=== PATIENT | male | born 1955 | race Caucasian/White ===

== ENCOUNTER 2018-06-23 05:03 | Inpatient (IN) ==
[2018-06-23 05:42] LABS: Basophils # 0.1 K/mm3 (0-0.2); Basophils % 0.3 % (0.1-2.0); Eosinophils # 0.1 K/mm3 (0.0-0.4); Eosinophils % 0.7 % (0.1-12.0); Hematocrit 49.9 % (42.0-52.0); Hemoglobin 16.2 g/dL (14.1-18.0); Lymphocytes # 2.7 K/mm3 (0.7-4.5); Lymphocytes % 17.2 K/mm3 (10-50); Mean Corpuscular HGB Conc 32.5 g/dL (31.8-35.4); Mean Corpuscular Hemoglobin 31.8 pg (27.0-31.2); Mean Corpuscular Volume 97.6 fl (80-94); Mean Platelet Volume 7.8 fl (7.4-10.4); Monocytes # 0.5 K/mm3 (0.1-1.0); Monocytes % 2.9 % (1.7-9.3); Neutrophils # 12.3 K/mm3 (1.8-7.8); Neutrophils % 78.8 % (37.0-80.0); Platelet Count 251 K/mm3 (142-424); Red Blood Count 5.11 M/mm3 (4.60-6.20); Red Cell Distribution Width 13.7 % (11.5-17.5); White Blood Count 15.6 K/mm3 (4.8-10.8)
[2018-06-23 05:53] LABS: Albumin Level 3.7 gm/dL (3.4-5.0); Bilirubin,Total 1.4 mg/dL (0.2-1.0); Globulin 3.6 gm/dl (1.3-3.2); Total Protein,Serum 7.3 gm/dL (6.4-8.2)
[2018-06-23 06:19] LABS: Appearance,Urine CLEAR (Clear); Blood, Urine Negative (Negative); Color,Urine YELLOW (Yellow); Glucose,Urine (UA) Negative (Negative); Ketones,Urine Negative (Negative); Leukocyte Esterase,Urine Negative (Negative); Microscopic, Urine URINE MICROSCOPIC (MICROSCOPIC); Protein,Urine 1+ (Negative)
[2018-06-23 06:36] LABS: Bacteria,Urine 3+ /lpf; Bilirubin,Urine Negative (Negative); Mucus,Urine 1+ /lpf; Squamous Epithelial Cell,Urine Occasional #/hpf (0-5)
[2018-06-23 06:39] LABS: Lymphocytes % 12 % (10-50); Monocytes % 1 % (2-9); Neutrophils % 81 % (42-76); RBC Morphology Normal; Total Cells Counted 100
--- NOTE | 2018-06-23 07:14 | Emergency Department Note ---
ED Disposition Clinical Impression: Pancreatitis, acute Qualifiers: Pancreatitis type: other Acute pancreatitis complication: no infection or necrosis Qualified Code(s): K85.80 - Other acute pancreatitis without necrosis or infection Cholelithiasis Qualifiers: Cholelithiasis location: gallbladder Cholecystitis presence: with cholecystitis Cholecystitis acuity: acute Biliary obstruction: without biliary obstruction Qualified Code(s): K80.00 - Calculus of gallbladder with acute cholecystitis without obstruction Disposition: Admitted As Inpatient Condition on Discharge: Good Instructions: DI for Nausea -- Adult, DI for Nausea -- Child, DI for Diarrhea and Traveler's Diarrhea -- Adult, DI for Diarrhea and Traveler's Diarrhea -- Child Referrals: Yessy Burton MD [Primary Care Provider] - - Critical Care Critical Care Time: No Attestation: On 06/23/18, the high probability of a clinically significant, sudden or life threatening deterioration of the following system(s) required my full and direct attention, intervention and personal management. The time I documented below is in addition to time spent performing reported procedures but includes the following listed in this critical care notation. Medical Decision Making - Medical Records Medical records reviewed: Yes: I reviewed the patient's medical records. - Blake Inquiry Pt receiving controlled substance: No Vital Signs: 06/23/18 05:11 06/23/18 06:39 Temperature 97.9 F Temperature Source Oral Pulse Rate [Right Radial] 92 H 92 H Respiratory Rate 16 Blood Pressure [Right Arm] 129/75 127/77 Blood Pressure Mean [Right Arm] 93 93 Blood Pressure Source [Right Arm] Automatic Cuff Manual Cuff/ Doppler Blood Pressure Position [Right Arm] Sitting Sitting 02 Sat by Pulse Oximetry 95 95 Oxygen Delivery Method Room Air - Lab Data Lab results reviewed: Yes: I reviewed the patient's lab results. Lab Results 06/23/18 05:30: WBC 15.6 H, RBC 5.11, Hgb 16.2, Hct 49.9, MCV 97.6 H, MCH 31.8 H , MCHC 32.5, RDW 13.7, Plt Count 251, MPV 7.8, Neut % (Auto) 78.8, Lymph % (Auto) 17.2, [place] % (Auto) 2.9, Eos % (Auto) 0.7, Baso % (Auto) 0.3, Neut # (Auto) 12.3 H, Lymph # (Auto) 2.7, [place] # (Auto) 0.5, Eos # (Auto) 0.1, Baso # (Auto) 0.1, Total Counted 100, Neutrophils % (Manual) 81 H, Lymphocytes % (Manual) 12, Atypical Lymphs % 6.0, Monocytes % (Manual) 1 L, Platelet Estimate Normal, RBC Morphology Normal 06/23/18 05:30: Sodium 145, Potassium 4.0, Chloride 107, Carbon Dioxide 27, Anion Gap 15.0, BUN 19 H, Creatinine 1.74 H, Estimated Creat Clear 46, Estimated GFR 40 L, Est GFR ( Amer) 49 L, Glucose 197 H, Calcium 9.0, Total Bilirubin 1.4 H, AST 235 H, ALT 139 H, Alkaline Phosphatase 129 H, Total Protein 7.3, Albumin 3.7, Globulin 3.6 H, Albumin/Globulin Ratio 1.0 L, Amylase 2360 H*, Lipase 16546 H 06/23/18 05:30: C-Reactive Protein 0.4 06/23/18 06:10: Urine Color Yellow, Urine Appearance Clear, Urine pH 6.0, Ur Specific [place] 1.020, Urine Protein 1+, Urine Glucose (UA) Negative, Urine Ketones Negative, Urine Blood Negative, Urine Nitrate Negative, Urine Bilirubin Negative, Urine Urobilinogen 4.0, Ur Leukocyte Esterase Negative, Urine WBC 3-5, Ur Squamous Epith Cells Occasional, Urine Bacteria 3+, Urine Mucus 1+ Result diagrams: 06/23/18 05:30 06/23/18 05:30 Orders (Tests/Meds): ED MEDICATIONS Discontinued Medications Generic Name Dose Route Start Last Admin Trade Name Darion PRN Reason Stop Dose Admin Famotidine 20 mg 06/23/18 05:21 06/23/18 05:41 Pepcid 20mg/2ml Vial IV 06/23/18 05:22 20 mg ONCE ONE Administration Sodium Chloride 1,000 mls @ 999 mls/hr 06/23/18 05:30 06/23/18 05:41 Sod Chlor 0.9% 1000ml Bag IV 06/23/18 06:30 999 mls/hr .Q1H1M TIFFANY Administration Ketorolac Tromethamine 30 mg 06/23/18 06:02 06/23/18 06:15 Toradol 30mg/Ml Vial IV 06/23/18 06:03 Not Given ONCE ONE Metoclopramide HCl 10 mg 06/23/18 05:21 06/23/18 05:41 Reglan 10mg/2ml Vial IVP 06/23/18 05:22 10 mg ONCE ONE Administration Morphine Sulfate 4 mg 06/23/18 06:04 06/23/18 06:14 Morphine 4mg/Ml Syringe IV 06/23/18 06:05 4 mg ONCE ONE Administration Ondansetron HCl 4 mg 06/23/18 06:03 06/23/18 06:14 Zofran 4mg/2ml Vial IV 06/23/18 06:04 4 mg ONCE ONE Administration ORDERS Category Date Time Status CT abdomen pelvis wo con Stat Cat Scan 06/23/18 05:21 Taken Erythrocyte Sedimentation Rate Stat Lab 06/23/18 05:30 Received Lactic Acid Stat Lab 06/23/18 06:45 Received UA [Urinalysis and Microscopic] Stat Lab 06/23/18 06:10 Ordered Blood Culture Stat Micro 06/23/18 06:53 Ordered Blood Culture Stat Micro 06/23/18 06:53 Ordered Blood Culture Stat Micro 06/23/18 06:53 Ordered Urine Culture Stat Micro 06/23/18 06:10 Received - CT Data CT Scan: Abdomen, Pelvis Time Received: 07:[address] Reviewed: Yes: I have viewed the radiologist's interpretation Preliminary Findings: Abnormal (gallstones -pancreatitis ) - Physician Consults Physician Consulted: jaye Reason -: Admission Nausea/Vomiting/Diarrhea HPI - General Chief complaint: Nausea/Vomiting/Diarrhea Stated complaint: Vomiting Blood,stomach pain Time Seen by Provider: 06/23/18 06:00 Mode of Arrival: Wheelchair Source of Information: Patient, Spouse, Medical Record Limitations: No Limitations Description of Symptoms (Recalled from ER Triage Doc. by RN): Pt reports vomiting since 0230 with abdominal pain radiating into the epigastric area. Pt reports he has been vomiting bright red blood blood. - History of Present Illness HPI Narrative: pt with hx of known gallstones and has upper abd pain this am assoc with nausea - also some blood with vomitus but reports has sl nosebleed- no fever or melena complaint: nausea, vomiting, abdominal pain Onset (ago): hour(s) Associated Abdominal Pain: Yes Location of pain: epigastric Severity: moderate Associated symptoms: nausea/vomiting - Related Data Home Medications Medication Instructions Recorded Confirmed aspirin 81 mg tablet,delayed 81 mg PO DAILY tab 03/27/18 06/23/18 release bisoprolol fumarate 5 mg tablet 5 mg PO DAILY tab 03/27/18 06/23/18 celecoxib 200 mg capsule 200 mg PO DAILY cap 03/27/18 06/23/18 furosemide 20 mg tablet 20 mg PO DAILY tab 03/27/18 06/23/18 gabapentin 100 mg capsule 100 mg PO QHS 03/27/18 06/23/18 omeprazole 40 mg capsule,delayed 40 mg PO DAILY PRN cap 03/27/18 06/23/18 release Allergies Allergy/AdvReac Type Severity Reaction Status Date / Time No Known Allergies Allergy Verified 06/23/18 05:18 [facility] History I have reviewed the patient's past medical history: Yes Medical History: Reports:: Hypertension Other Surgeries: Yes: Appendectomy, Cardiac Catheterization, Colonoscopy Comment: L knee meniscus rx x2, Vasectomy - Social History Smoking Status: Never smoker Alcohol Intake: never - Psychiatric History Expresses thoughts of harming self/others: None Suicide Plan Description: No Plan Family Hx:: Cancer, Heart Attack ROS Obtained: Yes All systems reviewed & no additional complaints - Constitutional Constitutional: Denies fever(s) - Eyes Eyes: Denies change in vision - ENT Ears, Nose, Mouth, and Throat: Denies sore throat - Cardiovascular Cardiovascular: Denies chest pain - Respiratory Respiratory: No cough - Gastrointestinal Gastrointestingal: Reports: as per HPI, abdominal pain, nausea, vomiting - Genitourinary Male Genitourinary: Denies hematuria - Musculoskeletal Musculoskeletal: Denies joint pain - Integumentary/Breasts Skin/Breast: Denies rash - Neurologic Neurologic: Denies seizure-like activity Physical Exam - General General appearance: in no apparent distress - Head Head exam: normocephalic - Eye Eye exam: Present: PERRL, EOMI. Absent: scleral icterus - ENT ENT exam: Present: mucous membranes dry - Neck Neck exam: Present: trachea midline - Respiratory Respiratory exam: Present: normal lung sounds bilaterally. Absent: respiratory distress - Cardiovascular Cardiovascular exam: Present: regular rate, systolic murmur - Abdominal Exam Abdominal exam: Present: soft, tenderness Abdominal tenderness: Present: epigastrium, moderate - Extremities Exam Extremities exam: Present: full ROM - Neurological Exam Neurological exam: Present: alert, oriented X3, CN II-XII intact - Psychiatric Psychiatric exam: Present: normal affect - Skin Skin exam: Absent: rash
--- NOTE | 2018-06-23 08:49 | Consult Report ---
*Admission Date: 06/23/18 *Chief complaint: Abdominal pain *History of present illness: Patient is a 63-year-old white male. In September 2016 he had undergone screening colonoscopy with Dr. Spaulding. He had presented to the emergency department the following day with complaints of left-sided abdominal pain. His workup at that time included a CT scan which revealed gallstones. Patient had seen Dr. Spaulding as a follow-up and it was felt felt that the gallstones were an incidental finding and appropriately cholecystectomy was not pursued. Patient was in his usual state of health until approximately 2 AM this morning at which time he developed acute sudden onset of upper abdominal pain. He describes pain from the lower chest area to the umbilicus. He has associated nausea and vomiting. He presented to the emergency department where he was seen and evaluated. He was found to have some mild elevation of liver function tests with profound elevation of pancreatic enzymes. CT scan without any contrast whatsoever revealed findings of gallstones and inflammatory changes of the pancreas consistent with acute pancreatitis. He was admitted for inpatient management. Surgical consultation was obtained. Review of Systems - Review of Systems Review of systems:: pertinent systems reviewed and negative unless documented below - Constitutional Reports anorexia - Eyes Denies change in vision - ENT Denies abnormal hearing - *Cardiovascular Reports chest pain - *Respiratory Denies shortness of breath - *Gastrointestinal Reports abdominal pain, Reports nausea, Reports vomiting - *Genitourinary Denies difficulty urinating - *Musculoskeletal Denies joint pain - *Neurologic Denies seizure-like activity [facility] History Medical History: Reports:: Hypertension Other Surgeries: Yes: Appendectomy, Cardiac Catheterization, Colonoscopy - *Social History Smoking Status: Never smoker Alcohol Intake: never - Psychiatric History Expresses thoughts of harming self/others: None Suicide Plan Description: No Plan *Family Hx:: Cancer, Heart Attack Meds Home Medications Medication Instructions Recorded Confirmed Type aspirin 81 mg tablet,delayed 81 mg PO DAILY tab 03/27/18 06/23/18 History release bisoprolol fumarate 5 mg tablet 5 mg PO DAILY tab 03/27/18 06/23/18 History celecoxib 200 mg capsule 200 mg PO DAILY cap 03/27/18 06/23/18 History furosemide 20 mg tablet 20 mg PO DAILY tab 03/27/18 06/23/18 History gabapentin 100 mg capsule 100 mg PO QHS 03/27/18 06/23/18 History omeprazole 40 mg capsule,delayed 40 mg PO DAILY PRN cap 03/27/18 06/23/18 History release Allergies Allergy/AdvReac Type Severity Reaction Status Date / Time No Known Allergies Allergy Verified 06/23/18 05:18 Exam Vital signs and Labs for Last 24 Hours: Temp Pulse Resp BP Pulse Ox 97.3 F L 95 H 18 144/81 96 06/23/18 08:37 06/23/18 08:37 06/23/18 08:37 06/23/18 08:37 06/23/18 08:37 Laboratory Results - last 24 hr 06/23/18 05:30: WBC 15.6 H, RBC 5.11, Hgb 16.2, Hct 49.9, MCV 97.6 H, MCH 31.8 H , MCHC 32.5, RDW 13.7, Plt Count 251, MPV 7.8, Neut % (Auto) 78.8, Lymph % (Auto) 17.2, [place] % (Auto) 2.9, Eos % (Auto) 0.7, Baso % (Auto) 0.3, Neut # (Auto) 12.3 H, Lymph # (Auto) 2.7, [place] # (Auto) 0.5, Eos # (Auto) 0.1, Baso # (Auto) 0.1, Total Counted 100, Neutrophils % (Manual) 81 H, Lymphocytes % (Manual) 12, Atypical Lymphs % 6.0, Monocytes % (Manual) 1 L, Platelet Estimate Normal, RBC Morphology Normal 06/23/18 05:30: Sodium 145, Potassium 4.0, Chloride 107, Carbon Dioxide 27, Anion Gap 15.0, BUN 19 H, Creatinine 1.74 H, Estimated Creat Clear 46, Estimated GFR 40 L, Est GFR ( Amer) 49 L, Glucose 197 H, Calcium 9.0, Total Bilirubin 1.4 H, AST 235 H, ALT 139 H, Alkaline Phosphatase 129 H, Total Protein 7.3, Albumin 3.7, Globulin 3.6 H, Albumin/Globulin Ratio 1.0 L, Amylase 2360 H*, Lipase 88058 H 06/23/18 05:30: ESR 8 06/23/18 05:30: C-Reactive Protein 0.4 06/23/18 06:10: Urine Color Yellow, Urine Appearance Clear, Urine pH 6.0, Ur Specific [place] 1.020, Urine Protein 1+, Urine Glucose (UA) Negative, Urine Ketones Negative, Urine Blood Negative, Urine Nitrate Negative, Urine Bilirubin Negative, Urine Urobilinogen 4.0, Ur Leukocyte Esterase Negative, Urine WBC 3-5, Ur Squamous Epith Cells Occasional, Urine Bacteria 3+, Urine Mucus 1+ 06/23/18 06:45: Lactate 2.1 H I & O for Last 24 hours: Intake & Output 06/20/18 06/21/18 06/22/18 06/23/18 11:59 11:59 11:59 11:59 Weight 290 lb - Constitutional mild distress - *Routine HEENT Exam Comments: Sclera nonicteric - *Routine Respiratory Exam Present: CTA bilaterally - *Routine Cardiovascular Exam Present: RRR - *Routine Abdominal Exam Present: tenderness Comments: Patient has significant tenderness mostly in the mid upper abdomen with some voluntary guarding Results - Labs 06/23/18 05:30 06/23/18 05:30 Laboratory Results - last 24 hr 06/23/18 05:30: WBC 15.6 H, RBC 5.11, Hgb 16.2, Hct 49.9, MCV 97.6 H, MCH 31.8 H , MCHC 32.5, RDW 13.7, Plt Count 251, MPV 7.8, Neut % (Auto) 78.8, Lymph % (Auto) 17.2, [place] % (Auto) 2.9, Eos % (Auto) 0.7, Baso % (Auto) 0.3, Neut # (Auto) 12.3 H, Lymph # (Auto) 2.7, [place] # (Auto) 0.5, Eos # (Auto) 0.1, Baso # (Auto) 0.1, Total Counted 100, Neutrophils % (Manual) 81 H, Lymphocytes % (Manual) 12, Atypical Lymphs % 6.0, Monocytes % (Manual) 1 L, Platelet Estimate Normal, RBC Morphology Normal 06/23/18 05:30: Sodium 145, Potassium 4.0, Chloride 107, Carbon Dioxide 27, Anion Gap 15.0, BUN 19 H, Creatinine 1.74 H, Estimated Creat Clear 46, Estimated GFR 40 L, Est GFR ( Amer) 49 L, Glucose 197 H, Calcium 9.0, Total Bilirubin 1.4 H, AST 235 H, ALT 139 H, Alkaline Phosphatase 129 H, Total Protein 7.3, Albumin 3.7, Globulin 3.6 H, Albumin/Globulin Ratio 1.0 L, Amylase 2360 H*, Lipase 11702 H 06/23/18 05:30: ESR 8 06/23/18 05:30: C-Reactive Protein 0.4 06/23/18 06:10: Urine Color Yellow, Urine Appearance Clear, Urine pH 6.0, Ur Specific [place] 1.020, Urine Protein 1+, Urine Glucose (UA) Negative, Urine Ketones Negative, Urine Blood Negative, Urine Nitrate Negative, Urine Bilirubin Negative, Urine Urobilinogen 4.0, Ur Leukocyte Esterase Negative, Urine WBC 3-5, Ur Squamous Epith Cells Occasional, Urine Bacteria 3+, Urine Mucus 1+ 06/23/18 06:45: Lactate 2.1 H Assessment and Plan - Assessment and plan all Dx Assessment and Plan for all problems:: Patient has significant pancreatitis, presumed biliary in origin. Plan for bowel rest and IV fluids at this time with antiemetics as needed. Monitor liver function tests. Obtain gallbladder ultrasound tomorrow morning. If he has progressive elevation of bilirubin/alkaline phosphatase he could require ERCP urgently. Eventual plan will be for cholecystectomy to eliminate the presumed etiology of pancreatitis.
--- NOTE | 2018-06-23 10:35 | Pharmacy Consult Notes ---
[facility] Pharmacy VTE Monitoring - Patient Demographics Admission date: 06/23/18 Report Date: 06/23/18 Time: 10:34 Allergies/Adverse Reactions: Patient Allergies No Known Allergies Allergy (Verified 06/23/18 05:18) Height: 1.78 m Weight: 131.542 kg Patient Problems: Current Active Problems Pancreatitis, acute (Acute) Cholelithiasis (Acute) - VTE Risk Labs: VTE Related Lab Results Hgb 16.2 g/dL (14.1-18.0) 06/23/18 05:30 Hct 49.9 % (42.0-52.0) 06/23/18 05:30 Plt Count 251 K/mm3 (142-424) 06/23/18 05:30 BUN 19 mg/dL (7-18) H 06/23/18 05:30 Creatinine 1.74 mg/dL (0.70-1.30) H 06/23/18 05:30 Estimated Creat Clear 46 mL/min (0-300) 06/23/18 05:30 Was VTE Risk Assessment Performed: Yes VTE Score: 2 VTE Risk Level: Low Risk - Prophylaxis VTE Prophylaxis Ordered?: Yes Types of VTE Prophylaxis: TEDS Knee High Location of Applied Device: Bilateral Lower Extremeties - VTE Diagnosis Confirmed Treatment or plan recommended: Continue Current Treatment
--- NOTE | 2018-06-23 12:23 | Progress Note ---
Internal Medicine - PN: Subj *Date: 06/23/18 *Time: 12:20 Interval history: The patient is seen in the chart is reviewed. He has cholelithiasis which has been known. He now has evolved to cholecystitis with pancreatitis. Dr. Heart has consulted on the patient. Patient is receiving IV antibiotics. He is n.p.o. except for water and ice chips. He is receiving pain medication. He has some degree of heart history. He will be placed on telemetry. EKG is normal. Exam Vital signs and Labs for Last 24 Hours: Temp Pulse Resp BP Pulse Ox 97.3 F L 95 H 18 144/81 96 06/23/18 08:37 06/23/18 10:21 06/23/18 10:21 06/23/18 08:37 06/23/18 10:21 Laboratory Results - last 24 hr 06/23/18 05:30: WBC 15.6 H, RBC 5.11, Hgb 16.2, Hct 49.9, MCV 97.6 H, MCH 31.8 H , MCHC 32.5, RDW 13.7, Plt Count 251, MPV 7.8, Neut % (Auto) 78.8, Lymph % (Auto) 17.2, [place] % (Auto) 2.9, Eos % (Auto) 0.7, Baso % (Auto) 0.3, Neut # (Auto) 12.3 H, Lymph # (Auto) 2.7, [place] # (Auto) 0.5, Eos # (Auto) 0.1, Baso # (Auto) 0.1, Total Counted 100, Neutrophils % (Manual) 81 H, Lymphocytes % (Manual) 12, Atypical Lymphs % 6.0, Monocytes % (Manual) 1 L, Platelet Estimate Normal, RBC Morphology Normal 06/23/18 05:30: Sodium 145, Potassium 4.0, Chloride 107, Carbon Dioxide 27, Anion Gap 15.0, BUN 19 H, Creatinine 1.74 H, Estimated Creat Clear 46, Estimated GFR 40 L, Est GFR ( Amer) 49 L, Glucose 197 H, Calcium 9.0, Total Bilirubin 1.4 H, AST 235 H, ALT 139 H, Alkaline Phosphatase 129 H, Total Protein 7.3, Albumin 3.7, Globulin 3.6 H, Albumin/Globulin Ratio 1.0 L, Amylase 2360 H*, Lipase 41013 H 06/23/18 05:30: ESR 8 06/23/18 05:30: C-Reactive Protein 0.4 06/23/18 05:30: Lactate Dehydrogenase 436 H 06/23/18 06:10: Urine Color Yellow, Urine Appearance Clear, Urine pH 6.0, Ur Specific [place] 1.020, Urine Protein 1+, Urine Glucose (UA) Negative, Urine Ketones Negative, Urine Blood Negative, Urine Nitrate Negative, Urine Bilirubin Negative, Urine Urobilinogen 4.0, Ur Leukocyte Esterase Negative, Urine WBC 3-5, Ur Squamous Epith Cells Occasional, Urine Bacteria 3+, Urine Mucus 1+ 06/23/18 06:45: Lactate 2.1 H 06/23/18 10:45: Lactate 2.6 H I & O for Last 24 hours: Intake & Output 06/21/18 06/22/18 06/23/18 06/24/18 11:59 11:59 11:59 11:59 Weight 290 lb - Constitutional moderate distress - *Routine HEENT Exam Head: Present: normocephalic Eye: Present: PERRL ENT: Present: mucous membranes moist - *Routine Respiratory Exam Present: CTA bilaterally - *Routine Cardiovascular Exam Present: tachycardia (Sinus tachycardia) - *Routine Abdominal Exam Present: soft, tenderness (Epigastric tenderness) - *Routine Extremities Exam Present: edema Comments: Trace to 1+ - *Routine Skin Exam Present: intact, dry - *Routine Neurological Exam Present: alert, oriented X3 Assessment and Plan (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 I increased the Dilaudid dose. EKG is normal. Cardiac telemetry is ordered.
--- NOTE | 2018-06-23 13:56 | History & Physical Report ---
*Admission Date: 06/23/18 *Chief complaint: Abdominal pain nausea and vomiting. *History of present illness: This 63-year-old white male admitted in the emergency room early this morning with abdominal pain nausea and vomiting. He states that his pain started about 2 AM. Prior to that he had felt well through the day. Patient has known cholelithiasis which was documented in 2015. Dr. Spaulding consulted on him at that time. In the emergency room his amylase and lipase were markedly elevated. He was admitted with the impression of cholelithiasis and pancreatitis. This was confirmed on CT scan prior to admission. Significant in the patient's picture is some coronary artery disease. 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 He has been followed for this by Dr. Hernandez. Also significant in the past history is a DVT and pulmonary embolism in 2004. [facility] History Medical History: Reports:: Hypertension Other Surgeries: Yes: Appendectomy, Cardiac Catheterization, Colonoscopy - *Social History Educational Level: Completed High School Smoking Status: Never smoker Alcohol Intake: never Occupational Status: employed - Psychiatric History Expresses thoughts of harming self/others: None Suicide Plan Description: No Plan *Family Hx:: Cancer (Father at age 73 of lung cancer), Heart Attack (Mother at age 50 of a heart attack) Review of Systems - Constitutional Denies chills, Denies fever(s), Denies weight loss - Eyes Denies change in vision - *Cardiovascular Denies chest pain, Denies chest pain with activity, Denies shortness of breath - *Respiratory Denies chest congestion, Denies cough - *Gastrointestinal Reports abdominal pain, Reports bloating, Reports heartburn (He takes omeprazole), Reports vomiting blood, Reports nausea, Denies black, tarry stools - *Genitourinary Denies difficulty urinating - *Musculoskeletal Denies body aches, Denies neck pain - *Neurologic Reports dizziness (Episodic in the past history), Denies abnormal hearing, Denies seizure-like activity - Psychiatric Denies depression Meds Home Medications Medication Instructions Recorded Confirmed Type aspirin 81 mg tablet,delayed 81 mg PO DAILY tab 03/27/18 06/23/18 History release bisoprolol fumarate 5 mg tablet 5 mg PO DAILY tab 03/27/18 06/23/18 History celecoxib 200 mg capsule 200 mg PO DAILY cap 03/27/18 06/23/18 History furosemide 20 mg tablet 20 mg PO DAILY tab 03/27/18 06/23/18 History gabapentin 100 mg capsule 100 mg PO QHS 03/27/18 06/23/18 History omeprazole 40 mg capsule,delayed 40 mg PO DAILY PRN cap 03/27/18 06/23/18 History release Allergies Allergy/AdvReac Type Severity Reaction Status Date / Time No Known Allergies Allergy Verified 06/23/18 05:18 Exam Vital signs and Labs for Last 24 Hours: Temp Pulse Resp BP Pulse Ox 97.3 F L 100 H 18 144/81 96 06/23/18 08:37 06/23/18 12:00 06/23/18 10:21 06/23/18 08:37 06/23/18 10:21 Laboratory Results - last 24 hr 06/23/18 05:30: WBC 15.6 H, RBC 5.11, Hgb 16.2, Hct 49.9, MCV 97.6 H, MCH 31.8 H , MCHC 32.5, RDW 13.7, Plt Count 251, MPV 7.8, Neut % (Auto) 78.8, Lymph % (Auto) 17.2, [place] % (Auto) 2.9, Eos % (Auto) 0.7, Baso % (Auto) 0.3, Neut # (Auto) 12.3 H, Lymph # (Auto) 2.7, [place] # (Auto) 0.5, Eos # (Auto) 0.1, Baso # (Auto) 0.1, Total Counted 100, Neutrophils % (Manual) 81 H, Lymphocytes % (Manual) 12, Atypical Lymphs % 6.0, Monocytes % (Manual) 1 L, Platelet Estimate Normal, RBC Morphology Normal 06/23/18 05:30: Sodium 145, Potassium 4.0, Chloride 107, Carbon Dioxide 27, Anion Gap 15.0, BUN 19 H, Creatinine 1.74 H, Estimated Creat Clear 46, Estimated GFR 40 L, Est GFR ( Amer) 49 L, Glucose 197 H, Calcium 9.0, Total Bilirubin 1.4 H, AST 235 H, ALT 139 H, Alkaline Phosphatase 129 H, Total Protein 7.3, Albumin 3.7, Globulin 3.6 H, Albumin/Globulin Ratio 1.0 L, Amylase 2360 H*, Lipase 56287 H 06/23/18 05:30: ESR 8 09/16/18 05:30: C-Reactive Protein 0.4 06/23/18 05:30: Lactate Dehydrogenase 436 H 06/23/18 06:10: Urine Color Yellow, Urine Appearance Clear, Urine pH 6.0, Ur Specific [place] 1.020, Urine Protein 1+, Urine Glucose (UA) Negative, Urine Ketones Negative, Urine Blood Negative, Urine Nitrate Negative, Urine Bilirubin Negative, Urine Urobilinogen 4.0, Ur Leukocyte Esterase Negative, Urine WBC 3-5, Ur Squamous Epith Cells Occasional, Urine Bacteria 3+, Urine Mucus 1+ 06/23/18 06:45: Lactate 2.1 H 06/23/18 10:45: Lactate 2.6 H 06/23/18 12:50: Lactate 2.6 H I & O for Last 24 hours: Intake & Output 06/21/18 06/22/18 06/23/18 06/24/18 11:59 11:59 11:59 11:59 Intake Total 0 / 0 Balance 0 / 0 Weight 290 lb - Constitutional moderate distress - *Routine HEENT Exam Head: Present: normocephalic Eye: Present: PERRL ENT: Present: mucous membranes dry - *Routine Neck Exam Present: supple. Absent: lymphadenopathy - Routine Chest/Breast/Axilla Exam Chest wall: Absent: tenderness - *Routine Respiratory Exam Present: CTA bilaterally - *Routine Cardiovascular Exam Present: tachycardia Comments: Sinus tachycardia 120 - *Routine Abdominal Exam Comments: Obese. Tenderness in the epigastric region. No masses or organomegaly - *Routine Rectal Exam Comments: Not performed - *Routine Extremities Exam Present: edema Comments: 1+ edema - *Routine Neurological Exam Present: alert, oriented X3 Uncomfortable due to pain. H&P: Result - Imaging and Cardiology CT scan - abdomen Status: final report Assessment and Plan (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 See Dr. Heart's consultation. He is receiving IV antibiotics and pain medication. traffic monitor specialist is placed. EKG is obtained and reviewed.
[2018-06-24 06:49] LABS: Basophils % 0.1 % (0.1-2.0); Eosinophils # 0.1 K/mm3 (0.0-0.4); Eosinophils % 0.4 % (0.1-12.0); Hematocrit 42.6 % (42.0-52.0); Hemoglobin 13.6 g/dL (14.1-18.0); Lymphocytes # 1.7 K/mm3 (0.7-4.5); Lymphocytes % 12.8 K/mm3 (10-50); Mean Corpuscular HGB Conc 31.8 g/dL (31.8-35.4); Mean Corpuscular Hemoglobin 31.5 pg (27.0-31.2); Mean Corpuscular Volume 98.9 fl (80-94); Monocytes # 0.7 K/mm3 (0.1-1.0); Monocytes % 5.3 % (1.7-9.3); Neutrophils # 10.7 K/mm3 (1.8-7.8); Neutrophils % 81.4 % (37.0-80.0); Platelet Count 171 K/mm3 (142-424); Red Cell Distribution Width 13.8 % (11.5-17.5); White Blood Count 13.2 K/mm3 (4.8-10.8)
[2018-06-24 06:59] LABS: Albumin Level 3.1 gm/dL (3.4-5.0); Albumin/Globulin Ratio 0.9 (1.1-1.8); Anion Gap 9.7 mEq/L (5-15); Bilirubin,Total 1.3 mg/dL (0.2-1.0); Calcium 8.3 mg/dL (8.5-10.1); Chol/HDL Ratio 2.1 (1-3.5); Globulin 3.3 gm/dl (1.3-3.2); Potassium 4.7 mmoL/L (3.5-5.1); Total Protein,Serum 6.4 gm/dL (6.4-8.2)
--- NOTE | 2018-06-24 07:55 | Progress Note ---
Subjective Narrative: Patient states that his symptoms had improved somewhat overnight but he does have some increasing pain today. He denies any nausea. Exam Vital signs and Labs for Last 24 Hours: Temp Pulse Resp BP Pulse Ox 98.4 F 85 18 130/80 93 L 06/24/18 04:00 06/24/18 04:00 06/24/18 04:00 06/24/18 04:00 06/24/18 04:00 Laboratory Results - last 24 hr 06/23/18 05:30: Lactate Dehydrogenase 436 H 06/23/18 10:45: Lactate 2.6 H 06/23/18 12:50: Lactate 2.6 H 06/24/18 06:30: WBC 13.2 H, RBC 4.30 L, Hgb 13.6 L, Hct 42.6, MCV 98.9 H, MCH 31.5 H, MCHC 31.8, RDW 13.8, Plt Count 171 D, MPV 8.0, Neut % (Auto) 81.4 H, Lymph % (Auto) 12.8, [place] % (Auto) 5.3, Eos % (Auto) 0.4, Baso % (Auto) 0.1, Neut # (Auto) 10.7 H, Lymph # (Auto) 1.7, [place] # (Auto) 0.7, Eos # (Auto) 0.1, Baso # (Auto) 0.0 06/24/18 06:30: Sodium 143, Potassium 4.7, Chloride 108 H, Carbon Dioxide 30, Anion Gap 9.7, BUN 16, Creatinine 1.25 D, Estimated Creat Clear 64, Estimated GFR 59, Est GFR ( Amer) 71 D, Glucose 112 H, Calcium 8.3 L, Total Bilirubin 1.3 H, AST 86 H D, ALT 181 H D, Alkaline Phosphatase 102, Total Protein 6.4, Albumin 3.1 L D, Globulin 3.3 H, Albumin/Globulin Ratio 0.9 L, Tr iglycerides 49, Cholesterol 93 L, LDL Cholesterol 38, VLDL Cholesterol 10, HDL Cholesterol 45, Cholesterol/HDL Ratio 2.1, Amylase 423 H*, Lipase 3303 H I & O for Last 24 hours: Intake & Output 06/21/18 06/22/18 06/23/18 06/24/18 11:59 11:59 11:59 11:59 Intake Total 340 / 340 Output Total 500 / 500 Balance -160 / -160 Weight 290 lb Microbiology Reports for the Last 24 Hours: Microbiology 06/23/18 06:10 Urine,Clean Catch Urine Culture - Preliminary NO GROWTH AFTER 24 HOURS - *Routine Abdominal Exam Present: soft Comments: He has mild tenderness in the right upper quadrant and epigastrium without guarding or rebound. Progress Note: A&P (1) Myocardial bridge Status: Acute Current Visit: Yes (2) Hypertension Status: Acute Current Visit: Yes Assessment and Plan for All Diagnoses:: Laboratory studies have shown some improvement in pancreatitis. Continue bowel, rest IV fluids and intravenous antibiotics. Gallbladder ultrasound today to assess gallbladder and biliary tree.
--- NOTE | 2018-06-24 09:27 | Progress Note ---
Internal Medicine - PN: Subj *Date: 06/24/18 *Time: 09:24 Interval history: He feels better but still has abdominal discomfort. He had an ultrasound performed this morning. He complains of cough and production of bright red blood. He remains afebrile. His amylase and lipase have declined si gnificantly. His lungs sound clear. His heart is regular. His abdomen is distended but soft. Bowel sounds are decreased. Exam Vital signs and Labs for Last 24 Hours: Temp Pulse Resp BP Pulse Ox 99.1 F 86 18 129/71 96 06/24/18 08:00 06/24/18 08:00 06/24/18 08:00 06/24/18 08:00 06/24/18 08:00 Laboratory Results - last 24 hr 06/23/18 05:30: Lactate Dehydrogenase 436 H 06/23/18 10:45: Lactate 2.6 H 06/23/18 12:50: Lactate 2.6 H 06/24/18 06:30: WBC 13.2 H, RBC 4.30 L, Hgb 13.6 L, Hct 42.6, MCV 98.9 H, MCH 31.5 H, MCHC 31.8, RDW 13.8, Plt Count 171 D, MPV 8.0, Neut % (Auto) 81.4 H, Lymph % (Auto) 12.8, [place] % (Auto) 5.3, Eos % (Auto) 0.4, Baso % (Auto) 0.1, Neut # (Auto) 10.7 H, Lymph # (Auto) 1.7, [place] # (Auto) 0.7, Eos # (Auto) 0.1, Baso # (Auto) 0.0 06/24/18 06:30: Sodium 143, Potassium 4.7, Chloride 108 H, Carbon Dioxide 30, Anion Gap 9.7, BUN 16, Creatinine 1.25 D, Estimated Creat Clear 64, Estimated GFR 59, Est GFR ( Amer) 71 D, Glucose 112 H, Calcium 8.3 L, Total Bilirubin 1.3 H, AST 86 H D, ALT 181 H D, Alkaline Phosphatase 102, Total Protein 6.4, Albumin 3.1 L D, Globulin 3.3 H, Albumin/Globulin Ratio 0.9 L, Triglycerides 49, Cholesterol 93 L, LDL Cholesterol 38, VLDL Cholesterol 10, HDL Cholesterol 45, Cholesterol/HDL Ratio 2.1, Amylase 423 H*, Lipase 3303 H I & O for Last 24 hours: Intake & Output 06/21/18 06/22/18 06/23/18 06/24/18 11:59 11:59 11:59 11:59 Intake Total 340 / 340 Output Total 500 / 500 Balance -160 / -160 Weight 290 lb Microbiology Reports for the Last 24 Hours: Microbiology 06/23/18 06:10 Urine,Clean Catch Urine Culture - Preliminary NO GROWTH AFTER 24 HOURS - Constitutional no acute distress - *Routine HEENT Exam Head: Present: normocephalic Eye: Present: PERRL ENT: Present: mucous membranes moist - *Routine Respiratory Exam Present: CTA bilaterally - *Routine Cardiovascular Exam Present: RRR - *Routine Abdominal Exam Present: soft, distended. Absent: organomegaly - *Routine Extremities Exam Present: edema Comments: 1-2+ - *Routine Neurological Exam Present: alert, oriented X3 Assessment and Plan (1) Myocardial bridge Current visit: Yes Status: Acute Category: Medical Code(s): Q24.5 - Malformation of coronary vessels (2) Hypertension Current visit: Yes Status: Acute Category: Medical Code(s): I10 - Essential (primary) hypertension (3) Cholelithiasis Current visit: Yes Status: Acute Qualifiers: Cholelithiasis location: gallbladder Cholecystitis presence: with cholecystitis Cholecystitis acuity: acute Biliary obstruction: without biliary obstruction Qualified Code(s): K80.00 - Calculus of gallbladder with acute cholecystitis without obstruction Category: Medical Code(s): K80.20 - Calculus of gallbladder without cholecystitis without obstruction (4) Pancreatitis, acute Current visit: Yes Status: Acute Qualifiers: Pancreatitis type: other Acute pancreatitis complication: no infection or necrosis Qualified Code(s): K85.80 - Other acute pancreatitis without necrosis or infection Category: Medical Code(s): K85.90 - Acute pancreatitis without necrosis or infection, unspecified
[2018-06-24 17:14] LABS: Basophils % 0.2 % (0.1-2.0); Eosinophils # 0.1 K/mm3 (0.0-0.4); Eosinophils % 0.6 % (0.1-12.0); Hematocrit 41.9 % (42.0-52.0); Hemoglobin 13.5 g/dL (14.1-18.0); Lymphocytes # 1.4 K/mm3 (0.7-4.5); Lymphocytes % 10.9 K/mm3 (10-50); Mean Corpuscular HGB Conc 32.3 g/dL (31.8-35.4); Mean Corpuscular Hemoglobin 31.9 pg (27.0-31.2); Mean Corpuscular Volume 98.7 fl (80-94); Mean Platelet Volume 7.5 fl (7.4-10.4); Monocytes # 0.5 K/mm3 (0.1-1.0); Monocytes % 4.1 % (1.7-9.3); Neutrophils # 10.8 K/mm3 (1.8-7.8); Neutrophils % 84.2 % (37.0-80.0); Platelet Count 153 K/mm3 (142-424); Red Blood Count 4.24 M/mm3 (4.60-6.20); Red Cell Distribution Width 13.9 % (11.5-17.5); White Blood Count 12.8 K/mm3 (4.8-10.8)
[2018-06-25 06:46] LABS: Basophils % 0.2 % (0.1-2.0); Eosinophils # 0.1 K/mm3 (0.0-0.4); Eosinophils % 0.9 % (0.1-12.0); Hematocrit 43.2 % (42.0-52.0); Hemoglobin 13.9 g/dL (14.1-18.0); Lymphocytes % 14.3 K/mm3 (10-50); Mean Corpuscular HGB Conc 32.1 g/dL (31.8-35.4); Mean Corpuscular Hemoglobin 31.6 pg (27.0-31.2); Mean Corpuscular Volume 98.6 fl (80-94); Mean Platelet Volume 8.1 fl (7.4-10.4); Monocytes # 0.8 K/mm3 (0.1-1.0); Monocytes % 5.5 % (1.7-9.3); Neutrophils # 11.1 K/mm3 (1.8-7.8); Platelet Count 186 K/mm3 (142-424); Red Blood Count 4.38 M/mm3 (4.60-6.20); Red Cell Distribution Width 13.7 % (11.5-17.5); White Blood Count 14.1 K/mm3 (4.8-10.8)
--- NOTE | 2018-06-25 06:53 | Progress Note ---
Subjective Narrative: Patient resting comfortably. Exam Vital signs and Labs for Last 24 Hours: Temp Pulse Resp BP Pulse Ox 98.2 F 88 20 115/72 92 L 06/25/18 04:00 06/25/18 04:00 06/25/18 04:00 06/25/18 04:00 06/25/18 04:00 Laboratory Results - last 24 hr 06/24/18 06:30: Sodium 143, Potassium 4.7, Chloride 108 H, Carbon Dioxide 30, Anion Gap 9.7, BUN 16, Creatinine 1.25 D, Estimated Creat Clear 64, Estimated GFR 59, Est GFR ( Amer) 71 D, Glucose 112 H, Calcium 8.3 L, Total Bilirubin 1.3 H, AST 86 H D, ALT 181 H D, Alkaline Phosphatase 102, Total Protein 6.4, Albumin 3.1 L D, Globulin 3.3 H, Albumin/Globulin Ratio 0.9 L, Triglycerides 49, Cholesterol 93 L, LDL Cholesterol 38, VLDL Cholesterol 10, HDL Cholesterol 45, Cholesterol/HDL Ratio 2.1, Amylase 423 H*, Lipase 3303 H 06/24/18 17:05: WBC 12.8 H, RBC 4.24 L, Hgb 13.5 L, Hct 41.9 L, MCV 98.7 H, MCH 31.9 H, MCHC 32.3, RDW 13.9, Plt Count 153, MPV 7.5, Neut % (Auto) 84.2 H, Lymph % (Auto) 10.9, [place] % (Auto) 4.1, Eos % (Auto) 0.6, Baso % (Auto) 0.2, Neut # (Auto) 10.8 H, Lymph # (Auto) 1.4, [place] # (Auto) 0.5, Eos # (Auto) 0.1, Baso # (Auto) 0.0 I & O for Last 24 hours: Intake & Output 06/22/18 06/23/18 06/24/18 06/25/18 11:59 11:59 11:59 11:59 Intake Total 150 / 150 390 / 390 940 / 940 Output Total 500 / 500 2 / 2 Balance 150 / 150 -110 / -110 938 / 938 Weight 290 lb 290 lb 0.007 oz Microbiology Reports for the Last 24 Hours: Microbiology 06/23/18 06:10 Urine,Clean Catch Urine Culture - Final NO GROWTH AFTER 48 HOURS - Constitutional no acute distress Progress Note: A&P (1) Myocardial bridge Status: Acute Current Visit: Yes (2) Hypertension Status: Acute Current Visit: Yes (3) Cholelithiasis Status: Acute Current Visit: Yes (4) Pancreatitis, acute Status: Acute Current Visit: Yes Assessment and Plan for All Diagnoses:: Started clears yesterday. Check labs again today. Possible cholecystectomy this week.
[2018-06-25 06:59] LABS: Albumin/Globulin Ratio 0.8 (1.1-1.8); Anion Gap 10.3 mEq/L (5-15); Bilirubin,Total 1.3 mg/dL (0.2-1.0); Calcium 8.4 mg/dL (8.5-10.1); Globulin 3.8 gm/dl (1.3-3.2); Potassium 4.3 mmoL/L (3.5-5.1); Total Protein,Serum 6.8 gm/dL (6.4-8.2)
--- NOTE | 2018-06-25 08:56 | Progress Note ---
Internal Medicine - PN: Subj *Date: 06/25/18 *Time: 08:52 Interval history: He still has abdominal discomfort. He is using his incentive spirometer after. His temperature is below 100. His white count is still elevated. He states that he is passing gas. He has had no bowel movement since admission. Exam Vital signs and Labs for Last 24 Hours: Temp Pulse Resp BP Pulse Ox 99.4 F 89 18 136/80 93 L 06/25/18 07:14 06/25/18 07:14 06/25/18 07:14 06/25/18 07:14 06/25/18 07:14 Laboratory Results - last 24 hr 06/24/18 17:05: WBC 12.8 H, RBC 4.24 L, Hgb 13.5 L, Hct 41.9 L, MCV 98.7 H, MCH 31.9 H, MCHC 32.3, RDW 13.9, Plt Count 153, MPV 7.5, Neut % (Auto) 84.2 H, Lymph % (Auto) 10.9, [place] % (Auto) 4.1, Eos % (Auto) 0.6, Baso % (Auto) 0.2, Neut # (Auto) 10.8 H, Lymph # (Auto) 1.4, [place] # (Auto) 0.5, Eos # (Auto) 0.1, Baso # (Auto) 0.0 06/25/18 06:36: WBC 14.1 H, RBC 4.38 L, Hgb 13.9 L, Hct 43.2, MCV 98.6 H, MCH 31.6 H, MCHC 32.1, RDW 13.7, Plt Count 186, MPV 8.1, Neut % (Auto) 79.0, Lymph % (Auto) 14.3, [place] % (Auto) 5.5, Eos % (Auto) 0.9, Baso % (Auto) 0.2, Neut # (Auto) 11.1 H, Lymph # (Auto) 2.0, [place] # (Auto) 0.8, Eos # (Auto) 0.1, Baso # (Auto) 0.0 06/25/18 06:36: Sodium 139, Potassium 4.3, Chloride 105, Carbon Dioxide 28, Anion Gap 10.3, BUN 12, Creatinine 1.17, Estimated Creat Clear 68, Estimated GFR 63, Est GFR ( Amer) 77, Glucose 113 H, Calcium 8.4 L, Total Bilirubin 1.3 H, AST 34 D, ALT 117 H D, Alkaline Phosphatase 107, Total Protein 6.8, Albumin 3.0 L, Globulin 3.8 H, Albumin/Globulin Ratio 0.8 L, Amylase 167 H, Lipase 955 H I & O for Last 24 hours: Intake & Output 06/22/18 06/23/18 06/24/18 06/25/18 11:59 11:59 11:59 11:59 Intake Total 150 / 150 390 / 390 3139 / 3139 Output Total 500 / 500 2 / 2 Balance 150 / 150 -110 / -110 3137 / 3137 Weight 290 lb 290 lb 0.007 oz Microbiology Reports for the Last 24 Hours: Microbiology 06/23/18 06:45 Blood Blood Culture - Preliminary NO GROWTH AFTER 48 HOURS 06/23/18 06:45 Blood Blood Culture - Preliminary NO GROWTH AFTER 48 HOURS 06/23/18 06:10 Urine,Clean Catch Urine Culture - Final NO GROWTH AFTER 48 HOURS - Constitutional no acute distress - *Routine Respiratory Exam Present: CTA bilaterally - *Routine Cardiovascular Exam Present: RRR - *Routine Abdominal Exam Present: soft, tenderness, distended - *Routine Extremities Exam Present: edema (Trace) Assessment and Plan (1) Myocardial bridge Current visit: Yes Status: Acute Category: Medical Code(s): Q24.5 - Malformation of coronary vessels (2) Hypertension Current visit: Yes Status: Acute Category: Medical Code(s): I10 - Essential (primary) hypertension (3) Cholelithiasis Current visit: Yes Status: Acute Qualifiers: Cholelithiasis location: gallbladder Cholecystitis presence: with cholecystitis Cholecystitis acuity: acute Biliary obstruction: without bi liary obstruction Qualified Code(s): K80.00 - Calculus of gallbladder with acute cholecystitis without obstruction Category: Medical Code(s): K80.20 - Calculus of gallbladder without cholecystitis without obstruction (4) Pancreatitis, acute Current visit: Yes Status: Acute Qualifiers: Pancreatitis type: other Acute pancreatitis complication: no infection or necrosis Qualified Code(s): K85.80 - Other acute pancreatitis without necrosis or infection Category: Medical Code(s): K85.90 - Acute pancreatitis without necrosis or infection, unspecified - Assessment and plan all Dx Assessment and Plan for all problems:: Continue present regimen. Encouraged use of incentive spirometry. See note per Dr. Heart. Ordered a gastroenterology consult.
--- NOTE | 2018-06-25 14:03 | Progress Note ---
Subjective Patient reports: feels better Exam Vital signs and Labs for Last 24 Hours: Temp Pulse Resp BP Pulse Ox 98.3 F 97 H 96 H 110/73 96 06/25/18 11:27 06/25/18 11:27 06/25/18 11:27 06/25/18 11:27 06/25/18 11:27 Laboratory Results - last 24 hr 06/24/18 17:05: WBC 12.8 H, RBC 4.24 L, Hgb 13.5 L, Hct 41.9 L, MCV 98.7 H, MCH 31.9 H, MCHC 32.3, RDW 13.9, Plt Count 153, MPV 7.5, Neut % (Auto) 84.2 H, Lymph % (Auto) 10.9, [place] % (Auto) 4.1, Eos % (Auto) 0.6, Baso % (Auto) 0.2, Neut # (Auto) 10.8 H, Lymph # (Auto) 1.4, [place] # (Auto) 0.5, Eos # (Auto) 0.1, Baso # (Auto) 0.0 06/25/18 06:36: WBC 14.1 H, RBC 4.38 L, Hgb 13.9 L, Hct 43.2, MCV 98.6 H, MCH 31.6 H, MCHC 32.1, RDW 13.7, Plt Count 186, MPV 8.1, Neut % (Auto) 79.0, Lymph % (Auto) 14.3, [place] % (Auto) 5.5, Eos % (Auto) 0.9, Baso % (Auto) 0.2, Neut # (Auto) 11.1 H, Lymph # (Auto) 2.0, [place] # (Auto) 0.8, Eos # (Auto) 0.1, Baso # (Auto) 0.0 06/25/18 06:36: Sodium 139, Potassium 4.3, Chloride 105, Carbon Dioxide 28, Anion Gap 10.3, BUN 12, Creatinine 1.17, Estimated Creat Clear 68, Estimated GFR 63, Est GFR ( Amer) 77, Glucose 113 H, Calcium 8.4 L, Total Bilirubin 1.3 H, AST 34 D, ALT 117 H D, Alkaline Phosphatase 107, Total Protein 6.8, Albumin 3.0 L, Globulin 3.8 H, Albumin/Globulin Ratio 0.8 L, Amylase 167 H, Lipase 955 H I & O for Last 24 hours: Intake & Output 06/23/18 06/24/18 06/25/18 06/26/18 11:59 11:59 11:59 11:59 Intake Total 150 / 150 540 / 540 3189 / 3189 Output Total 500 / 500 2 / 2 150 / 150 Balance 150 / 150 40 / 40 3187 / 3187 -150 / -150 Weight 290 lb 290 lb 0.007 oz Microbiology Reports for the Last 24 Hours: Microbiology 06/23/18 06:45 Blood Blood Culture - Preliminary NO GROWTH AFTER 48 HOURS 06/23/18 06:45 Blood Blood Culture - Preliminary NO GROWTH AFTER 48 HOURS 06/23/18 06:10 Urine,Clean Catch Urine Culture - Final NO GROWTH AFTER 48 HOURS - *Routine Abdominal Exam Present: soft, tenderness. Absent: rebound, guarding Progress Note: A&P (1) Myocardial bridge Status: Acute Current Visit: Yes (2) Hypertension Status: Acute Current Visit: Yes (3) Cholelithiasis Status: Acute Current Visit: Yes (4) Pancreatitis, acute Status: Acute Current Visit: Yes Assessment and Plan for All Diagnoses:: Plan to recheck laboratory studies tomorrow. Possible consideration for cholecystectomy with cholangiogram tomorrow if patient continues clinical improvement of his pancreatitis with improvement of enzymes.
[2018-06-26 05:56] LABS: Basophils % 0.2 % (0.1-2.0); Eosinophils # 0.2 K/mm3 (0.0-0.4); Eosinophils % 1.4 % (0.1-12.0); Hematocrit 40.4 % (42.0-52.0); Hemoglobin 13.2 g/dL (14.1-18.0); Lymphocytes # 1.5 K/mm3 (0.7-4.5); Lymphocytes % 12.2 K/mm3 (10-50); Mean Corpuscular HGB Conc 32.7 g/dL (31.8-35.4); Mean Corpuscular Hemoglobin 32.1 pg (27.0-31.2); Mean Corpuscular Volume 98.3 fl (80-94); Monocytes # 0.7 K/mm3 (0.1-1.0); Monocytes % 5.6 % (1.7-9.3); Neutrophils # 9.9 K/mm3 (1.8-7.8); Neutrophils % 80.6 % (37.0-80.0); Platelet Count 183 K/mm3 (142-424); Red Blood Count 4.11 M/mm3 (4.60-6.20); Red Cell Distribution Width 13.6 % (11.5-17.5); White Blood Count 12.3 K/mm3 (4.8-10.8)
[2018-06-26 06:10] LABS: Albumin Level 2.7 gm/dL (3.4-5.0); Albumin/Globulin Ratio 0.7 (1.1-1.8); Anion Gap 8.4 mEq/L (5-15); Bilirubin,Total 1.2 mg/dL (0.2-1.0); Calcium 8.3 mg/dL (8.5-10.1); Globulin 3.7 gm/dl (1.3-3.2); Potassium 4.4 mmoL/L (3.5-5.1); Total Protein,Serum 6.4 gm/dL (6.4-8.2)
--- NOTE | 2018-06-26 07:02 | Progress Note ---
Subjective Patient reports: feels better, pain is less Narrative: Patient has not required pain medication for several hours. Exam Vital signs and Labs for Last 24 Hours: Temp Pulse Resp BP Pulse Ox 98.4 F 90 18 112/67 96 06/26/18 03:46 06/26/18 04:00 06/26/18 03:46 06/26/18 03:46 06/26/18 03:46 Laboratory Results - last 24 hr 06/25/18 06:36: Sodium 139, Potassium 4.3, Chloride 105, Carbon Dioxide 28, Anion Gap 10.3, BUN 12, Creatinine 1.17, Estimated Creat Clear 68, Estimated GFR 63, Est GFR ( Amer) 77, Glucose 113 H, Calcium 8.4 L, Total Bilirubin 1.3 H, AST 34 D, ALT 117 H D, Alkaline Phosphatase 107, Total Protein 6.8, Albumin 3.0 L, Globulin 3.8 H, Albumin/Globulin Ratio 0.8 L, Amylase 167 H, Lipase 955 H 06/26/18 05:48: WBC 12.3 H, RBC 4.11 L, Hgb 13.2 L, Hct 40.4 L, MCV 98.3 H, MCH 32.1 H, MCHC 32.7, RDW 13.6, Plt Count 183, MPV 8.0, Neut % (Auto) 80.6 H, Lymph % (Auto) 12.2, [place] % (Auto) 5.6, Eos % (Auto) 1.4, Baso % (Auto) 0.2, Neut # (Auto) 9.9 H, Lymph # (Auto) 1.5, [place] # (Auto) 0.7, Eos # (Auto) 0.2, Baso # (Auto) 0.0 06/26/18 05:48: Sodium 139, Potassium 4.4, Chloride 106, Carbon Dioxide 29, Anion Gap 8.4, BUN 8 D, Creatinine 1.15, Estimated Creat Clear 70, Estimated GFR 65, Est GFR ( Amer) 78, Glucose 114 H, Calcium 8.3 L, Total Bilirubin 1.2 H, AST 16 D, ALT 74 D, Alkaline Phosphatase 107, Total Protein 6.4, Albumin 2.7 L, Globulin 3.7 H, Albumin/Globulin Ratio 0.7 L, Amylase 58 D, Lipase 356 I & O for Last 24 hours: Intake & Output 06/23/18 06/24/18 06/25/18 06/26/18 11:59 11:59 11:59 11:59 Intake Total 150 / 150 540 / 540 3189 / 3189 1350 / 1350 Output Total 500 / 500 2 / 2 150 / 150 Balance 150 / 150 40 / 40 3187 / 3187 1200 / 1200 Weight 290 lb 290 lb 0.007 oz Microbiology Reports for the Last 24 Hours: Microbiology 06/23/18 06:45 Blood Blood Culture - Preliminary NO GROWTH AFTER 48 HOURS 06/23/18 06:45 Blood Blood Culture - Preliminary NO GROWTH AFTER 48 HOURS 06/23/18 06:10 Urine,Clean Catch Urine Culture - Final NO GROWTH AFTER 48 HOURS - Constitutional no acute distress - *Routine Abdominal Exam Present: distended. Absent: tenderness Progress Note: A&P (1) Myocardial bridge Status: Acute Current Visit: Yes (2) Hypertension Status: Acute Current Visit: Yes (3) Cholelithiasis Status: Acute Current Visit: Yes (4) Pancreatitis, acute Status: Acute Current Visit: Yes Assessment and Plan for All Diagnoses:: Biliary pancreatitis appears to be improving clinically and by laboratory data. May have mild ileus secondary to pancreatitis. Will tentatively plan cholecystectomy with cholangiogram later today to eliminate source of pancreatitis.
--- NOTE | 2018-06-26 08:05 | Progress Note ---
Internal Medicine - PN: Subj *Date: 06/26/18 *Time: 08:04 Interval history: Patient states he is feeling slightly better today. He is still having abdominal pain. He is scheduled for cholecystectomy with cholangiogram today. Exam Vital signs and Labs for Last 24 Hours: Temp Pulse Resp BP Pulse Ox 98.4 F 90 18 112/67 96 06/26/18 03:46 06/26/18 04:00 06/26/18 03:46 06/26/18 03:46 06/26/18 03:46 Laboratory Results - last 24 hr 06/26/18 05:48: WBC 12.3 H, RBC 4.11 L, Hgb 13.2 L, Hct 40.4 L, MCV 98.3 H, MCH 32.1 H, MCHC 32.7, RDW 13.6, Plt Count 183, MPV 8.0, Neut % (Auto) 80.6 H, Lymph % (Auto) 12.2, [place] % (Auto) 5.6, Eos % (Auto) 1.4, Baso % (Auto) 0.2, Neut # (Auto) 9.9 H, Lymph # (Auto) 1.5, [place] # (Auto) 0.7, Eos # (Auto) 0.2, Baso # (Auto) 0.0 06/26/18 05:48: Sodium 139, Potassium 4.4, Chloride 106, Carbon Dioxide 29, Anion Gap 8.4, BUN 8 D, Creatinine 1.15, Estimated Creat Clear 70, Estimated GFR 65, Est GFR ( Amer) 78, Glucose 114 H, Calcium 8.3 L, Total Bilirubin 1.2 H, AST 16 D, ALT 74 D, Alkaline Phosphatase 107, Total Protein 6.4, Albumin 2.7 L, Globulin 3.7 H, Albumin/Globulin Ratio 0.7 L, Amylase 58 D, Lipase 356 I & O for Last 24 hours: Intake & Output 06/23/18 06/24/18 06/25/18 06/26/18 11:59 11:59 11:59 11:59 Intake Total 150 / 150 540 / 540 3189 / 3189 1350 / 1350 Output Total 500 / 500 2 / 2 150 / 150 Balance 150 / 150 40 / 40 3187 / 3187 1200 / 1200 Weight 290 lb 290 lb 0.007 oz Microbiology Reports for the Last 24 Hours: Microbiology 06/23/18 06:45 Blood Blood Culture - Preliminary NO GROWTH AFTER 48 HOURS 06/23/18 06:45 Blood Blood Culture - Preliminary NO GROWTH AFTER 48 HOURS 06/23/18 06:10 Urine,Clean Catch Urine Culture - Final NO GROWTH AFTER 48 HOURS - Constitutional no acute distress - *Routine Respiratory Exam Present: CTA bilaterally - *Routine Cardiovascular Exam Present: RRR - *Routine Abdominal Exam Present: soft, normoactive bowel sounds, tenderness (RUQ and bilateral lower quadrants) - *Routine Extremities Exam Present: edema (trace bilaterally) - *Routine Skin Exam Present: intact Assessment and Plan (1) Pancreatitis, acute Current visit: Yes Status: Acute Qualifiers: Pancreatitis type: other Acute pancreatitis complication: no infection or necrosis Qualified Code(s): K85.80 - Other acute pancreatitis without necrosis or infection Category: Medical Code(s): K85.90 - Acute pancreatitis without necrosis or infection, unspecified (2) Cholelithiasis Current visit: Yes Status: Acute Qualifiers: Cholelithiasis location: gallbladder Cholecystitis presence: with cholecystitis Cholecystitis acuity: acute Biliary obstruction: without biliary obstruction Qualified Code(s): K80.00 - Calculus of gallbladder with acute cholecystitis without obstruction Category: Medical Code(s): K80.20 - Calculus of gallbladder without cholecystitis without obstruction (3) Myocardial bridge Current visit: Yes Status: Acute Category: Medical Code(s): Q24.5 - Malformation of coronary vessels (4) Hypertension Current visit: Yes Status: Acute Category: Medical Code(s): I10 - Essential (primary) hypertension - Assessment and plan all Dx Assessment and Plan for all problems:: Amylase and lipase have normalized. Patient is scheduled for cholecystectomy with cholangiogram today. Further per Dr. Heart.
--- NOTE | 2018-06-26 08:35 | Progress Note ---
Internal Medicine - PN: Subj *Date: 06/26/18 *Time: 08:35 Exam Vital signs and Labs for Last 24 Hours: Temp Pulse Resp BP Pulse Ox 99.6 F 95 H 20 132/76 96 06/26/18 08:00 06/26/18 08:00 06/26/18 08:00 06/26/18 08:00 06/26/18 08:00 Laboratory Results - last 24 hr 06/26/18 05:48: WBC 12.3 H, RBC 4.11 L, Hgb 13.2 L, Hct 40.4 L, MCV 98.3 H, MCH 32.1 H, MCHC 32.7, RDW 13.6, Plt Count 183, MPV 8.0, Neut % (Auto) 80.6 H, Lymph % (Auto) 12.2, [place] % (Auto) 5.6, Eos % (Auto) 1.4, Baso % (Auto) 0.2, Neut # (Auto) 9.9 H, Lymph # (Auto) 1.5, [place] # (Auto) 0.7, Eos # (Auto) 0.2, Baso # (Auto) 0.0 06/26/18 05:48: Sodium 139, Potassium 4.4, Chloride 106, Carbon Dioxide 29, Anion Gap 8.4, BUN 8 D, Creatinine 1.15, Estimated Creat Clear 70, Estimated GFR 65, Est GFR ( Amer) 78, Glucose 114 H, Calcium 8.3 L, Total Bilirubin 1.2 H, AST 16 D, ALT 74 D, Alkaline Phosphatase 107, Total Protein 6.4, Albumin 2.7 L, Globulin 3.7 H, Albumin/Globulin Ratio 0.7 L, Amylase 58 D, Li pase 356 I & O for Last 24 hours: Intake & Output 06/23/18 06/24/18 06/25/18 06/26/18 23:59 23:59 23:59 23:59 Intake Total 250 / 250 900 / 900 4079 / 4079 Output Total 500 / 500 2 / 2 150 / 150 Balance -250 / -250 898 / 898 3929 / 3929 Weight 131.542 kg 131.542 kg Microbiology Reports for the Last 24 Hours: Microbiology 06/23/18 06:45 Blood Blood Culture - Preliminary NO GROWTH AFTER 48 HOURS 06/23/18 06:45 Blood Blood Culture - Preliminary NO GROWTH AFTER 48 HOURS 06/23/18 06:10 Urine,Clean Catch Urine Culture - Final NO GROWTH AFTER 48 HOURS Assessment and Plan (1) Pancreatitis, acute Current visit: Yes Status: Acute Qualifiers: Pancreatitis type: other Acute pancreatitis complication: no infection or necrosis Qualified Code(s): K85.80 - Other acute pancreatitis without necrosis or infection Category: Medical Code(s): K85.90 - Acute pancreatitis without necrosis or infection, unspecified (2) Cholelithiasis Current visit: Yes Status: Acute Qualifiers: Cholelithiasis location: gallbladder Cholecystitis presence: with cholecystitis Cholecystitis acuity: acute Biliary obstruction: without biliary obstruction Qualified Code(s): K80.00 - Calculus of gallbladder with acute cholecystitis without obstruction Category: Medical Code(s): K80.20 - Calculus of gallbladder without cholecystitis without obstruction (3) Myocardial bridge Current visit: Yes Status: Acute Category: Medical Code(s): Q24.5 - Malformation of coronary vessels (4) Hypertension Current visit: Yes Status: Acute Category: Medical Code(s): I10 - Essential (primary) hypertension The patient's infection will respond to the chosen ABx?: Yes Is the patient receiving the right drug, dose, and route?: Yes Could a more targeted ABx be ordered?: No
--- NOTE | 2018-06-26 11:24 | Progress Note ---
[facility] Anesthesia Checklist - Patient Identification Patient Identification: Arm Band, Verbal (Name & ) - Structural Data Admitted From: Home Planned Operative Procedure/s: lap choly Consent for Planned Operative Procedure(s) Verified: Yes Verified Documents: Surgical Consent, History and Physical - NPO Status Verified Time NPO: 00:00 - Additional verifications Patient : No Anesthesia Reactions: No Hx Blood Transfusions: No Blood Transfusion Reaction: No Cephalosporin Allergy: No Previous Colonoscopy: Yes - Cardiovascular Assessment Heart Sounds: S1 & S2 Pulse Strength: Baseline Pulse Rhythm: Regular Peripheral Edema: No - Airway Assessment C-Spine Mobility Assessed: Yes TMJ Mobility Assessed: Yes Dentition: Good Dentition - Neurological Assessment Level of Consciousness: Awake, Alert, Appropriate Hx Seizures: No Numbness or tingling in extremities: No - Anesthesia Plan Anesthesia Risk discussed: Yes Anesthesia Plan: Verified ASA Class: II Anesthesia Type: General [facility] History I have reviewed the patient's past medical history: Yes Medical History: Reports:: Hypertension Other Surgeries: Yes: Appendectomy, Cardiac Catheterization, Colonoscopy Amputation: No Fractures: No - *Social History Educational Level: Completed High School Smoking Status: Never smoker Alcohol Intake: never Occupational Status: employed - Psychiatric History Expresses thoughts of harming self/others: None Suicide Plan Description: No Plan *Family Hx:: Cancer (Father at age 73 of lung cancer), Heart Attack (Mother at age 50 of a heart attack)
--- NOTE | 2018-06-26 14:20 | Operative Note ---
Date of procedure: 06/26/18 Pre-op Diagnosis:: Biliary pancreatitis Post-op Diagnosis:: Same Procedure performed:: Laparoscopic cholecystectomy with intraoperative cholangiogram Surgeon:: Maximino Heart MD Anesthesia: KAYLA Estimated blood loss (mL): 40 Clinical Note:: Patient is a 63-year-old white male. He has a known history of gallstones. They have been apparently asymptomatic. However, he presented on 06/23/18 acute onset of upper abdominal and lower chest pain. He was seen and evaluated in the emergency department and he was found to have findings of pancreatitis chemically and radiographically. He was admitted for inpatient management and surgical consultation was obtained. Patient underwent gallbladder ultrasound which revealed gallstones with no common duct dilatation. Patient slowly convalesced with medical treatment of his pancreatitis. He had shown improvement clinically and by laboratory evaluation and plan was made for early interval cholecystectomy to eliminate source of pancreatitis and for intraoperative cholangiogram. Operative findings:: Patient had a distended gallbladder. There were numerous gallstones. Operative note:: Consent was obtained and patient was taken to the operating room. He was given preoperative intravenous antibiotics. In the operating room he was placed in a supine position. General anesthesia was induced via endotracheal tube. Abdomen was prepped and draped in the standard surgical fashion. Subumbilical region was made and while performing abdominal wall lift Veress needle was inserted. CO2 pneumoperitoneum was achieved 15 mmHg. 10/11 mm optical trocar was inserted at the umbilicus. Intraperitoneal contents were visualized. He was positioned in reverse down. A couple of 5 mm trochars were inserted in the right upper abdomen. 10 mm trocar was inserted in the epigastrium. For visualization he required use of the 30 10 mm laparoscope. Gallbladder is identified and grasped and retracted anteriorly. There were some omental adhesions to the liver which were taken down using Sixto ultrasonic harmonic ping. The infundibulum/Moser's pouch of the gallbladder was retracted anterolaterally. He actually required use of several different laparoscopes throughout the procedure including the 0 10 mm, 30 10 mm, and 45 10 mm laparoscope for visualization. There was some unavoidable spillage of bile secondary to the gallbladder traction. This was suctioned free and Endoloop was placed on the gallbladder. The cystic duct was isolated. It was clipped proximal to the gallbladder. Through approximately a 2 mm incision in the right upper abdomen cholangiocatheter trocar was inserted. Cholangiocatheter was inserted and through a small incision in the cystic duct the cholangiocatheter was inserted into the cystic duct where it was secured with a Hemoclip. Intraoperative cholangiogram was performed with diluted contrast followed by full-strength contrast. There were no obvious filling defects and it appears as though contrast flowed freely into the duodenum although there were findings suggestive of spasm at the ampulla. The cholangiocatheter was removed. Cystic duct was multiply clipped and then divided. Cystic artery was coagulated with Sixto ultrasonic harmonic ping. There is some minor oozing and Hemoclip was placed. The gallbladder was dissected free from the liver in a retrograde fashion with use of SIXTO ultrasonic harmonic ping as well as electrocautery. There was some unavoidable parenchymal tearing of the liver adjacent to the gallbladder fossa. Laparoscopic electrocautery was used for appropriate hemostasis. Please note that there were some unavoidable spillage of stones during the dissection process as well and these were removed using the stone grasping forceps and by placing within an Endo Catch retrieval device. The gallbladder fossa and perihepatic spaces were thoroughly irrigated with approximately 6 L of warm saline and aspirated until clear. There appeared to be good hemostasis. Trochars were removed as CO2 pneumoperitoneum was evacuated. Fascia at the umbilicus was closed with a few 0 Vicryl sutures. Epigastric trocar site was closed with a 0 Vicryl suture. Local anesthetic was infiltrated. Skin incisions were closed with 4-0 Monocryl in subcuticular fashion. Steri-Strips and dressings were applied. Condition: stable Disposition: PACU Specimens:: Gallbladder and contents Complications:: None immediately apparent
--- NOTE | 2018-06-26 14:28 | Progress Note ---
[facility] Anesthesia Record Part I Intake, IV Amount: 2,000 Estimated blood loss (mL): 10 Urine output (mL): 30 Blood Products used (#): none Blood Pressure: 126/77 SaO2: 92 Pulse Rate: 100 Respiratory Rate: 20 Temperature: 97.5 F Patient is:: Awake, Stable Stable to PACU at:: 14:25
--- NOTE | 2018-06-26 14:29 | Progress Note ---
[facility] Anesthesia Record Part II Discharge Time: 14:55 Destination: Medical Surgical Department PACU nurse assessment reviewed?: Yes Patient Condition:: Good Anesthesia Complications:: None
--- NOTE | 2018-06-27 06:39 | Progress Note ---
Subjective Patient reports: other (resting) Exam Vital signs and Labs for Last 24 Hours: Temp Pulse Resp BP Pulse Ox 98.3 F 88 20 112/66 95 06/27/18 04:00 06/27/18 04:00 06/27/18 04:00 06/27/18 04:00 06/27/18 04:00 I & O for Last 24 hours: Intake & Output 06/24/18 06/25/18 06/26/18 06/27/18 11:59 11:59 11:59 11:59 Intake Total 540 / 540 3339 / 3339 1400 / 1400 3251 / 3251 Output Total 500 / 500 2 / 2 150 / 150 150 / 150 Balance 40 / 40 3337 / 3337 1250 / 1250 3101 / 3101 Weight 290 lb 0.007 oz Microbiology Reports for the Last 24 Hours: Microbiology 06/24/18 17:05 Blood Blood Culture - Preliminary NO GROWTH AFTER 48 HOURS 06/24/18 17:05 Blood Blood Culture - Preliminary NO GROWTH AFTER 48 HOURS - Constitutional no acute distress - *Routine Respiratory Exam Absent: respiratory distress - *Routine Cardiovascular Exam Present: RRR - *Routine Abdominal Exam Present: soft Comments: dressings intact. no erythema. Progress Note: A&P (1) Pancreatitis, acute Status: Acute Assessment and plan: Essentially resolved biochemically as of yesterday and continuing to improve with regard to physical manifestations. Follow-up morning labs Current Visit: Yes (2) Cholelithiasis Status: Acute Assessment and plan: Overall, doing well status post laparoscopic cholecystectomy with cholangiogram. Ambulation Follow-up pending labs Likely advance diet later today Potential discharge home as early as tomorrow if he continues to improve Current Visit: Yes (3) Myocardial bridge Status: Acute Current Visit: Yes (4) Hypertension Status: Acute Current Visit: Yes
[2018-06-27 07:00] LABS: Basophils % 0.1 % (0.1-2.0); Eosinophils % 0.1 % (0.1-12.0); Hematocrit 35.6 % (42.0-52.0); Hemoglobin 11.8 g/dL (14.1-18.0); Lymphocytes # 1.1 K/mm3 (0.7-4.5); Lymphocytes % 9.8 K/mm3 (10-50); Mean Corpuscular HGB Conc 33.1 g/dL (31.8-35.4); Mean Corpuscular Hemoglobin 32.5 pg (27.0-31.2); Mean Corpuscular Volume 98.1 fl (80-94); Mean Platelet Volume 8.2 fl (7.4-10.4); Monocytes # 0.5 K/mm3 (0.1-1.0); Monocytes % 4.8 % (1.7-9.3); Neutrophils # 9.3 K/mm3 (1.8-7.8); Neutrophils % 85.3 % (37.0-80.0); Platelet Count 188 K/mm3 (142-424); Red Blood Count 3.63 M/mm3 (4.60-6.20); Red Cell Distribution Width 13.6 % (11.5-17.5); White Blood Count 10.8 K/mm3 (4.8-10.8)
[2018-06-27 07:16] LABS: Albumin Level 2.3 gm/dL (3.4-5.0); Albumin/Globulin Ratio 0.7 (1.1-1.8); Anion Gap 9.2 mEq/L (5-15); Bilirubin,Total 0.6 mg/dL (0.2-1.0); Globulin 3.5 gm/dl (1.3-3.2); Potassium 4.2 mmoL/L (3.5-5.1); Total Protein,Serum 5.8 gm/dL (6.4-8.2)
--- NOTE | 2018-06-27 08:25 | Progress Note ---
Internal Medicine - PN: Subj *Date: 06/27/18 *Time: 08:23 Interval history: Patient states he is feeling well today. He has been able to eat and has been up moving around the room. He has minimal pain. Exam Vital signs and Labs for Last 24 Hours: Temp Pulse Resp BP Pulse Ox 98.6 F 85 20 119/63 96 06/27/18 08:00 06/27/18 08:00 06/27/18 08:00 06/27/18 08:00 06/27/18 08:00 Laboratory Results - last 24 hr 06/27/18 06:43: WBC 10.8, RBC 3.63 L, Hgb 11.8 L, Hct 35.6 L, MCV 98.1 H, MCH 32 .5 H, MCHC 33.1, RDW 13.6, Plt Count 188, MPV 8.2, Neut % (Auto) 85.3 H, Lymph % (Auto) 9.8 L, [place] % (Auto) 4.8, Eos % (Auto) 0.1, Baso % (Auto) 0.1, Neut # (Auto) 9.3 H, Lymph # (Auto) 1.1, [place] # (Auto) 0.5, Eos # (Auto) 0.0, Baso # (Auto) 0.0 06/27/18 06:43: Sodium 141, Potassium 4.2, Chloride 109 H, Carbon Dioxide 27, Anion Gap 9.2, BUN 12 D, Creatinine 1.00, Estimated Creat Clear 80, Estimated GFR 76, Est GFR ( Amer) 92, Glucose 146 H, Calcium 8.0 L, Total Bilirubin 0.6, AST 40 H D, ALT 70, Alkaline Phosphatase 103, Total Protein 5.8 L, Albumin 2.3 L D, Globulin 3.5 H, Albumin/Globulin Ratio 0.7 L, Amylase 33, Lipase 181 I & O for Last 24 hours: Intake & Output 06/24/18 06/25/18 06/26/18 06/27/18 11:59 11:59 11:59 11:59 Intake Total 540 / 540 3339 / 3339 1400 / 1400 3611 / 3611 Output Total 500 / 500 2 / 2 150 / 150 150 / 150 Balance 40 / 40 3337 / 3337 1250 / 1250 3461 / 3461 Weight 290 lb 0.007 oz Microbiology Reports for the Last 24 Hours: Microbiology 06/24/18 17:05 Blood Blood Culture - Preliminary NO GROWTH AFTER 48 HOURS 06/24/18 17:05 Blood Blood Culture - Preliminary NO GROWTH AFTER 48 HOURS - Constitutional no acute distress - *Routine Respiratory Exam Present: CTA bilaterally - *Routine Cardiovascular Exam Present: RRR - *Routine Abdominal Exam Present: soft, normoactive bowel sounds, tenderness (around surgical wounds) Assessment and Plan (1) Pancreatitis, acute Current visit: Yes Status: Acute Qualifiers: Pancreatitis type: other Acute pancreatitis complication: no infection or necrosis Qualified Code(s): K85.80 - Other acute pancreatitis without necrosis or infection Category: Medical Code(s): K85.90 - Acute pancreatitis without necrosis or infection, unspecified (2) Cholelithiasis Current visit: Yes Status: Acute Qualifiers: Cholelithiasis location: gallbladder Cholecystitis presence: with cholecystitis Cholecystitis acuity: acute Biliary obstruction: without biliary obstruction Qualified Code(s): K80.00 - Calculus of gallbladder with acute cholecystitis without obstruction Category: Medical Code(s): K80.20 - Calculus of gallbladder without cholecystitis without obstruction (3) Myocardial bridge Current visit: Yes Status: Acute Category: Medical Code(s): Q24.5 - Malformation of coronary vessels (4) Hypertension Current visit: Yes Status: Acute Category: Medical Code(s): I10 - Essential (primary) hypertension (5) Status post cholecystectomy Current visit: Yes Status: Acute Category: Surgical Code(s): Z90.49 - Acquired absence of other specified parts of digestive tract - Assessment and plan all Dx Assessment and Plan for all problems:: Surgery note appreciated. Labs are improving. We will continue current care as per surgery.
[2018-06-27 09:36] LABS: Lymphocytes % 15 % (10-50); Monocytes % 3 % (2-9); Neutrophils % 82 % (42-76); RBC Morphology Normal; Total Cells Counted 100
--- NOTE | 2018-06-28 07:05 | Progress Note ---
Subjective Patient reports: feels better Narrative: Patient feeling well. Had some bowel movements and tolerating diet. Some abdominal tenderness when getting up to the bathroom. Exam Vital signs and Labs for Last 24 Hours: Temp Pulse Resp BP Pulse Ox 99.0 F 70 17 132/69 97 06/28/18 04:00 06/28/18 04:00 06/28/18 04:00 06/28/18 04:00 06/28/18 04:00 Laboratory Results - last 24 hr 06/27/18 06:43: WBC 10.8, RBC 3.63 L, Hgb 11.8 L, Hct 35.6 L, MCV 98.1 H, MCH 32.5 H, MCHC 33.1, RDW 13.6, Plt Count 188, MPV 8.2, Neut % (Auto) 85.3 H, Lymph % (Auto) 9.8 L, [place] % (Auto) 4.8, Eos % (Auto) 0.1, Baso % (Auto) 0.1, Neut # (Auto) 9.3 H, Lymph # (Auto) 1.1, [place] # (Auto) 0.5, Eos # (Auto) 0.0, Baso # (Auto) 0.0, Total Counted 100, Neutrophils % (Manual) 82 H, Lymphocytes % (Manual) 15, Monocytes % (Manual) 3, Platelet Estimate Normal, RBC Morphology Normal 06/27/18 06:43: Sodium 141, Potassium 4.2, Chloride 109 H, Carbon Dioxide 27, Anion Gap 9.2, BUN 12 D, Creatinine 1.00, Estimated Creat Clear 80, Estimated GFR 76, Est GFR ( Amer) 92, Glucose 146 H, Calcium 8.0 L, Total Bilirubin 0.6, AST 40 H D, ALT 70, Alkaline Phosphatase 103, Total Protein 5.8 L, Albumin 2.3 L D, Globulin 3.5 H, Albumin/Globulin Ratio 0.7 L, Amylase 33, Lipase 181 I & O for Last 24 hours: Intake & Output 06/25/18 06/26/18 06/27/18 06/28/18 11:59 11:59 11:59 11:59 Intake Total 3339 / 3339 1400 / 1400 3811 / 3811 3403 / 3403 Output Total 2 / 2 150 / 150 150 / 150 Balance 3337 / 3337 1250 / 1250 3661 / 3661 3403 / 3403 Weight 290 lb 0.007 oz 295 lb 2 oz Microbiology Reports for the Last 24 Hours: Microbiology 06/23/18 06:45 Blood Blood Culture - Final NO GROWTH AFTER 5 DAYS 06/23/18 06:45 Blood Blood Culture - Final NO GROWTH AFTER 5 DAYS - Constitutional no acute distress - *Routine Abdominal Exam Present: soft Comments: Dressings/steri-strips clean and intact. Progress Note: A&P (1) Pancreatitis, acute Status: Acute Current Visit: Yes (2) Cholelithiasis Status: Acute Current Visit: Yes (3) Myocardial bridge Status: Acute Current Visit: Yes (4) Hypertension Status: Acute Current Visit: Yes (5) Status post cholecystectomy Status: Acute Current Visit: Yes Assessment and Plan for All Diagnoses:: Recheck labs today. If continuing to show normalization/improvement should be able to discharge today. Plan to stay on low fat diet. Likely will need to be off work for 4 weeks given the nature of his work.
[2018-06-28 08:22] LABS: Basophils % 0.3 % (0.1-2.0); Eosinophils # 0.2 K/mm3 (0.0-0.4); Eosinophils % 1.5 % (0.1-12.0); Hematocrit 38.1 % (42.0-52.0); Hemoglobin 12.5 g/dL (14.1-18.0); Lymphocytes # 1.3 K/mm3 (0.7-4.5); Lymphocytes % 11.7 K/mm3 (10-50); Mean Corpuscular HGB Conc 32.7 g/dL (31.8-35.4); Mean Corpuscular Hemoglobin 32.1 pg (27.0-31.2); Mean Platelet Volume 7.8 fl (7.4-10.4); Monocytes # 0.9 K/mm3 (0.1-1.0); Neutrophils # 8.8 K/mm3 (1.8-7.8); Neutrophils % 78.5 % (37.0-80.0); Platelet Count 232 K/mm3 (142-424); Red Blood Count 3.89 M/mm3 (4.60-6.20); Red Cell Distribution Width 13.7 % (11.5-17.5); White Blood Count 11.2 K/mm3 (4.8-10.8)
--- NOTE | 2018-06-28 08:32 | Progress Note ---
<Rosa Maria More - Last Filed: 06/28/18 08:31> Internal Medicine - PN: Subj *Date: 06/28/18 *Time: 08:31 Interval history: Patient states he is feeling about the same this morning. He did have to have some pain medication after getting up to go to the bathroom. He is tolerating a diet and rested off and on throughout the night. He is anxious to go home. Exam Vital signs and Labs for Last 24 Hours: Temp Pulse Resp BP Pulse Ox 99.0 F 70 17 132/69 97 06/28/18 04:00 06/28/18 04:00 06/28/18 04:00 06/28/18 04:00 06/28/18 04:00 Laboratory Results - last 24 hr 06/27/18 06:43: Total Counted 100, Neutrophils % (Manual) 82 H, Lymphocytes % (Manual) 15, Monocytes % (Manual) 3, Platelet Estimate Normal, RBC Morphology Normal 06/28/18 07:12: WBC 11.2 H, RBC 3.89 L, Hgb 12.5 L, Hct 38.1 L, MCV 98.0 H, MCH 32.1 H, MCHC 32.7, RDW 13.7, Plt Count 232, MPV 7.8, Neut % (Auto) 78.5, Lymph % (Auto) 11.7, [place] % (Auto) 8.0, Eos % (Auto) 1.5, Baso % (Auto) 0.3, Neut # (Auto) 8.8 H, Lymph # (Auto) 1.3, [place] # (Auto) 0.9, Eos # (Auto) 0.2, Baso # (Auto) 0.0 I & O for Last 24 hours: Intake & Output 06/25/18 06/26/18 06/27/18 06/28/18 11:59 11:59 11:59 11:59 Intake Total 3339 / 3339 1400 / 1400 3811 / 3811 3763 / 3763 Output Total 2 / 2 150 / 150 150 / 150 Balance 3337 / 3337 1250 / 1250 3661 / 3661 3763 / 3763 Weight 290 lb 0.007 oz 295 lb 2 oz Microbiology Reports for the Last 24 Hours: Microbiology 06/23/18 06:45 Blood Blood Culture - Final NO GROWTH AFTER 5 DAYS 06/23/18 06:45 Blood Blood Culture - Final NO GROWTH AFTER 5 DAYS - Constitutional no acute distress - *Routine Respiratory Exam Present: CTA bilaterally - *Routine Cardiovascular Exam Present: RRR - *Routine Abdominal Exam Present: soft, normoactive bowel sounds, tenderness (around surgical sites) - *Routine Extremities Exam Absent: edema Assessment and Plan (1) Pancreatitis, acute Current visit: Yes Status: Acute Qualifiers: Pancreatitis type: other Acute pancreatitis complication: no infection or necrosis Qualified Code(s): K85.80 - Other acute pancreatitis without necrosis or infection Category: Medical Code(s): K85.90 - Acute pancreatitis without necrosis or infection, unspecified (2) Cholelithiasis Current visit: Yes Status: Acute Qualifiers: Cholelithiasis location: gallbladder Cholecystitis presence: with cholecystitis Cholecystitis acuity: acute Biliary obstruction: without biliary obstruction Qualified Code(s): K80.00 - Calculus of gallbladder with acute cholecystitis without obstruction Category: Medical Code(s): K80.20 - Calculus of gallbladder without cholecystitis without obstruction (3) Myocardial bridge Current visit: Yes Status: Acute Category: Medical Code(s): Q24.5 - Malformation of coronary vessels (4) Hypertension Current visit: Yes Status: Acute Category: Medical Code(s): I10 - Essential (primary) hypertension (5) Status post cholecystectomy Current visit: Yes Status: Acute Category: Surgical Code(s): Z90.49 - Acquired absence of other specified parts of digestive tract - Assessment and plan all Dx Assessment and Plan for all problems:: Awaiting lab results this morning. If they are normal patient can be discharged. <Etienne Salomon - Last Filed: 06/28/18 08:55> Exam Vital signs and Labs for Last 24 Hours: Temp Pulse Resp BP Pulse Ox 98.4 F 95 H 16 113/57 97 06/28/18 08:00 06/28/18 08:00 06/28/18 08:00 06/28/18 08:00 06/28/18 04:00 Laboratory Results - last 24 hr 06/27/18 06:43: Total Counted 100, Neutrophils % (Manual) 82 H, Lymphocytes % (Manual) 15, Monocytes % (Manual) 3, Platelet Estimate Normal, RBC Morphology Normal 06/28/18 07:12: WBC 11.2 H, RBC 3.89 L, Hgb 12.5 L, Hct 38.1 L, MCV 98.0 H, MCH 32.1 H, MCHC 32.7, RDW 13.7, Plt Count 232, MPV 7.8, Neut % (Auto) 78.5, Lymph % (Auto) 11.7, [place] % (Auto) 8.0, Eos % (Auto) 1.5, Baso % (Auto) 0.3, Neut # (Auto) 8.8 H, Lymph # (Auto) 1.3, [place] # (Auto) 0.9, Eos # (Auto) 0.2, Baso # (Auto) 0.0 06/28/18 07:12: Sodium 140, Potassium 3.9, Chloride 107, Carbon Dioxide 25, Anion Gap 11.9, BUN 15, Creatinine 1.15, Estimated Creat Clear 70, Estimated GFR 65, Est GFR ( Amer) 78, Glucose 163 H, Calcium 7.9 L, Total Bilirubin 0.5, AST 32, ALT 66, Alkaline Phosphatase 111, Total Protein 6.0 L, Albumin 2.4 L, Globulin 3.6 H, Albumin/Globulin Ratio 0.7 L, Amylase 83 I & O for Last 24 hours: Intake & Output 06/25/18 06/26/18 06/27/18 06/28/18 11:59 11:59 11:59 11:59 Intake Total 3339 / 3339 1400 / 1400 3811 / 3811 3763 / 3763 Output Total 2 / 2 150 / 150 150 / 150 Balance 3337 / 3337 1250 / 1250 3661 / 3661 3763 / 3763 Weight 290 lb 0.007 oz 295 lb 2 oz Microbiology Reports for the Last 24 Hours: Microbiology 06/23/18 06:45 Blood Blood Culture - Final NO GROWTH AFTER 5 DAYS 06/23/18 06:45 Blood Blood Culture - Final NO GROWTH AFTER 5 DAYS Assessment and Plan (1) Pancreatitis, acute Current visit: Yes Status: Acute Qualifiers: Pancreatitis type: other Acute pancreatitis complication: no infection or necrosis Qualified Code(s): K85.80 - Other acute pancreatitis without necrosis or infection Category: Medical Code(s): K85.90 - Acute pancreatitis without necrosis or infection, unspecified (2) Cholelithiasis Current visit: Yes Status: Acute Qualifiers: Cholelithiasis location: gallbladder Cholecystitis presence: with cholecystitis Cholecystitis acuity: acute Biliary obstruction: without biliary obstruction Qualified Code(s): K80.00 - Calculus of gallbladder with acute cholecystitis without obstruction Category: Medical Code(s): K80.20 - Calculus of gallbladder without cholecystitis without obstruction (3) Myocardial bridge Current visit: Yes Status: Acute Category: Medical Code(s): Q24.5 - Malformation of coronary vessels (4) Hypertension Current visit: Yes Status: Acute Category: Medical Code(s): I10 - Essential (primary) hypertension (5) Status post cholecystectomy Current visit: Yes Status: Acute Category: Surgical Code(s): Z90.49 - Acquired absence of other specified parts of digestive tract - Assessment and plan all Dx Assessment and Plan for all problems:: Saw patient, agree with above note. Lipase is pending, change to oral pain meds now, probable discharge later today
[2018-06-28 08:38] LABS: Albumin Level 2.4 gm/dL (3.4-5.0); Albumin/Globulin Ratio 0.7 (1.1-1.8); Anion Gap 11.9 mEq/L (5-15); Bilirubin,Total 0.5 mg/dL (0.2-1.0); Calcium 7.9 mg/dL (8.5-10.1); Globulin 3.6 gm/dl (1.3-3.2); Potassium 3.9 mmoL/L (3.5-5.1)
--- NOTE | 2018-06-28 13:24 | Procedure Note ---
[facility] Procedure Note Procedure Note:: Gastroenterology Consultation Date of Service-June 28, 2018 History of Present Illness: Mr. Spencer is a 53-year-old gentleman who presented with gallstone pancreatitis. The patient bilirubin increased to 2.0. The patient did have cholecystectomy today for symptomatic gallstones. He had an intraoperative cholangiogram that showed dye into the duodenum. There was some retrograde flow of dye into the pancreas there was no filling defect within the biliary system. The patient has improvement of liver acuities today. He feels better. Exam abdomen: Soft mild distention postsurgical laparoscopic incision site noted. No rebound or guarding Impression/Plan:1. Gallstone pancreatitis with symptomatic cholelithiasis post laparoscopic cholecystectomy. The intraoperative cholangiogram did not show choledocholithiasis. Based on the fact that there was some retrograde flow of contrast into the pancreas, I do feel that this some functional sphincter of Oddi spasm which may be related to the stone that passed. Certainly has any recurrent pancreatitis, I would consider ERCP but I would not recommend ERCP at this time based upon the intraoperative cholangiogram. The patient's liver chemistries are improving and he is clinically improved.
[2018-06-28 14:11] LABS: Amylase 91 U/L (25-125)
[2018-06-28 14:20] LABS: Lipase 931 u/L (73-393)
[2018-06-29 06:49] LABS: Basophils % 0.2 % (0.1-2.0); Eosinophils # 0.3 K/mm3 (0.0-0.4); Eosinophils % 2.6 % (0.1-12.0); Hematocrit 38.9 % (42.0-52.0); Hemoglobin 12.5 g/dL (14.1-18.0); Lymphocytes # 1.4 K/mm3 (0.7-4.5); Lymphocytes % 13.6 K/mm3 (10-50); Mean Corpuscular HGB Conc 32.2 g/dL (31.8-35.4); Mean Corpuscular Hemoglobin 31.4 pg (27.0-31.2); Mean Corpuscular Volume 97.6 fl (80-94); Mean Platelet Volume 7.5 fl (7.4-10.4); Monocytes # 1.1 K/mm3 (0.1-1.0); Monocytes % 10.8 % (1.7-9.3); Neutrophils # 7.4 K/mm3 (1.8-7.8); Neutrophils % 72.7 % (37.0-80.0); Platelet Count 236 K/mm3 (142-424); Red Blood Count 3.99 M/mm3 (4.60-6.20); Red Cell Distribution Width 13.5 % (11.5-17.5); White Blood Count 10.2 K/mm3 (4.8-10.8)
[2018-06-29 07:00] LABS: Albumin Level 2.4 gm/dL (3.4-5.0); Albumin/Globulin Ratio 0.6 (1.1-1.8); Anion Gap 12.1 mEq/L (5-15); Bilirubin,Total 0.6 mg/dL (0.2-1.0); Calcium 8.2 mg/dL (8.5-10.1); Globulin 3.7 gm/dl (1.3-3.2); Potassium 4.1 mmoL/L (3.5-5.1); Total Protein,Serum 6.1 gm/dL (6.4-8.2)
--- NOTE | 2018-06-29 08:15 | Progress Note ---
<Rosa Maria More - Last Filed: 06/29/18 08:13> Internal Medicine - PN: Subj *Date: 06/29/18 *Time: 08:13 Interval history: The patient states he is feeling "okay" this a.m. He developed a rash on his back and thinks he may be allergic to the detergent used to wash the sheets. He received Phenergan and Benadryl last night due to the itching and was able to sleep well. He has not eaten as much today as he did yesterday. His pain is about the same as it was yesterday. Exam Vital signs and Labs for Last 24 Hours: Temp Pulse Resp BP Pulse Ox 99.3 F 87 18 119/68 95 06/29/18 07:23 06/29/18 07:23 06/29/18 07:23 06/29/18 07:23 06/29/18 07:23 Laboratory Results - last 24 hr 06/28/18 07:12: WBC 11.2 H, RBC 3.89 L, Hgb 12.5 L, Hct 38.1 L, MCV 98.0 H, MCH 32.1 H, MCHC 32.7, RDW 13.7, Plt Count 232, MPV 7.8, Neut % (Auto) 78.5, Lymph % (Auto) 11.7, [place] % (Auto) 8.0, Eos % (Auto) 1.5, Baso % (Auto) 0.3, Neut # (Auto) 8.8 H, Lymph # (Auto) 1.3, [place] # (Auto) 0.9, Eos # (Auto) 0.2, Baso # (Auto) 0.0 06/28/18 07:12: Sodium 140, Potassium 3.9, Chloride 107, Carbon Dioxide 25, Anion Gap 11.9, BUN 15, Creatinine 1.15, Estimated Creat Clear 70, Estimated GFR 65, Est GFR ( Amer) 78, Glucose 163 H, Calcium 7.9 L, Total Bilirubin 0.5, AST 32, ALT 66, Alkaline Phosphatase 111, Total Protein 6.0 L, Albumin 2.4 L, Globulin 3.6 H, Albumin/Globulin Ratio 0.7 L, Amylase 83 06/28/18 07:12: Lactate 1.2 06/28/18 07:12: Lipase 824 H 06/28/18 13:53: Amylase 91, Lipase 931 H 06/29/18 06:40: WBC 10.2, RBC 3.99 L, Hgb 12.5 L, Hct 38.9 L, MCV 97.6 H, MCH 31.4 H, MCHC 32.2, RDW 13.5, Plt Count 236, MPV 7.5, Neut % (Auto) 72.7, Lymph % (Auto) 13.6, [place] % (Auto) 10.8 H, Eos % (Auto) 2.6, Baso % (Auto) 0.2, Neut # (Auto) 7.4, Lymph # (Auto) 1.4, [place] # (Auto) 1.1 H, Eos # (Auto) 0.3, Baso # (Auto) 0.0 06/29/18 06:40: Sodium 140, Potassium 4.1, Chloride 106, Carbon Dioxide 26, Anion Gap 12.1, BUN 10 D, Creatinine 1.08, Estimated Creat Clear 74, Estimated GFR 70, Est GFR ( Amer) 84, Glucose 127 H D, Calcium 8.2 L, Total Bilirubin 0.6, AST 30, ALT 64, Alkaline Phosphatase 121 H, Total Protein 6.1 L, Albumin 2.4 L, Globulin 3.7 H, Albumin/Globulin Ratio 0.6 L, Amylase 105 D, Lipase 1087 H I & O for Last 24 hours: Intake & Output 06/26/18 06/27/18 06/28/18 06/29/18 11:59 11:59 11:59 11:59 Intake Total 1400 / 1400 3961 / 3961 3813 / 3813 980 / 980 Output Total 150 / 150 150 / 150 Balance 1250 / 1250 3811 / 3811 3813 / 3813 980 / 980 Weight 295 lb 2 oz Microbiology Reports for the Last 24 Hours: Microbiology 06/23/18 06:45 Blood Blood Culture - Final NO GROWTH AFTER 5 DAYS 06/23/18 06:45 Blood Blood Culture - Final NO GROWTH AFTER 5 DAYS - Constitutional no acute distress - *Routine Respiratory Exam Present: CTA bilaterally - *Routine Cardiovascular Exam Present: RRR - *Routine Abdominal Exam Present: soft, normoactive bowel sounds, tenderness (around incision sites) - *Routine Extremities Exam Absent: edema Assessment and Plan (1) Pancreatitis, acute Current visit: Yes Status: Acute Qualifiers: Pancreatitis type: other Acute pancreatitis complication: no infection or necrosis Qualified Code(s): K85.80 - Other acute pancreatitis without necrosis or infection Category: Medical Code(s): K85.90 - Acute pancreatitis without necrosis or infection, unspecified (2) Cholelithiasis Current visit: Yes Status: Acute Qualifiers: Cholelithiasis location: gallbladder Cholecystitis presence: with cholecystitis Cholecystitis acuity: acute Biliary obstruction: without biliary obstruction Qualified Code(s): K80.00 - Calculus of gallbladder with acute cholecystitis without obstruction Category: Medical Code(s): K80.20 - Calculus of gallbladder without cholecystitis without obstruction (3) Myocardial bridge Current visit: Yes Status: Acute Category: Medical Code(s): Q24.5 - Malformation of coronary vessels (4) Hypertension Current visit: Yes Status: Acute Category: Medical Code(s): I10 - Essential (primary) hypertension (5) Status post cholecystectomy Current visit: Yes Status: Acute Category: Surgical Code(s): Z90.49 - Acquired absence of other specified parts of digestive tract - Assessment and plan all Dx Assessment and Plan for all problems:: Patient's lipase is even higher today. Will discuss further care with surgery and with Dr. Salomon. Will remove patient's heart monitor as it is rubbing against his surgical scars. <Etienne Salomon - Last Filed: 06/29/18 08:48> Exam Vital signs and Labs for Last 24 Hours: Temp Pulse Resp BP Pulse Ox 99.3 F 87 18 119/68 95 06/29/18 07:23 06/29/18 07:23 06/29/18 07:23 06/29/18 07:23 06/29/18 07:23 Laboratory Results - last 24 hr 06/28/18 07:12: Lactate 1.2 06/28/18 07:12: Lipase 824 H 06/28/18 13:53: Amylase 91, Lipase 931 H 06/29/18 06:40: WBC 10.2, RBC 3.99 L, Hgb 12.5 L, Hct 38.9 L, MCV 97.6 H, MCH 31.4 H, MCHC 32.2, RDW 13.5, Plt Count 236, MPV 7.5, Neut % (Auto) 72.7, Lymph % (Auto) 13.6, [place] % (Auto) 10.8 H, Eos % (Auto) 2.6, Baso % (Auto) 0.2, Neut # (Auto) 7.4, Lymph # (Auto) 1.4, [place] # (Auto) 1.1 H, Eos # (Auto) 0.3, Baso # (Auto) 0.0 06/29/18 06:40: Sodium 140, Potassium 4.1, Chloride 106, Carbon Dioxide 26, Anion Gap 12.1, BUN 10 D, Creatinine 1.08, Estimated Creat Clear 74, Estimated GFR 70, Est GFR ( Amer) 84, Glucose 127 H D, Calcium 8.2 L, Total Bilirubin 0.6, AST 30, ALT 64, Alkaline Phosphatase 121 H, Total Protein 6.1 L, Albumin 2.4 L, Globulin 3.7 H, Albumin/Globulin Ratio 0.6 L, Amylase 105 D, Lipase 1087 H I & O for Last 24 hours: Intake & Output 06/26/18 06/27/18 06/28/18 06/29/18 11:59 11:59 11:59 11:59 Intake Total 1400 / 1400 3961 / 3961 3813 / 3813 980 / 980 Output Total 150 / 150 150 / 150 Balance 1250 / 1250 3811 / 3811 3813 / 3813 980 / 980 Weight 295 lb 2 oz Microbiology Reports for the Last 24 Hours: Microbiology 06/23/18 06:45 Blood Blood Culture - Final NO GROWTH AFTER 5 DAYS 06/23/18 06:45 Blood Blood Culture - Final NO GROWTH AFTER 5 DAYS Assessment and Plan (1) Pancreatitis, acute Current visit: Yes Status: Acute Qualifiers: Pancreatitis type: other Acute pancreatitis complication: no infection or necrosis Qualified Code(s): K85.80 - Other acute pancreatitis without necrosis or infection Category: Medical Code(s): K85.90 - Acute pancreatitis without necrosis or infection, unspecified (2) Cholelithiasis Current visit: Yes Status: Acute Qualifiers: Cholelithiasis location: gallbladder Cholecystitis presence: with cholecystitis Cholecystitis acuity: acute Biliary obstruction: without biliary obstruction Qualified Code(s): K80.00 - Calculus of gallbladder with acute cholecystitis without obstruction Category: Medical Code(s): K80.20 - Calculus of gallbladder without cholecystitis without obstruction (3) Myocardial bridge Current visit: Yes Status: Acute Category: Medical Code(s): Q24.5 - Malformation of coronary vessels (4) Hypertension Current visit: Yes Status: Acute Category: Medical Code(s): I10 - Essential (primary) hypertension (5) Status post cholecystectomy Current visit: Yes Status: Acute Category: Surgical Code(s): Z90.49 - Acquired absence of other specified parts of digestive tract - Assessment and plan all Dx Assessment and Plan for all problems:: Saw patient, agree with above note, case discussed with Dr. Cox yesterday and Dr. Spaulding this morning. Plan for discharge later today with office f/u in a couple of days.
--- NOTE | 2018-06-29 08:49 | Progress Note ---
Subjective Patient reports: no new complaints Exam Vital signs and Labs for Last 24 Hours: Temp Pulse Resp BP Pulse Ox 99.3 F 87 18 119/68 95 06/29/18 07:23 06/29/18 07:23 06/29/18 07:23 06/29/18 07:23 06/29/18 07:23 Laboratory Results - last 24 hr 06/28/18 07:12: Lactate 1.2 06/28/18 07:12: Lipase 824 H 06/28/18 13:53: Amylase 91, Lipase 931 H 06/29/18 06:40: WBC 10.2, RBC 3.99 L, Hgb 12.5 L, Hct 38.9 L, MCV 97.6 H, MCH 31.4 H, MCHC 32.2, RDW 13.5, Plt Count 236, MPV 7.5, Neut % (Auto) 72.7, Lymph % (Auto) 13.6, [place] % (Auto) 10.8 H, Eos % (Auto) 2.6, Baso % (Auto) 0.2, Neut # (Auto) 7.4, Lymph # (Auto) 1.4, [place] # (Auto) 1.1 H, Eos # (Auto) 0.3, Baso # (Auto) 0.0 06/29/18 06:40: Sodium 140, Potassium 4.1, Chloride 106, Carbon Dioxide 26, Anion Gap 12.1, BUN 10 D, Creatinine 1.08, Estimated Creat Clear 74, Estimated GFR 70, Est GFR ( Amer) 84, Glucose 127 H D, Calcium 8.2 L, Total Bilirubin 0.6, AST 30, ALT 64, Alkaline Phosphatase 121 H, Total Protein 6.1 L, Albumin 2.4 L, Globulin 3.7 H, Albumin/Globulin Ratio 0.6 L, Amylase 105 D, Lipase 1087 H I & O for Last 24 hours: Intake & Output 06/26/18 06/27/18 06/28/18 06/29/18 11:59 11:59 11:59 11:59 Intake Total 1400 / 1400 3961 / 3961 3813 / 3813 980 / 980 Output Total 150 / 150 150 / 150 Balance 1250 / 1250 3811 / 3811 3813 / 3813 980 / 980 Weight 295 lb 2 oz Microbiology Reports for the Last 24 Hours: Microbiology 06/23/18 06:45 Blood Blood Culture - Final NO GROWTH AFTER 5 DAYS 06/23/18 06:45 Blood Blood Culture - Final NO GROWTH AFTER 5 DAYS - Constitutional no acute distress - *Routine Abdominal Exam Present: soft Comments: incisions c/d/i Progress Note: A&P (1) Pancreatitis, acute Status: Acute Assessment and plan: Overall, doing well status post cholecystectomy with cholangiogram. The patient has likely developed a degree of "cholangiogram pancreatitis". His pain has improved and he is stable for discharge with very close outpatient follow-up. Current Visit: Yes (2) Cholelithiasis Status: Acute Current Visit: Yes (3) Myocardial bridge Status: Acute Current Visit: Yes (4) Hypertension Status: Acute Current Visit: Yes (5) Status post cholecystectomy Status: Acute Current Visit: Yes
--- NOTE | 2018-07-01 15:32 | Discharge Summary ---
General - General Admission date:: 06/23/18 Discharge date: 06/29/18 HPI HPI: This 63-year-old white male admitted in the emergency room early this morning with abdominal pain nausea and vomiting. He states that his pain started about 2 AM. Prior to that he had felt well through the day. Patient has known cholelithiasis which was documented in 2015. Dr. Spaulding consulted on him at that time. In the emergency room his amylase and lipase were markedly elevated. He was admitted with the impression of cholelithiasis and pancreatitis. This was confirmed on CT scan prior to admission. Significant in the patient's picture is some coronary artery disease. 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 He has been followed for this by Dr. Hernandez. Also significant in the past history is a DVT and pulmonary embolism in 2004. Hospital Course Hospital Course: Dr. Heart was consulted and the patient was started on abx and pain medication. He was continued on bowel rest, IVF's, and IV abx. A RUQ U/S was ordered. It showed a distended GB with cholelithiasis. The patient's pancreatic enzymes improved and he was stable to have a cholecystectomy with cholangiogram. The intraoperative cholangiogram did not show choledocholithiasis. The patient was started on a diet. He was seen by Dr. Cox as well. He felt based on the fact that there was some retrograde flow of contrast into the pancreas, there may be some functional sphincter of Oddi spasm which may be related to the stone that passed. If the patient has any recurrent pancreatitis, he would consider ERCP but did not recommend ERCP at the time of consult based upon the intraoperative cholangiogram. The patient's liver chemistries improved. His pain improved. He tolerated a diet. His lipase had normalized but then increased after the surgery. Dr. Spaulding felt he may have some degree of "cholangiogram pancreatitis". He was stable for discharge with very close outpatient follow-up and will likely need to be off work for 4 weeks given the nature of his work. Objective Vital signs: Temp Pulse Resp BP Pulse Ox 98.6 F 85 16 116/48 93 L 06/29/18 11:43 06/29/18 11:43 06/29/18 11:43 06/29/18 11:43 06/29/18 11:43 Narrative: - Constitutional moderate distress - *Routine HEENT Exam Head: Present: normocephalic Eye: Present: PERRL ENT: Present: mucous membranes dry - *Routine Neck Exam Present: supple. Absent: lymphadenopathy - Routine Chest/Breast/Axilla Exam Chest wall: Absent: tenderness - *Routine Respiratory Exam Present: CTA bilaterally - *Routine Cardiovascular Exam Present: tachycardia Comments: Sinus tachycardia 120 - *Routine Abdominal Exam Comments: Obese. Tenderness in the epigastric region. No masses or organomegaly - *Routine Rectal Exam Comments: Not performed - *Routine Extremities Exam Present: edema Comments: 1+ edema - *Routine Neurological Exam Present: alert, oriented X3 Uncomfortable due to pain. DS: Diagnosis - Discharge Diagnosis (1) Pancreatitis, acute Status: Acute (2) Cholelithiasis Status: Acute (3) Myocardial bridge Status: Acute (4) Hypertension Status: Acute (5) Status post cholecystectomy Status: Acute Discharge Plan - Patient Discharge Instructions ACTIVITY: Continue current activity DIET: continue same diet Patient Instructions: Fat-Restricted Diet, Surgical Site Infection - Follow up Plan Follow up with: Etienne Salomon MD [Staff Physician] - 07/02/18 Maximino Heart MD [Staff Physician] - 1 week Disposition: Home, Self-Skilled Nursing Medications: Home Medications Medication Instructions Recorded Confirmed Type aspirin 81 mg tablet,delayed 81 mg PO DAILY tab 03/27/18 06/23/18 History release bisoprolol fumarate 5 mg tablet 5 mg PO HS tab 03/27/18 06/23/18 History celecoxib 200 mg capsule 200 mg PO DAILY cap 03/27/18 06/23/18 History furosemide 20 mg tablet 20 mg PO DAILY tab 03/27/18 06/23/18 History gabapentin 100 mg capsule 100 mg PO BID 03/27/18 06/23/18 History omeprazole 40 mg capsule,delayed 40 mg PO DAILY PRN cap 03/27/18 06/23/18 History release Prescriptions/Medication Reconciliation: New Promethazine HCl [Phenergan 12.5mg tablet] 12.5 mg PO Q6HP PRN #20 tab PRN Reason: Nausea And Vomiting Hydrocodone/Acetaminophen [[place] 7.5-325 Tablet] 1 tab PO Q6HP PRN #12 tab PRN Reason: Moderate To Severe Pain
== END 2018-06-29 13:07 | disposition home or self-care (01) ==
LOC: ER 05:03 → 2ND 05:03 → OBSVTOIN 07:29 → 2ND 07:34
PROVIDERS: ADMIT Family Medicine; ATTEND Family Medicine

== ENCOUNTER → 2018-07-02 10:37 | Outpatient (CLI) | payer BC, SELFPAY ==
[2018-07-02 13:42] LABS: Alanine Aminotransferase 73 U/L (12-78); Albumin Level 3.1 gm/dL (3.4-5.0); Albumin/Globulin Ratio 0.8 (1.1-1.8); Alkaline Phosphatase 162 U/L (46-116); Amylase 178 U/L (25-125); Anion Gap 14.1 mEq/L (5-15); Aspartate Amino Transferase 39 U/L (15-37); Bilirubin,Total 0.5 mg/dL (0.2-1.0); Blood Urea Nitrogen 17 mg/dL (7-18); Carbon Dioxide 28 mmol/L (21.0-32.0); Chloride 102 mmol/L (98-107); Creatinine,Serum 1.38 mg/dL (0.70-1.30); Estimated Glomerular Filt Rate 52 ml/min (>60); GFR (African American) 63 ML/MIN (>60); Globulin 4.1 gm/dl (1.3-3.2); Glucose 136 mg/dL (74-106); Lipase 2008 u/L (73-393); Potassium 5.1 mmoL/L (3.5-5.1); Sodium 139 mmol/L (136-145); Total Protein,Serum 7.2 gm/dL (6.4-8.2)
== END ==
PROVIDERS: PCP Family Medicine; Visit Provider Family Medicine
DX: K85.90 Acute pancreatitis without necrosis or infection, unspecified (principal)
CPT/HCPCS: 36415; 80053; 82150; 83690

== ENCOUNTER → 2018-07-15 10:13 | Outpatient (CLI) | payer BC, SELFPAY ==
[2018-07-15 11:35] LABS: Alanine Aminotransferase 31 U/L (12-78); Albumin Level 3.2 gm/dL (3.4-5.0); Albumin/Globulin Ratio 0.8 (1.1-1.8); Alkaline Phosphatase 126 U/L (46-116); Anion Gap 11.8 mEq/L (5-15); Aspartate Amino Transferase 21 U/L (15-37); Bilirubin,Total 0.6 mg/dL (0.2-1.0); Blood Urea Nitrogen 14 mg/dL (7-18); Calcium 8.8 mg/dL (8.5-10.1); Carbon Dioxide 27 mmol/L (21.0-32.0); Chloride 108 mmol/L (98-107); Creatinine,Serum 1.34 mg/dL (0.70-1.30); Estimated Glomerular Filt Rate 54 ml/min (>60); GFR (African American) 66 ML/MIN (>60); Globulin 3.9 gm/dl (1.3-3.2); Glucose 106 mg/dL (74-106); Potassium 4.8 mmoL/L (3.5-5.1); Sodium 142 mmol/L (136-145); Total Protein,Serum 7.1 gm/dL (6.4-8.2)
== END ==
PROVIDERS: PCP Family Medicine; Visit Provider Surgery
DX: Z01.818 Encounter for other preprocedural examination (principal); K80.20 Calculus of gallbladder without cholecystitis without obstruction
CPT/HCPCS: 36415; 80053

== ENCOUNTER → 2018-07-23 12:31 | Outpatient (CLI) | payer BC, SELFPAY ==
[2018-07-23 13:13] LABS: Amylase 52 U/L (25-125); Lipase 439 u/L (73-393)
== END ==
PROVIDERS: PCP Family Medicine; Visit Provider Surgery
DX: K85.90 Acute pancreatitis without necrosis or infection, unspecified (principal)
CPT/HCPCS: 36415; 82150; 83690

== ENCOUNTER → 2018-08-10 09:16 | Outpatient (CLI) | payer BC, SELFPAY ==
[2018-08-10 09:35] LABS: Basophils % 0.3 % (0.1-2.0); Eosinophils # 0.4 K/mm3 (0.0-0.4); Eosinophils % 5.7 % (0.1-12.0); Hematocrit 44.4 % (42.0-52.0); Hemoglobin 13.9 g/dL (14.1-18.0); Lymphocytes # 2.4 K/mm3 (0.7-4.5); Lymphocytes % 36.9 K/mm3 (10-50); Mean Corpuscular HGB Conc 31.3 g/dL (31.8-35.4); Mean Corpuscular Hemoglobin 31.5 pg (27.0-31.2); Mean Corpuscular Volume 100.5 fl (80-94); Mean Platelet Volume 7.7 fl (7.4-10.4); Monocytes # 0.3 K/mm3 (0.1-1.0); Monocytes % 4.6 % (1.7-9.3); Neutrophils # 3.4 K/mm3 (1.8-7.8); Neutrophils % 52.5 % (37.0-80.0); Platelet Count 185 K/mm3 (142-424); Red Blood Count 4.42 M/mm3 (4.60-6.20); Red Cell Distribution Width 14.6 % (11.5-17.5); White Blood Count 6.6 K/mm3 (4.8-10.8)
[2018-08-10 12:55] LABS: Alanine Aminotransferase 26 U/L (12-78); Albumin Level 3.5 gm/dL (3.4-5.0); Alkaline Phosphatase 118 U/L (46-116); Amylase 38 U/L (25-125); Anion Gap 11.6 mEq/L (5-15); Aspartate Amino Transferase 19 U/L (15-37); Bilirubin,Total 0.5 mg/dL (0.2-1.0); Blood Urea Nitrogen 14 mg/dL (7-18); Calcium 8.8 mg/dL (8.5-10.1); Carbon Dioxide 28 mmol/L (21.0-32.0); Chloride 106 mmol/L (98-107); Creatinine,Serum 1.21 mg/dL (0.70-1.30); Estimated Glomerular Filt Rate 61 ml/min (>60); GFR (African American) 74 ML/MIN (>60); Globulin 3.5 gm/dl (1.3-3.2); Glucose 109 mg/dL (74-106); Lipase 259 u/L (73-393); Potassium 4.6 mmoL/L (3.5-5.1); Sodium 141 mmol/L (136-145)
== END ==
PROVIDERS: Visit Provider Nurse Practitioner Acute Care
DX: R10.11 Right upper quadrant pain (principal); R13.0 Aphagia
CPT/HCPCS: 36415; 80053; 82150; 83690; 85025

== ENCOUNTER → 2018-08-14 12:33 | Outpatient (CLI) | payer BC, SELFPAY ==
--- NOTE | 2018-08-14 | NVE_ITS ---
Venous Exam Indications: 729.81 Swelling of limb. 729.5 Pain in limb. IMPRESSIONS 1. Acute nonocculsive deep vein thrombosis involving the left common femoral vein and acute occlusive deep vein thrombosis involving the left saphenofemoral junction. 2. 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 Acute superficial vein thrombosis involving the left great saphenous vein Left lower extremity venous duplex evaluation. Doppler flow study including spectral analysis, color and jeter scale imaging. Location: Vascular laboratory. Patient status: Outpatient. CRITICAL FINDINGS - Reported to: Rosa Maria Chen - Read back and verified. - 08/14/2018 - 1:30 pm - DVT and SVT Tables: Venous flow and imaging: + + + + + Location Overall Flow properties Comments + + + + + Left common Partially Absent; not femoral occluded spontaneous; no augmentation; noncompressible + + + + + Left Totally Noncompressible saphenofemoral occluded junction + + + + + Left profunda Patent Compressible femoral + + + + + Left femoral Patent Normal phasicity; spontaneous; normal augmentation; compressible + + + + + Left greater Totally Diminished The left greater saphenous occluded phasicity; not saphenous is spontaneous; no noncompressible and augmentation; dilatedjust after the noncompressible SFJ at the proximal thigh. Below the proximal thigh the greater saphenous vein remains patent and compressible. + + + + + Left popliteal Partially Diminished Linear occluded phasicity; not hyperechogenicities spontaneous; are noted at the mid diminished popliteal vein augmentation; consistent with post partially thrombotic syndrome
[2018-08-14 12:56] LABS: Blood Urea Nitrogen 16 mg/dL (7-18); Creatinine,Serum 1.24 mg/dL (0.70-1.30); Estimated Glomerular Filt Rate 59 ml/min (>60); GFR (African American) 72 ML/MIN (>60)
--- NOTE | 2018-08-14 13:31 | CT_ITS ---
CT angio chest HISTORY: Swelling, shortness of air ITS.REASON: SOB ORDERING PHYSICIAN: ELVIA Hutchinson PATIENT AGE: 63 years COMPARISON: 04/24/2016 TECHNIQUE: Axial images obtained following the administration of 75 mL of Isovue 370 . Sagittal, and coronal reformatted images are also generated and reviewed. All CT scans at the facility use one or more dose reduction, viz: automated exposure control, ma/kV adjustment per patient size (including targeted exams where dose is matched to indication, i.e. head), or iterative reconstruction technique. FINDINGS: Acute pulmonary emboli are present bilaterally. There is an embolus at the bifurcation of the descending branch of the right pulmonary artery extending into both right right middle lobe and right lower lobe branches. Embolus is present in the anterior segmental branch of the right upper lobe. On the left emboli is noted in the left lower lobe pulmonary artery and subsegmental branches. Normal heart size. No evidence of pericardial effusion or aortic aneurysm. There are coronary artery calcifications present. Nodular opacity is present in the lingula laterally at 10 mm not significant changed in size but more solid-appearing on today's exam. An additional nodule present in the left lower lobe anteriorly at nearly 10 mm slightly larger compared to the previous exam. This area however was previously somewhat obscured by the overlying diaphragm. Month follow-up suggested. Upper abdominal images are unremarkable. IMPRESSION: 1. Acute bilateral pulmonary emboli 2. Nodular opacities in the left lung base slightly more prominent nonspecific. Continued follow-up suggested. Significant findings called to ELVIA Hutchinson on 08/14/2018 2:25 PM.
== END ==
PROVIDERS: PCP Family Medicine; Visit Provider Physician Assistant
DX: R06.02 Shortness of breath (principal); R60.0 Localized edema
CPT/HCPCS: 36415; 71275; 82565; 84520; 93971; Q9967

== ENCOUNTER → 2018-09-13 16:35 | Outpatient (CLI) | payer BC, SELFPAY | PROVIDERS: PCP Family Medicine; Visit Provider Physician Assistant | DX: G47.33 Obstructive sleep apnea (adult) (pediatric) (principal); G47.10 Hypersomnia, unspecified; I10 Essential (primary) hypertension; R53.83 Other fatigue; R06.83 Snoring | CPT/HCPCS: 95806 ==

== ENCOUNTER → 2018-12-21 07:41 | Outpatient (CLI) | payer BC, SELFPAY ==
[2018-12-21 08:47] LABS: Alanine Aminotransferase 24 U/L (12-78); Albumin Level 3.5 gm/dL (3.4-5.0); Alkaline Phosphatase 102 U/L (46-116); Aspartate Amino Transferase 17 U/L (15-37); Bilirubin,Direct 0.2 mg/dL (0.0-0.2); Bilirubin,Indirect 0.5 mg/dL (0.0-0.9); Bilirubin,Total 0.7 mg/dL (0.2-1.0); Total Protein,Serum 6.6 gm/dL (6.4-8.2)
== END ==
PROVIDERS: Visit Provider Internal Medicine Gastroenterology
DX: R10.11 Right upper quadrant pain (principal)
CPT/HCPCS: 36415; 80076

== ENCOUNTER → 2019-03-20 13:57 | Outpatient (CLI) | payer BC, SELFPAY ==
[2019-03-20 14:17] LABS: Blood Urea Nitrogen 16 mg/dL (7-18); Creatinine,Serum 1.26 mg/dL (0.70-1.30); Estimated Glomerular Filt Rate 58 ml/min (>60); GFR (African American) 70 ML/MIN (>60)
--- NOTE | 2019-03-20 14:32 | CT_ITS ---
CT angio chest HISTORY: Shortness of air, history of pulmonary embolus ITS.REASON: SOB ORDERING PHYSICIAN: ELVIA Hutchinson PATIENT AGE: 63 years COMPARISON: 08/14/2018 TECHNIQUE: Axial images obtained following the administration of 75 mL of Optiray 350 . Sagittal, and coronal reformatted images are also generated and reviewed. All CT scans at the facility use one or more dose reduction, viz: automated exposure control, ma/kV adjustment per patient size (including targeted exams where dose is matched to indication, i.e. head), or iterative reconstruction technique. FINDINGS: No mediastinal or hilar mass evident. No evidence of aortic aneurysm. No evidence of acute pulmonary embolus. There is a small thin weblike area of decreased density at the bifurcation of the descending branch of the right pulmonary artery consistent with some minimal residual from the previous embolus noted at this region. Faint groundglass density in the right lung base medially nonspecific. There is a small subpleural opacity in the right lung base laterally and anteriorly also nonspecific. A small parenchymal opacity is present in the lingula at 11 mm not significant changed. There is a 10 mm noncalcified nodule in the left lung base laterally and the costophrenic sulcus unchanged. No acute bony findings. There is a small exophytic density projecting off the posterior aspect of the right kidney consistent with a renal cyst millimeters. Small hiatal hernia also noted. IMPRESSION: 1. No evidence of acute pulmonary of this. 2. Minimal linear weblike area of decreased density in the bifurcation of the descending branch of the right pulmonary artery consistent with sequela from the previously noted embolus which is much smaller on today's exam. 3. Faint groundglass opacity right lung base medially possibly due to a small area of pneumonitis 4. Other nonacute findings as described above.
== END ==
PROVIDERS: Visit Provider Physician Assistant
DX: R06.02 Shortness of breath (principal)
CPT/HCPCS: 36415; 71275; 82565; 84520; Q9967

== ENCOUNTER → 2019-04-11 08:47 | Outpatient (CLI) | payer BC, SELFPAY ==
[2019-04-11 11:17] LABS: Alanine Aminotransferase 29 U/L (12-78); Albumin Level 3.5 gm/dL (3.4-5.0); Alkaline Phosphatase 97 U/L (46-116); Aspartate Amino Transferase 17 U/L (15-37); Bilirubin,Direct 0.1 mg/dL (0.0-0.2); Bilirubin,Indirect 0.4 mg/dL (0.0-0.9); Bilirubin,Total 0.5 mg/dL (0.2-1.0); Total Protein,Serum 6.3 gm/dL (6.4-8.2)
== END ==
PROVIDERS: Visit Provider Internal Medicine Gastroenterology
DX: R10.11 Right upper quadrant pain (principal)
CPT/HCPCS: 36415; 80076

== ENCOUNTER → 2019-05-05 15:47 | Outpatient (POV) | payer BC, SELFPAY | PROVIDERS: PCP Family Medicine; Visit Provider Nurse Practitioner Family | DX: Z00.00 Encounter for general adult medical examination without abnormal findings (principal) ==

== ENCOUNTER → 2019-07-16 14:39 | Outpatient (CLI) | payer BC, SELFPAY ==
--- NOTE | 2019-07-16 14:41 | CA_ITS ---
APPROVED REPORT EXAM: Comprehensive 2D, Doppler, and color-flow Echocardiogram Tractor Operator: Daniela Carlin RT(R) Ht: 5 ft 10 in Wt: 278lbs BSA: 2.40 BP: 123/78 mmHg Indications: SOB, HTN, hyperlipidemia, family history of heart disease, CAD, myocardial bridge, CHF, GERD 2D Dimensions LVOT 2.00 cm (M/F) 1.5-2.5 M-Mode Dimensions LA Diam 5.40 cm (1.9-4.0) LVDd 5.90 cm (3.5-5.7) Ao Diam 4.00 cm (2.0-3.7) LVDs 4.60 cm (3.5-5.7) AV Cusp 3.10 cm (1.5-2.6) IVSd 1.60 cm (0.6-1.1) PWd 1.00 cm (0.6-1.1) EF (Teich) 43.80% FS 22.00% EDV (Teich) 173.00 mL ESV (Teich) 97.30 mL LV Diastology E/A Ratio 0.7 MED E' 6.43 (< 7 cm/sec) E'/MED E' Ratio 8.40 (>14) LAT E' 5.75 (<10 cm/sec) E/LAT E' Ratio 9.40 (>14) Mitral Valve MV E Max Donny. 54.30 (40-130 cm/s) MV A Velocity 81.90 (40-130 cm/s) E/A Ratio 0.70 Left Ventricle Left atrium is mildly enlarged, left ventricle is normal size, mild concentric left ventricular hypertrophy, visually estimated ejection fraction 55% with no regional wall motion abnormality. Grade 1 diastolic dysfunction seen without tissue Doppler evidence of raise left atrial pressure. Right Ventricle Right atrium and right ventricular mildly enlarged with normal contractility. Aortic Valve Aortic valve is minimally thickened and fibrosed. There is no aortic stenosis aortic insufficiency. Mitral Valve Mitral valve leaflets are minimally thickened, there is no mitral stenosis, there is mild mitral regurgitation. Tricuspid Valve Tricuspid valve is grossly normal, there is mild tricuspid regurgitation. Pulmonic Valve Pulmonic valve is poorly visualized. Great Vessels Aortic root is normal size. Pericardium No significant pericardial effusion noted. Conclusion 1. Mildly enlarged left atrium, normal left ventricular size, mild concentric left ventricular hypertrophy, visually estimated ejection fraction 55% with no regional wall motion abnormality, grade 1 diastolic dysfunction seen without tissue Doppler evidence of raise left atrial pressure. 2. Mildly enlarged right ventricle with normal contractility. 3. Mild mitral and tricuspid regurgitation. 4. No significant pericardial effusion noted. Electronically signed by : Fabrice Mesa, 07/17/2019 15:25:20
== END ==
PROVIDERS: PCP Family Medicine; Visit Provider Nurse Practitioner Family
DX: I10 Essential (primary) hypertension (principal); Q24.5 Malformation of coronary vessels; R06.00 Dyspnea, unspecified
CPT/HCPCS: 93306

== ENCOUNTER → 2019-09-29 14:12 | Outpatient (CLI) | payer BC, SELFPAY ==
[2019-09-29 16:17] LABS: Alanine Aminotransferase 22 U/L (12-78); Albumin Level 3.7 gm/dL (3.4-5.0); Alkaline Phosphatase 104 U/L (46-116); Aspartate Amino Transferase 11 U/L (15-37); Bilirubin,Direct 0.2 mg/dL (0.0-0.2); Bilirubin,Indirect 0.3 mg/dL (0.0-0.9); Bilirubin,Total 0.5 mg/dL (0.2-1.0); Total Protein,Serum 6.5 gm/dL (6.4-8.2)
== END ==
PROVIDERS: Visit Provider Nurse Practitioner Family
DX: K22.2 Esophageal obstruction (principal); K75.81 Nonalcoholic steatohepatitis (NASH)
CPT/HCPCS: 36415; 80076

== ENCOUNTER → 2019-10-13 16:00 | Outpatient (POV) | payer BC, SELFPAY | PROVIDERS: Visit Provider Nurse Practitioner Family | DX: Z00.00 Encounter for general adult medical examination without abnormal findings (principal) ==

== ENCOUNTER → 2020-05-20 13:25 | Outpatient (CLI) | payer BC, SELFPAY ==
[2020-05-20 16:41] LABS: Coronavirus 19 IgG Antibody Negative (Negative); Coronavirus 19 IgM Antibody Negative (Negative)
== END ==
PROVIDERS: Visit Provider Internal Medicine Gastroenterology
DX: Z01.818 Encounter for other preprocedural examination (principal); Z12.11 Encounter for screening for malignant neoplasm of colon; K92.1 Melena
CPT/HCPCS: 36415; 86328

== ENCOUNTER 2020-05-21 07:26 | Day surgery (SDC) | payer BC, SELFPAY ==
[2020-05-18 11:01] VITALS: BMI 40.1
[2020-05-21] VITALS (7 sets, daily range): BP systolic 103–117; BP diastolic 49–78; PULSE 51–88; RESP 16–20; TEMP 36.4–37.2; O2SAT 94–98
--- NOTE | 2020-05-21 08:38 | P.PCN_ITS ---
[facility] Procedure Note Procedure Note:: Colonoscopy Procedure Report: Colonoscopy with cold snare polypectomy and hemorrhoid band ligation Endoscopist: Keny Cox II, MD Referring physician: Pollo Burton MD Date of Procedure: May 21, 2020 Equipment: Olympus 180 variable stiffness pediatric colonoscope Sedation: MAC sedation Indication: Mr. Spencer is a 65-year-old gentleman who had originally seen me for ERCP in July 2018. At that time he had been hospitalized for gallstones and gallbladder disease with biliary colic and gallstone pancreatitis. His cholecystectomy with intraoperative cholangiogram did show a filling defect with a common bile duct stone. I did do ERCP showing some sludge and sphincter of Oddi dysfunction. He later saw me for dysphagia and had EGD with dilation of a Schatzki's ring in September 2018. I did dilate the esophagus and he has not had any further symptoms. 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 More recently, the patient reports bright red rectal bleeding for the last 6 months. This did worsen and he was seen has pretty regularly but over the last few weeks his has declined. He still sees some bright red blood on the tissue. He reports no abdominal pain, weight loss, change in his bowel habits or family history of colon cancer. His last colonoscopy was in 2017 (Dr. Pavel Spaulding M.D.). Procedure: Prior to the procedure, a history and physical exam was performed, and patient's medications and allergies were reviewed. The risks, benefits and alternatives of the sedation and procedure were discussed with the patient. All questions were answered and informed consent was obtained. The patient was brought to the procedure room. Patient identification and proposed procedure were verified by the physician and the nurse. The patient was placed in a left lateral decubitus position and the scope was passed under direct vision. Throughout the procedure, the patient's blood pressure, pulse, and oxygen saturations were monitored continuously. The colonoscopy was accomplished without difficulty. The patient tolerated the procedure well. Findings: On digital rectal examination there was normal rectal tone. There were no external hemorrhoids. The colonoscope was introduced through the anal canal to the rectum and advanced to the cecum. The ileocecal valve and appendiceal orifice were identified. The scope was advanced a short distance into the ileum which appeared grossly normal. The scope was then withdrawn into the colon. There were 2 diminutive polyps (cecum x1 (3 mm) and descending x1 (5 mm)) that were both removed via cold snare polypectomy. There were scattered diverticuli throughout the descending and sigmoid colon (LEFT colon). The rectum itself was normal. Upon retroflexion within the rectum there were grade 2-3 internal hemorrhoids. These were banded using 3 bands with excellent ligation effect. The preparation was excellent throughout with [place] Preparation Score of 9. The cecal time was 12 minutes. Impression: 1. Diminutive colonic polyps x2 2. Left-sided diverticulosis 3. Grade 2 internal hemorrhoids status post band ligation x3 Plan: I will follow up the polyp pathology and recommend repeat colonoscopy again in 7-10 years based upon the polyp histology. I would encourage fiber supplementation on a long-term daily maintenance basis.
--- NOTE | 2020-05-21 08:39 | HMH.ANESCL ---
[facility] Anesthesia Checklist - Structural Data Admitted From: Home Planned Operative Procedure/s: colonoscopy Consent for Planned Operative Procedure(s) Verified: Yes - Additional verifications Anesthesia Reactions: No Hx Blood Transfusions: No Blood Transfusion Reaction: No - Airway Assessment C-Spine Mobility Assessed: Yes TMJ Mobility Assessed: Yes Dentition: Good Dentition - Neurological Assessment Level of Consciousness: Awake, Alert, Appropriate - Anesthesia Plan Anesthesia Risk discussed: Yes Anesthesia Plan: Verified ASA Class: II Anesthesia Type: MAC [facility] History I have reviewed the patient's past medical history: Yes Medical History: Reports:: Congestive Heart Failure, Gall Bladder Disease, Gastroesophageal Reflux Disease(GERD), Hyperlipidemia, Hypertension, Lung Disease Denies:: Cancer, Diabetes Mellitus Type 1, Diabetes Mellitus Type 2, Internal Pacemaker, MRSA, Seizures *Have you ever received a pneumonia vaccine?: No *Have you received a flu vaccine this season?: Yes Other Medical History: Reports: Other. Denies: Blood Transfusion Reaction Anesthesia experience/problems:: none Laterality Cases: Bilateral: Arthroscopy Knee Other Surgeries: Yes: Appendectomy, Cardiac Catheterization (MYOCARDIAL BRIDGE), Cholecystectomy, Colonoscopy, Other. No: Pacemaker Amputation: No Fractures: No - *Social History Last grade of school completed: High school graduate Smoking Status: Never smoker Alcohol Intake: never Substance Use Type: denies use *Occupational Status:: employed Housing: house Household Members: spouse *Travel in the last 8 weeks: None Family Hx:: Cancer, Heart Attack
== END 2020-05-21 10:05 | disposition home or self-care (01) ==
LOC: OUTP 07:30
PROVIDERS: PCP Family Medicine; Visit Provider Internal Medicine Gastroenterology
PROC: 0DJD8ZZ Inspection of Lower Intestinal Tract, Via Natural or Artificial Opening Endoscopic (ICD-10-PCS; CPT 45378; principal; 2020-05-21 08:30)
DX: Z87.19 Personal history of other diseases of the digestive system (principal); K63.5 Polyp of colon; K57.30 Diverticulosis of large intestine without perforation or abscess without bleeding; K64.1 Second degree hemorrhoids; I50.9 Heart failure, unspecified; I11.0 Hypertensive heart disease with heart failure; E78.5 Hyperlipidemia, unspecified; K21.9 Gastro-esophageal reflux disease without esophagitis; Z90.49 Acquired absence of other specified parts of digestive tract; Z80.9 Family history of malignant neoplasm, unspecified; Z82.3 Family history of stroke; Z79.899 Other long term (current) drug therapy
CPT/HCPCS: 45385; 45398

== ENCOUNTER → 2020-10-05 09:31 | Outpatient (CLI) | payer BC, SELFPAY ==
--- NOTE | 2020-10-05 09:54 | CA_ITS ---
APPROVED REPORT Left Lower Extremity Venous Study for DVT. Plain Clothes Police Officer: CT Indications Lower Extremity Pain: Left Pt fell 3weeks ago, knot below Left knee, Risk Factors Obesity Prior Pulmonary Embolism Past History DVT : Bilateral SVT : Pulmonary Embolism Prior Lower Extremity Venous Duplex Medications Eliquis 2.5 mg BID Vein Imaging CFV (L): compressive, spontaneous, phasic, augmentation SFJ (L): compressive, spontaneous, phasic, augmentation FEM (L): compressive, spontaneous, phasic, augmentation POP (L): compressive, spontaneous, phasic, augmentation DFV (L): compressive, spontaneous, phasic, augmentation PTV (L): compressive, spontaneous, phasic, augmentation GSV (L): compressive, spontaneous, phasic, augmentation SSV (L): Not Visualized Peroneals (L):Not Visualized GAS (L): compressive, spontaneous, phasic, augmentation Findings LLE negative for DVT/SVT. Vessels compressible. Conclusion LLE negative for DVT/SVT. Vessels compressible. Electronically signed by : Elmer Correia MD 10/05/2020 19:58:30
== END ==
PROVIDERS: PCP Family Medicine; Visit Provider Family Medicine
DX: M79.604 Pain in right leg (principal); Z86.718 Personal history of other venous thrombosis and embolism
CPT/HCPCS: 93971

== ENCOUNTER → 2020-10-15 10:07 | Outpatient (CLI) | payer BC, SELFPAY ==
[2020-10-15 11:09] LABS: Alanine Aminotransferase 24 U/L (12-78); Albumin Level 3.9 g/dl (3.5-5.0); Albumin/Globulin Ratio 1.4 (1.1-1.8); Alkaline Phosphatase 109 U/L (38-126); Amylase 38 U/L (30-110); Anion Gap 13.7 mEq/L (5-15); Aspartate Amino Transferase 24 U/L (17-59); Bilirubin,Total 0.5 mg/dl (0.2-1.3); Blood Urea Nitrogen 13 mg/dl (9-20); Calcium 9.1 mg/dl (8.4-10.2); Carbon Dioxide 29 mmol/L (22.0-30.0); Chloride 101 mmol/L (98-107); Estimated Glomerular Filt Rate 51 ml/min (>60); GFR (African American) 62 ML/MIN (>60); Globulin 2.8 g/dL (1.3-3.2); Glucose 106 mg/dl (74-100); Lipase 123 U/L (23-300); Potassium 4.7 mmoL/L (3.5-5.1); Sodium 139 mmol/L (136-145); Total Protein,Serum 6.7 g/dl (6.3-8.2)
== END ==
PROVIDERS: Visit Provider Family Medicine
DX: I10 Essential (primary) hypertension (principal); E78.5 Hyperlipidemia, unspecified
CPT/HCPCS: 80053; 82150; 83690

== ENCOUNTER → 2021-01-05 10:25 | Outpatient (CLI) | payer BC, SELFPAY ==
[2021-01-05 12:06] LABS: Alanine Aminotransferase 23 U/L (12-78); Albumin Level 4.2 g/dl (3.5-5.0); Alkaline Phosphatase 100 U/L (38-126); Aspartate Amino Transferase 26 U/L (17-59); Bilirubin,Indirect 0.7 mg/dL (0.0-0.9); Bilirubin,Total 0.7 mg/dl (0.2-1.3); Bilirubin,Unconjugated 0.6 mg/dL (0.0-1.1); Chol/HDL Ratio 4.3 (1-3.5); Cholesterol 146 mg/dl (140-200); HDL Cholesterol 34 mg/dl (40-60); Total Protein,Serum 6.7 g/dl (6.3-8.2); Triglycerides 263 mg/dl (30-150); VLDL Cholesterol 53 mg/dL (0-40)
[2021-01-05 12:18] LABS: Direct LDL Cholesterol 82.63 mg/dL (100-129)
== END ==
PROVIDERS: Visit Provider Urology
DX: I11.9 Hypertensive heart disease without heart failure (principal); E11.9 Type 2 diabetes mellitus without complications
CPT/HCPCS: 36415; 80061; 80076

== ENCOUNTER → 2021-07-01 11:00 | Outpatient (CLI) | payer BC, SELFPAY ==
--- NOTE | 2021-07-01 | CA_ITS ---
APPROVED REPORT Bilateral Lower Extremity Venous Study for DVT. Apartment Maintenance Manager: Suad Yanes, DIANET Indications Lower Extremity Edema: Bilateral Pre-op, Hx of DVT and PE's Risk Factors Prior Phlebitis/DVT Past History DVT : Pulmonary Embolism Medications Pt on Eliqus Vein Imaging CFV (R): compressive, spontaneous, phasic, augmentation FEM (R): compressive, spontaneous, phasic, augmentation POP (R): compressive, spontaneous, phasic, augmentation PTV (R): Compressible GSV (R): Compressible Peroneals (R):Compressible GAS (R): Compressible CFV (L): compressive, spontaneous, phasic, augmentation FEM (L): compressive, spontaneous, phasic, augmentation POP (L): compressive, spontaneous, phasic, augmentation PTV (L): Compressible GSV (L): Compressible Peroneals (L):Compressible GAS (L): Compressible Findings Study suggests no evidence of DVT or SVT of the bilateral lower extremities. Conclusion Study suggests no evidence of DVT or SVT of the bilateral lower extremities. Electronically signed by : Ar Church MD 07/01/2021 15:57:28
--- NOTE | 2021-07-01 11:44 | ECG_ITS ---
APPROVED REPORT Exam: Resting ECG HR:68 bpm ECG Measurements Heart Rate 68 AXES NE 136 P 36 QRSd 80 QRS 14 QT 384 T 10 QTc 408 Conclusion Normal sinus rhythm Normal ECG Electronically signed by : Ethan Perry MD 07/01/2021 17:33:50
== END ==
PROVIDERS: PCP Family Medicine; Visit Provider Family Medicine
DX: Z01.818 Encounter for other preprocedural examination (principal); Z86.711 Personal history of pulmonary embolism
CPT/HCPCS: 93005; 93970

== ENCOUNTER → 2022-01-13 12:47 | Outpatient (CLI) | payer BC, SELFPAY ==
--- NOTE | 2022-01-13 12:49 | CA_ITS ---
APPROVED REPORT EXAM: Comprehensive 2D, Doppler, and color-flow Echocardiogram Strategy Manager: Daniela Carlin RT(R) Ht: 5 ft 10 in Wt: 292lbs BSA: 2.45 BP: 114/78 mmHg Indications: HTN, SOB, hyperlipidemia, CAD, myocardial bridge, hx PE, GERD, CHF Echo Enhancing Agent Indication: Endocardial border delineation Agent(s) / Amount(s) Used: Definity 2 cc 2D Dimensions LVOT 2.04 cm (M/F) 1.5-2.5 M-Mode Dimensions RVDd 2.63 cm (0.9-2.6) LA Diam 5.37 cm (1.9-4.0) LVDd 3.66 cm (3.5-5.7) Ao Diam 3.63 cm (2.0-3.7) LVDs 2.37 cm (3.5-5.7) IVSd 1.16 cm (0.6-1.1) PWd 0.94 cm (0.6-1.1) EF (Teich) 65.50% FS 35.20% EDV (Teich) 56.60 mL ESV (Teich) 19.50 mL LV Diastology E Decel Time 203.00 (160-240 msec) E/A Ratio 1.1 MED E' 6.60 (< 7 cm/sec) E'/MED E' Ratio 10.65 (>14) LAT E' 7.00 (<10 cm/sec) E/LAT E' Ratio 10.04 (>14) Mitral Valve MV E Max Donny. 70.00 (40-130 cm/s) MV A Velocity 65.00 (40-130 cm/s) E/A Ratio 1.08 MV Decel. Time 203.00 (160-240 ms) MV PHT 60.00 ms Left Ventricle Left atrium is mildly enlarged, left ventricle is normal size, mild concentric left ventricular hypertrophy, estimated ejection fraction 55% with no regional wall motion abnormality, grade 1 diastolic dysfunction seen without tissue Doppler evidence of raise left atrial pressure. Definity contrast was utilized to delineate the endocardial surfaces there is normal left ventricular thrombus seen. Right Ventricle Right atrium and right ventricle are normal size and contractility. Aortic Valve Aortic valve is minimally thickened and fibrosed. There is no aortic stenosis or aortic insufficiency. Mitral Valve Mitral valve is grossly normal, there is trace mitral regurgitation. Tricuspid Valve Tricuspid grossly normal, there is trace tricuspid regurgitation, tricuspid regurgitation jet velocity is inadequate for calculation of the right ventricular systolic pressure. Pulmonic Valve Pulmonic valve is poorly visualized. Great Vessels Aortic root is normal size. Inferior vena cava is poorly visualized. Pericardium No significant pericardial effusion noted. Conclusion 1. Mildly enlarged atrium, normal left ventricular size, mild concentric left ventricular hypertrophy, estimated ejection fraction 55% with no regional wall motion abnormality, grade 1 diastolic dysfunction seen without tissue Doppler evidence of raise left atrial pressure. Definity contrast was utilized to delineate the endocardial surfaces. There is no left ventricular thrombus seen. 2. Trace mitral and tricuspid regurgitation. 3. No significant pericardial effusion noted. 4. Inferior vena cava is poorly visualized. Electronically signed by : Fabrice Mesa MD 01/13/2022 17:13:49
== END ==
PROVIDERS: PCP Family Medicine; Visit Provider Physician Assistant
DX: R06.02 Shortness of breath (principal); I25.10 Atherosclerotic heart disease of native coronary artery without angina pectoris; I10 Essential (primary) hypertension; E78.2 Mixed hyperlipidemia; Q24.5 Malformation of coronary vessels; Z86.711 Personal history of pulmonary embolism; Z86.718 Personal history of other venous thrombosis and embolism
CPT/HCPCS: 93306

== ENCOUNTER → 2022-10-04 15:20 | Outpatient (CLI) | payer BC, SELFPAY ==
[2022-10-04 16:06] LABS: Chloride 107 mmol/L (98-107); Potassium 3.9 mmoL/L (3.5-5.1); Sodium 141 mmol/L (136-145)
[2022-10-04 16:09] LABS: Alanine Aminotransferase 28 U/L (12-78); Albumin Level 4.1 g/dl (3.5-5.0); Albumin/Globulin Ratio 1.6 (1.1-1.8); Alkaline Phosphatase 131 U/L (38-126); Anion Gap 13.9 mEq/L (5-15); Aspartate Amino Transferase 28 U/L (17-59); Bilirubin,Total 0.6 mg/dl (0.2-1.3); Blood Urea Nitrogen 18 mg/dl (9-20); Calcium 8.9 mg/dl (8.4-10.2); Carbon Dioxide 24 mmol/L (22.0-30.0); Estimated Glomerular Filt Rate 51 ml/min (>60); GFR (African American) 62 ML/MIN (>60); Globulin 2.6 g/dL (1.3-3.2); Glucose 121 mg/dl (74-100); Total Protein,Serum 6.7 g/dl (6.3-8.2)
== END ==
PROVIDERS: PCP Family Medicine; Visit Provider Nurse Practitioner Family
DX: R13.10 Dysphagia, unspecified (principal); K75.81 Nonalcoholic steatohepatitis (NASH)
CPT/HCPCS: 36415; 80053

== ENCOUNTER 2023-02-03 18:56 | Emergency (ER) | payer BC, SELFPAY ==
[2023-02-03 19:08] VITALS: BP 140/86; PULSE 89; RESP 19; TEMP 37.3; O2SAT 100; BMI 41.5
--- NOTE | 2023-02-03 19:26 | EXP.UTC ---
Discharge Plan Disposition Patient Disposition: Home, Self-Care Condition: Good Prescriptions Prescriptions: New amoxicillin [amoxicillin] 500 mg tablet 500 mg PO BID 10 Days Qty: 20 0RF No Action furosemide [Lasix] 20 mg tablet 20 mg PO DAILY celecoxib [Celebrex] 200 mg capsule 200 mg PO DAILY gabapentin 100 mg capsule 100 mg PO BID omeprazole 40 mg capsule,delayed release(DR/EC) 20 mg PO DAILY PRN (Reason: gerd) vitamin B complex [B Complex-Vitamin B12] Tablet 1 tab PO DAILY cholecalciferol (vitamin D3) 1,000 unit capsule 1,000 unit PO DAILY ascorbic acid (vitamin C) 500 mg capsule 500 mg PO DAILY bisoprolol fumarate 5 mg tablet See Rx Instructions .ROUTE .COMPLEX Qty: 60 0RF Dose Instruction: TAKE 1 TABLET BY MOUTH ONCE DAILY AT BEDTIME FOR HIGH BLOOD PRESSURE Rx Instructions: TAKE 1 TABLET BY MOUTH ONCE DAILY AT BEDTIME FOR HIGH BLOOD PRESSURE apixaban 5 mg tablet 2.5 mg PO BID Referrals Follow up/Referrals: Yessy Burton MD [Primary Care Provider] - See instructions Activity Restrictions/Add. Instructions Additional Instructions/Restrictions: follow up with dentist on Sunday meds as ordered if symptoms worsen or no improvement return Clinical Impressions Clinical Impression: Abscess, dental Instructions Patient Instructions: Tooth Abscess [facility] [facility] [place] General Stated complaint: dental pain Mode of Arrival: Ambulatory Source of Information: Patient Limitations: No Limitations Time Seen by Provider: 02/03/23 19:26 Description of Symptoms (Recalled from Triage Doc. by RN): pt c/o an abcessed L upper tooth. HEENT Symptoms (Recalled from RN notes): Yes Resp Symptoms (Recalled from RN notes): No Skin Symptoms (Recalled from RN notes): No MS Symptoms (Recalled from RN notes): No Functional Status (Recalled from RN notes): wnl History of Present Illness Provider Complaint: 67 yr old male presents for dental pain to upper left side. pt states he has a appointment on for root canal but 3 days ago the tooth flared up again and Dr Duran wants him to have a injection and antibiotics Related Data Home Medications Medication Instructions Recorded Confirmed celecoxib 200 mg capsule (Celebrex) 200 mg PO DAILY Pain 03/27/18 01/04/22 furosemide 20 mg tablet (Lasix) 20 mg PO DAILY Fluid 03/27/18 01/04/22 gabapentin 100 mg capsule 100 mg PO BID NEUROPATHY 03/27/18 01/04/22 ascorbic acid (vitamin C) 500 mg 500 mg PO DAILY Supplement 07/16/19 01/04/22 capsule cholecalciferol (vitamin D3) 25 1,000 unit PO DAILY Supplement 07/16/19 01/04/22 mcg (1,000 unit) capsule omeprazole 40 mg capsule,delayed 20 mg PO DAILY PRN gerd 07/16/19 01/04/22 release vitamin B complex (B 1 tab PO DAILY Supplement 07/16/19 01/04/22 Complex-Vitamin B12 tablet) apixaban 5 mg tablet 2.5 mg PO BID hx of DVT & PE 02/05/20 01/04/22 Previous Rx's Medication Instructions Recorded bisoprolol fumarate 5 mg tablet See Rx Instructions .Route 01/15/23 .COMPLEX #60 tabs amoxicillin 500 mg tablet 500 mg PO BID 10 days #20 tabs 02/03/23 Allergies Allergy/AdvReac Type Severity Reaction Status Date / Time No Known Allergies Allergy Verified 02/03/23 19:23 Worker's Comp Is this a Worker's Comp case?: No [facility] Disclaimer: The information contained in this section may have been updated after the patient was seen, as this information can be updated by other users. 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
[2023-02-03 19:45] VITALS: BP 140/86; PULSE 89; RESP 19; TEMP 37.3
== END 2023-02-03 19:53 | disposition home or self-care (01) ==
PROVIDERS: Emergency Provider Nurse Practitioner Family; PCP Family Medicine
DX: K04.7 Periapical abscess without sinus (principal); I10 Essential (primary) hypertension; E78.5 Hyperlipidemia, unspecified; K21.9 Gastro-esophageal reflux disease without esophagitis
CPT/HCPCS: 96372; 99212; 99214; G0463; J0696

== ENCOUNTER → 2023-10-03 11:10 | Outpatient (CLI) | payer BC, SELFPAY ==
[2023-10-03 12:08] LABS: Alanine Aminotransferase 25 U/L (12-78); Albumin Level 3.9 g/dl (3.5-5.0); Albumin/Globulin Ratio 1.5 (1.1-1.8); Alkaline Phosphatase 88 U/L (38-126); Anion Gap 6.3 mEq/L (5-15); Aspartate Amino Transferase 27 U/L (17-59); Bilirubin,Total 0.6 mg/dl (0.2-1.3); Blood Urea Nitrogen 13 mg/dl (9-20); Calcium 8.6 mg/dl (8.4-10.2); Carbon Dioxide 27 mmol/L (22.0-30.0); Chloride 110 mmol/L (98-107); Estimated Glomerular Filt Rate 55 ml/min (>60); GFR (African American) 67 ML/MIN (>60); Globulin 2.6 g/dL (1.3-3.2); Glucose 106 mg/dl (74-100); Potassium 4.3 mmoL/L (3.5-5.1); Sodium 139 mmol/L (136-145); Total Protein,Serum 6.5 g/dl (6.3-8.2)
== END ==
LOC: LAB 11:12
PROVIDERS: PCP Family Medicine; Referring Provider Nurse Practitioner Family; Visit Provider Internal Medicine Gastroenterology
DX: K75.81 Nonalcoholic steatohepatitis (NASH) (principal)
CPT/HCPCS: 36415; 80053

== ENCOUNTER 2024-02-28 16:40 | Outpatient (CLI) | payer BC, SELFPAY ==
--- NOTE | 2024-02-28 16:44 | XR_ITS ---
PROCEDURE INFORMATION: Exam: XR Chest Exam date and time: 02/28/2024 4:45 PM Age: 68 years old Clinical indication: Other: Coronary-myocardial bridge TECHNIQUE: Imaging protocol: Radiologic exam of the chest. Views: 2 views. COMPARISON: [facility] CT angio chest 03/20/2019 4:08 PM and chest x-ray 06/24/2018 FINDINGS: Lungs: Stable bandlike densities in the left lung base adjacent to the apex of the heart compatible with discoid atelectasis or scarring. Lungs are otherwise clear. Pleural spaces: Unremarkable. No pleural effusion. No pneumothorax. Heart/Mediastinum: Unremarkable. No cardiomegaly. Bones/joints: Unremarkable. IMPRESSION: No acute disease.
--- NOTE | 2024-02-28 16:59 | ECG_ITS ---
APPROVED REPORT Exam: Resting ECG HR:68 bpm ECG Measurements Heart Rate 68 AXES UT 131 P 39 QRSd 85 QRS 39 QT 354 T 50 QTc 371 Conclusion SINUS RHYTHM WITH MARKED SINUS ARRHYTHMIA BORDERLINE ECG UNCONFIRMED REPORT Electronically signed by : Ethan Perry MD 03/01/2024 08:30:53
== END 2024-02-28 23:59 | disposition home or self-care (01) ==
LOC: RAD 16:41
PROVIDERS: PCP Family Medicine; Visit Provider Family Medicine
DX: Q24.5 Malformation of coronary vessels (principal); R60.0 Localized edema
CPT/HCPCS: 71046; 93005

== ENCOUNTER 2024-02-29 12:56 | Outpatient (CLI) | payer BC, SELFPAY ==
[2024-02-29 13:43] LABS: D-Dimer 0.36 ug/mL (0.0-0.5)
[2024-02-29 14:06] LABS: Chloride 109 mmol/L (98-107); Sodium 140 mmol/L (136-145)
[2024-02-29 14:07] LABS: Potassium 4.1 mmoL/L (3.5-5.1)
[2024-02-29 14:10] LABS: Anion Gap 10.1 mEq/L (5-15); Blood Urea Nitrogen 14 mg/dl (9-20); Calcium 9.2 mg/dl (8.4-10.2); Carbon Dioxide 25 mmol/L (22.0-30.0); Estimated Glomerular Filt Rate 55 ml/min (>60); GFR (African American) 67 ML/MIN (>60); Glucose 112 mg/dl (74-100)
[2024-02-29 14:22] LABS: Troponin I < 0.01 ng/ml (0.00-0.034)
== END 2024-02-29 23:59 | disposition home or self-care (01) ==
LOC: LAB 12:57
PROVIDERS: PCP Family Medicine; Visit Provider Family Medicine
DX: I49.1 Atrial premature depolarization (principal); Q24.5 Malformation of coronary vessels; R06.02 Shortness of breath; Z86.711 Personal history of pulmonary embolism
CPT/HCPCS: 36415; 80048; 84484; 85378; 93225; 93227

== ENCOUNTER 2024-03-10 13:24 | Outpatient (CLI) | payer BC, SELFPAY ==
--- NOTE | 2024-03-10 13:30 | CA_ITS ---
APPROVED REPORT EXAM: Comprehensive 2D, Doppler, and color-flow Echocardiogram Acute Care Physical Therapist: Daniela Carlin RT(R) Ht: 5 ft 10 in Wt: 290lbs BSA: 2.44 BP: 116/78 mmHg Indications: myocardial bridge, cp, HTN, edema, CAD, hx of PE's, DD. Technically difficult exam secondary to body habitus. 2D Dimensions EF AP4 63.70 % GL Strain -11.3 % M-Mode Dimensions RVDd 3.57 cm (0.9-2.6) LA Diam 5.03 cm (1.9-4.0) LVDd 4.80 cm (3.5-5.7) LVDs 3.52 cm (3.5-5.7) IVSd 1.27 cm (0.6-1.1) PWd 1.03 cm (0.6-1.1) EF (Teich) 52.00% FS 26.70% EDV (Teich) 107.50 mL ESV (Teich) 51.60 mL LV Diastology E Decel Time 173 (160-240 msec) E/A Ratio 1.2 Mitral Valve MV E Max Donny. 76.0 (40-130 cm/s) MV A Velocity 64.0 (40-130 cm/s) E/A Ratio 1.20 MV PHT 51.0 ms Left Ventricle The left ventricle is normal size. The left ventricular systolic function is normal. The left ventricular ejection fraction is within the normal range. There is increased LV wall thickness. There is normal LV segmental wall motion. The left ventricular diastolic function is normal. LVEF is 55%. Right Ventricle The right ventricle is normal size. The right ventricular systolic function is normal. Atria The left atrium is mildly dilated. The right atrium size is normal. There is no Doppler evidence of interatrial shunt. Aortic Valve The aortic valve is mildly thickened. There is no aortic valvular stenosis. No aortic regurgitation is present. Mitral Valve The mitral valve is normal in structure. No evidence of mitral valve stenosis. There is no mitral valve regurgitation noted. Tricuspid Valve The tricuspid valve leaflets are thin and pliable. Trace tricuspid regurgitation. There is insufficient TR jet to estimate RVSP. Pulmonic Valve The pulmonary valve is normal in structure. Trace pulmonic regurgitation. Great Vessels The aortic root is normal in size. The ascending aorta is not well-visualized. IVC is normal in size and collapses >50% with inspiration. Pericardium There is no pericardial effusion. Other Information Study Quality: Technically Difficult Conclusion Technically difficult study due to poor acoustic windows. Normal biventricular systolic function. Mild LA dilation. No significant valvular stenosis or regurgitation. Electronically signed by : Rosalinda Zeng MD 03/11/2024 15:09:01
== END 2024-03-10 23:59 | disposition home or self-care (01) ==
LOC: RT 13:24
PROVIDERS: PCP Family Medicine; Visit Provider Family Medicine
DX: Q24.5 Malformation of coronary vessels (principal)
CPT/HCPCS: 93306

== ENCOUNTER 2024-04-03 17:33 | Outpatient (CLI) | payer BC, SELFPAY ==
--- NOTE | 2024-04-03 17:47 | XR_ITS ---
PROCEDURE INFORMATION: Exam: XR Chest Exam date and time: 04/03/2024 5:48 PM Age: 68 years old Clinical indication: Cough; Additional info: Persistent cough TECHNIQUE: Imaging protocol: Radiologic exam of the chest. Views: 2 views. COMPARISON: CR XR CHEST 2V 02/28/2024 4:45 PM FINDINGS: Lungs: No evidence of acute pulmonary disease or infiltrates Pleural spaces: No large effusion or pneumothorax. Heart/Mediastinum: No evidence of mediastinal widening or cardiac silhouette enlargement; the mediastinum and heart appear within normal limits for contour and size. Bones/joints: No evidence of acute osseous abnormalities within the visualized portions of the thoracic spine and ribs. Osseous structures appear appropriate for patient age. IMPRESSION: No dense parenchymal consolidation, pleural effusion, or pneumothorax.
== END 2024-04-03 23:59 | disposition home or self-care (01) ==
LOC: RAD 17:36
PROVIDERS: PCP Psychiatry & Neurology Sleep Medicine; Visit Provider Psychiatry & Neurology Sleep Medicine
DX: R05.3 Chronic cough (principal)
CPT/HCPCS: 71046

== ENCOUNTER 2025-10-06 14:54 | Outpatient (CLI) | payer MEDICARE, SELFPAY ==
--- OUTSIDE RECORDS SUMMARY | 2025-09-01 13:40 | XMS_ITS | Encounter Summary ---
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 Role Phone Pcp, No Primary Care Provider Unavailabl e Reason for Visit * Reason Comments Follow-up Injections Encounter Details Date Type Department Care Team (Latest Contact Info) Description 09/01/2025 1:40 PM EST Office Visit Medical Office Building [facility] [address] [facility], [address] [place] [address] Lamont Lee MD [address] [place] [address] Primary osteoarthritis of left knee (Primary Dx) Social History Tobacco Use Types Packs/Day Years Used Date Smoking Tobacco: Never Passive Smoke Exposure: Never Smokeless Tobacco: Never Tobacco Cessation:Counseling Given: Not Answered Alcohol Use Standard Drinks/Week Comments Never 0 (1 standard drink = 0.6 oz pur e alcohol) Sex and Gender Information Value Date Recorded Sex Assigned at Male 08/28/2021 5:50 PM EST Legal Sex Male 8:41 PM EDT Gender Identity Male 08/28/2021 5:50 PM EST Sexual Orientation Straight 08/28/2021 5: 50 PM EST documented as of this encounter Last Filed Vital Signs Vital Sign Reading Time Taken Comments Blood Pressure 125/82 09/01/2025 2:04 PM EST Pulse 67 09/01/2025 2:04 PM EST Temperature - - Respiratory Rate 18 09/01/2025 2:04 PM EST Oxygen Saturation 96% 09/01/2025 2:04 PM EST Inhaled Oxygen Concentration - - Weight 131 kg (289 lb 0.4 oz) 09/01/2025 2:04 PM EST Height 177.8 cm (5' 10 ) 09/01/2025 2:04 PM EST Body Mass Index 41.47 09/01/2025 2:04 PM EST documented in this encounter Functional Status * BP Answer Date of Assessment Author 125/82 09/01/2025 2:04 PM Maximino Christianson * Pulse Answer Date of Assessment Author 67 09/01/2025 2:04 PM Maximino Christianson * Resp Answer Date of Assessment Author 18 09/01/2025 2:04 PM Maximino Christianson * SpO2 Answer Date of Assessment Author 96 09/01/2025 2:04 PM Maximino Christianson * Height Answer Date of Assessment Author 70 09/01/2025 2:04 PM Maximino Christianson * Weight Answer Date of Assessment Author 4624.37 09/01/2025 2:04 PM Maximino Christianson * BMI (Calculated) Answer Date of Assessment Author 41.6 09/01/2025 2:04 PM Maximino Christianson * Percent Excess Weight Loss Answer Date of Assessment Author 0 09/01/2025 2:04 PM Maximino Christianson * Total Weight Change Percent Answer Date of Assessment Author 2222 09/01/2025 2:04 PM Maximino Christianson * Weight Change Since Preop Answer Date of Assessment Author 131.07 09/01/2025 2:04 PM Maximino Christianson * Initial Excess Weight Answer Date of Assessment Author -75.3 09/01/2025 2:04 PM Maximino Christianson * IBW in lbs (Bariatric) Answer Date of Assessment Author 166 09/01/2025 2:04 PM Maximino Christianson * Weight Change Since Last Visit Answer Date of Assessment Author 131.07 09/01/2025 2:04 PM Maximino Christianson * IBW in kg (Bariatric) Answer Date of Assessment Author 75.3 09/01/2025 2:04 PM Maximino Christianson * Percent of IBW Answer Date of Assessment Author 6,141.26 09/01/2025 2:04 PM Maximino Christianson * EBW (kg) Answer Date of Assessment Author 4,622.24 09/01/2025 2:04 PM Maximino Christianson EBW (lbs) Answer Date of Assessment Author 4614 09/01/2025 2:04 PM Maximino Christianson Weight Change 24 hrs Answer Date of Assessment Author -2.711 09/01/2025 2:04 PM Maximino Christianson BSA (Calculated - sq m) Answer Date of Assessment Author 2.54 09/01/2025 2:04 PM Maximino Christianson BMI (Calculated) Answer Date of Assessment Author 41.47 09/01/2025 2:04 PM Maximino Christianson IBW/kg (Calculated) Male Answer Date of Assessment Author 73 09/01/2025 2:04 PM Maximino Christianson * IBW/kg (Calculated) Female Answer Date of Assessment Author 68.5 09/01/2025 2:04 PM Maximino Christianson Restart Vitals Timer Answer Date of Assessment Author Yes 09/01/2025 2:04 PM Maximino Christianson IBW/kg (Calculated) Answer Date of Assessment Author 73 09/01/2025 2:04 PM Maximino Christianson Weight in (lb) to have BMI = 25 Answer Date of Assessment Author 173.9 09/01/2025 2:04 PM Maximino Christianson BMI (Calculated) Answer Date of Assessment Author 41.6 09/01/2025 2:04 PM Maximino Christianson Percent Excess Weight Loss Answer Date of Assessment Author 0 09/01/2025 2:04 PM Maximino Christianson Weight Change Since Preop Answer Date of Assessment Author 131.1 09/01/2025 2:04 PM Maximino Christianson Initial Excess Weight Answer Date of Assessment Author -75.3 09/01/2025 2:04 PM Maximino Christianson IBW in kg (Bariatric) Answer Date of Assessment Author 75.3 09/01/2025 2:04 PM Maximino Christianson * IBW in lb (Bariatric) Answer Date of Assessment Author 166 09/01/2025 2:04 PM Maximino Christianson * Weight Change Since Last Visit Answer Date of Assessment Author 131.1 09/01/2025 2:04 PM Maximino Christianson Percent of IBW Answer Date of Assessment Author 174.11 09/01/2025 2:04 PM Maximino Christianson EBW (kg) Answer Date of Assessment Author 55.77 09/01/2025 2:04 PM Maximino Christianson EBW (lb) Answer Date of Assessment Author 123.02 09/01/2025 2:04 PM Maximino Christianson Difference in Weight Since Last Visit Answer Date of Assessment Author -2.71 09/01/2025 2:04 PM Maximino Christianson IBW/kg (Calculated) Answer Date of Assessment Author 73 09/01/2025 2:04 PM Maximino Christianson Adult Low Range Vt 6mL/kg Answer Date of Assessment Author 438 09/01/2025 2:04 PM Maximino Christianson Adult Moderate Range Vt 8mL/kg Answer Date of Assessment Author 584 09/01/2025 2:04 PM Maximino Christianson Adult High Range Vt 10mL/kg Answer Date of Assessment Author 730 09/01/2025 2:04 PM Maximino Christianson Pain Assessment Question Answer Date of Assessment Author Pain Location Knee 09/01/2025 2:03 PM Maximino Gurrola Pain Orientation Left 09/01/2025 2:03 PM Maximino Wallis Pain Assessment 0-10 09/01/2025 2:03 PM Maximino Yepez Pain Score 5 09/01/2025 2:03 PM DENIS Hanson tteMaximino BP Answer Date of Assessment Author 125/82 09/01/2025 2:04 PM Maximino Christianson Pulse Answer Date of Assessment Author 67 09/01/2025 2:04 PM Maximino Christianson Resp Answer Date of Assessment Author 18 09/01/2025 2:04 PM Maximino Christianson SpO2 Answer Date of Assessment Author 96 09/01/2025 2:04 PM Maximino Christianson Height Answer Date of Assessment Author 70 09/01/2025 2:04 PM Maximino Christianson Weight Answer Date of Assessment Author 4624.37 09/01/2025 2:04 PM Maximino Christianson BSA (Calculated - sq m) Answer Date of Assessment Author 2.54 09/01/2025 2:04 PM Maximino Christianson BMI (Calculated) Answer Date of Assessment Author 41.47 09/01/2025 2:04 PM Maximino Christianson * Restart Vitals Timer Answer Date of Assessment Author Yes 09/01/2025 2:04 PM Maximino Christianson * Weight in (lb) to have BMI = 25 Answer Date of Assessment Author 173.9 09/01/2025 2:04 PM Maximino Christianson * Pain Assessment Question Answer Date of Assessment Author Pain Location Knee 09/01/2025 2:03 PM Maximino Gurrola Pain Orientation Left 09/01/2025 2:03 PM Maximino Wallis Pain Score 5 09/01/2025 2:03 PM Maximino Gurrola documented as of this encounter Mental Status * BP Answer Entry Date Author 125/82 09/01/2025 2:04 PM Maximino Christianson * Pulse Answer Entry Date Author 67 09/01/2025 2:04 PM Maximino Christianson * Resp Answer Entry Date Author 18 09/01/2025 2:04 PM Maximino Christianson * SpO2 Answer Entry Date Author 96 09/01/2025 2:04 PM Maximino Christianson * Height Answer Entry Date Author 70 09/01/2025 2:04 PM Maximino Christianson Weight Answer Entry Date Author 4624.37 09/01/2025 2:04 PM Maximino Christianson BMI (Calculated) Answer Entry Date Author 41.6 09/01/2025 2:04 PM Maximino Christianson * Percent Excess Weight Loss Answer Entry Date Author 0 09/01/2025 2:04 PM Maximino Christianson * Total Weight Change Percent Answer Entry Date Author 2222 09/01/2025 2:04 PM Maximino Christianson * Weight Change Since Preop Answer Entry Date Author 131.07 09/01/2025 2:04 PM Maximino Christianson * Initial Excess Weight Answer Entry Date Author -75.3 09/01/2025 2:04 PM Maximino Christianson * IBW in lbs (Bariatric) Answer Entry Date Author 166 09/01/2025 2:04 PM Maximino Christianson Weight Change Since Last Visit Answer Entry Date Author 131.07 09/01/2025 2:04 PM Maximino Christianson IBW in kg (Bariatric) Answer Entry Date Author 75.3 09/01/2025 2:04 PM Maximino Christianson * Percent of IBW Answer Entry Date Author 6,141.26 09/01/2025 2:04 PM Maximino Christianson EBW (kg) Answer Entry Date Author 4,622.24 09/01/2025 2:04 PM Maximino Christianson EBW (lbs) Answer Entry Date Author 4614 09/01/2025 2:04 PM Maximino Christianson * Weight Change 24 hrs Answer Entry Date Author -2.711 09/01/2025 2:04 PM Maximino Christianson * BSA (Calculated - sq m) Answer Entry Date Author 2.54 09/01/2025 2:04 PM Maximino Christianson * BMI (Calculated) Answer Entry Date Author 41.47 09/01/2025 2:04 PM Maximino Christianson * IBW/kg (Calculated) Male Answer Entry Date Author 73 09/01/2025 2:04 PM Maximino Christianson * IBW/kg (Calculated) Female Answer Entry Date Author 68.5 09/01/2025 2:04 PM Maximino Christianson * Restart Vitals Timer Answer Entry Date Author Yes 09/01/2025 2:04 PM Maximino Christianson * IBW/kg (Calculated) Answer Entry Date Author 73 09/01/2025 2:04 PM Maximino Christianson * Restart Pain Assessment Timer Answer Entry Date Author Yes 09/01/2025 2:03 PM Maximino Christianson * Weight in (lb) to have BMI = 25 Answer Entry Date Author 173.9 09/01/2025 2:04 PM Maximino Christianson * BMI (Calculated) Answer Entry Date Author 41.6 09/01/2025 2:04 PM Maximino Christianson * Percent Excess Weight Loss Answer Entry Date Author 0 09/01/2025 2:04 PM Maximino Christianson * Weight Change Since Preop Answer Entry Date Author 131.1 09/01/2025 2:04 PM Maximino Christianson * Initial Excess Weight Answer Entry Date Author -75.3 09/01/2025 2:04 PM Maximino Christianson * IBW in kg (Bariatric) Answer Entry Date Author 75.3 09/01/2025 2:04 PM Maximino Christianson * IBW in lb (Bariatric) Answer Entry Date Author 166 09/01/2025 2:04 PM Maximino Christianson * Weight Change Since Last Visit Answer Entry Date Author 131.1 09/01/2025 2:04 PM Maximino Christianson * Percent of IBW Answer Entry Date Author 174.11 09/01/2025 2:04 PM Maximino Christianson * EBW (kg) Answer Entry Date Author 55.77 09/01/2025 2:04 PM Maximino Christianson * EBW (lb) Answer Entry Date Author 123.02 09/01/2025 2:04 PM Maximino Christianson * Difference in Weight Since Last Visit Answer Entry Date Author -2.71 09/01/2025 2:04 PM Maximino Christianson * IBW/kg (Calculated) Answer Entry Date Author 73 09/01/2025 2:04 PM Maximino Christianson * Adult Low Range Vt 6mL/kg Answer Entry Date Author 438 09/01/2025 2:04 PM Maximino Christianson * Adult Moderate Range Vt 8mL/kg Answer Entry Date Author 584 09/01/2025 2:04 PM Maximino Christianson * Adult High Range Vt 10mL/kg Answer Entry Date Author 730 09/01/2025 2:04 PM Maximino Christianson * Pain Assessment Question Answer Entry Date Author Pain Location Knee 09/01/2025 2:03 PM Maximino Gurrola Pain Orientation Left 09/01/2025 2:03 PM Maximino Wallis Pain Score 5 09/01/2025 2:03 PM Maximino Anthony documented in this encounter Miscellaneous Notes * Progress Notes - Lamont Lee MD - 09/01/2025 1:40 PM EST Patient follow-up for left knee arthritis his last injection gave him good relief he is still not exercising much and he is here today asking for another injection. Past medical history, surgical, social, family, history, medications, and allergies were all reviewed in the intake questionnaire. Patient completed a 15 point review of systems which is scanned into the medical documentation. Pertinent positives and negatives are listed in history of present illness. Patient is pleasant with normal affect. They are awake, alert, oriented and in no acute distress. Skin exam shows no sign of abnormal change. Cardiopulmonary examination shows a regular rate and rhythm with no respiratory difficulty on room air. Left knee is benign he has a varus alignment range ofmotion from 5-110 degrees no calf pain distal circulation motor and sensation are intact X-rays were reviewed they show end-stage arthritis of the left knee Assessment left knee end-stage arthritis Plan injection follow-up 3 months After informed consent discussion was had regarding the risks of infection, failure to releive pain, and allergic reaction to the injection, consent was obtained, the left knee site was sterilly prepped and draped in the normal fashion. Injection of a cobination of 3cc 1% lidocaine, 3cc 0.5% marcaine, and 80mg kenalog was performed. Patient tolerated the procedure well. Sterile dressing was placed. documented in this encounter Plan of Treatment Upcoming Encounters Date Type Department Care Team (Late st Contact Info) Description 12/08/2025 2:10 PM EST Office Visit Medical Office Building [facility] [address] [facility], [address] [place] [address] Lamont Lee MD [address] [facility] [address] [place] [address] documented as of this encounter Visit Diagnoses Diagnosis Primary osteoarthritis of left knee- Primary documented in this encounter Additional Health Concerns Assessment Noted Time A fall risk assessment has been complete d for the patient 09/01/2025 2:04 PM EST A Body Mass Index follow-up plan has been documented for the patient 09/01/2025 3:16 PM EST documented as of this encounter Care Teams 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
--- OUTSIDE RECORDS SUMMARY | 2025-10-06 14:57 | XMS_ITS | Data Portability ---
Author Organization CAROL[facility]RA[facility] Address [address] [facility] [address] [place] [address] Care Team Providers Care Log Inspector Name Role Phone NINA BAEZ [employer] Manager Assessment Encounter Date Assessment Date Assessment LastModified by Organization Details LastModified Time 01/02/2018 01/02/2018 ASSESSMENT: Left ankle mild arthritis. PLAN: I would not change anything. Continue to wear arthroses. Take his Celebrex. See him back in 3 months. [email or web address] Not available 01/03/2018 10:04:30 04/03/2018 04/03/2018 ASSESSMENT: Improvement symptoms, left ankle arthritis. PLAN: We are going to try him with an ankle brace and he can try that plus or minus the foot orthosis he has been using and we will see him back in a couple of months. Also, he will continue the Celebrex since it seems to be helping. [email or web address] Not available 04/04/2018 07:26:55 05/15/2018 05/15/2018 Assessment is that of mild arthritis of his left ankle. Plan: I think he can be seen back again in about 2 months for his next visit. Continue work without limitation changes. [email or web address] Not available 05/16/2018 14:13:24 07/17/2018 07/17/2018 ASSESSMENT: Improvement in left ankle mild arthritis. PLAN: When he goes back to work, I would like to have him work in 3 to 4 weeks, then return to see us and if still improving perhaps he will be at [facility]. [email or web address] Not available 07/17/2018 22:27:17 09/16/2018 09/16/2018 ASSESSMENT: Improvement in probable left ankle mild arthritis. PLAN: I think he can be discharged from further followup. He does not have any permanent partial impairment. [email or web address] Not available 09/16/2018 18:33:50 Plan of Treatment Reminders Order Date Submit Date Provider Last Modified By Organization Details Last Modified Time Details Appointments None record ed. Lab None record ed. Referral None record ed. Procedures None record ed. Surgeries None record ed. Imaging None record ed. Medication Orders None record ed. Patient TargetsNo targets recorded. Patient Instructions Encounter Date Encounter Id Patient Instructions Last Modified By Organization Details Last Modified Time 01/02/2018 [id number] osteoarthritis: care instructions [email or web address] Not available 01/04/2018 14:05:29 Reason for Referral None Reported. Results Created Date Observation Date Name Description Value Unit Range Abnormal Flag Note LastModifiedBy Organization Detail LastModifiedTime 01/03/20 18 01/02/2018 XR, ankle , 3 or more view Jennifer Asencio [facility] [address] [place] [address] Patimegan cai Name: PALMA cai : [id number] [address] 80 Orderi ng Provid er: ALBERTO Cia EXAM DATE: 2017 EXAM: XR LT ANKLE COMPLE TE COMPAR MICHELET: None. HISTOR Y: Left ankle pain. FINDIN GS: The bones of the ankle are normal in alignm ent. There is no eviden ce of fractu re. There is mild spurri ng along the fibula r tip and medial malleo lar tip. The ankle mortis e is congru ent. There is mild enthes opathi c change about the calcan eus. IMPRES SHERIE: 1. There are mild degene rative change s in the left ankle. Interp reted By: Elizabeth lay MD Electr onical ly Signed By: Elizabeth lay MD on 018 2:08 PM [email or web address] [facility] [place] [address], [place], [address], 01/02/2018 14:43:13 Result Notes Documentation Provider Name and Address Organization Details Recorded Time Xr, Ankle, 3 Or More View : [facility] [address] [address] Patient Name: PALMA CLAY Patient : 1955 Patient Ordering Provider: ALBERTO OLSON EXAM DATE: 01/02/2018 EXAM: XR LT ANKLE COMPLETE COMPARISON: None. HISTORY: Left ankle pain. FINDINGS: The bones of the ankle are normal in alignment. There is no evidence of fracture. There is mild spurring along the fibular tip and medial malleolar tip. The ankle mortise is congruent. There is mild enthesopathic change about the calcaneus. IMPRESSION: 1. There are mild degenerative changes in the left ankle. Interpreted By: Guillermo Ashraf MD RTO OLSON MD [address] [place] [address], [id number] 01/02/2018 14:43:13 Procedures Surgical History Date Name Laterality Status Provider Name and Address Organization Details Recorded Time 06/25/20 18 Cholecystectomy completed Delia [facility] 07/17/2018 13:47:20 Orthopedic Surgery completed Dimitris le [facility] 09/26/2017 08:16:34 Appendectomy completed Delia [facility] 09/26/2017 08:16:47 Imaging Results None recorded. Procedure Notes None recorded. Medical Equipment None Reported. Allergies No known drug allergies Medications Name Sig Start Date Stop Date Status Note LastModified by Organization Details LastModified Time omeprazole 40 mg capsule,blue yed release Take 1 capsule every day by oral route. active Not Available Not Available No t Available aspirin 81 mg tablet,delay ed release Take 1 tablet every day by oral route. 09/16 completed Not Available Not Available Not Available Zantac 150 mg tablet Take 1 tablet twice a day by oral route. active Not Available Not Available No t Available bisoprolol fumarate 5 mg tablet Take 1 tablet every day by oral route. active Not Available Not Available No t Available Celebrex 200 mg capsule Take 1 capsule every day by oral route. active Not Available Not Available No t Available furosemide 20 mg tablet Take 1 tablet every day by oral route. active Not Available Not Available No t Available gabapentin 100 mg capsule Take 1 capsule twice a day by oral route. 01/02 completed Not Available Not Available Not Available Eliquis 5 mg tablet Take 1 tablet twice a day by oral route. active Not Available Not Available No t Available Vitals Date Recorded Body height Body mass index (BMI) Body weight Systolic And Diastolic Provider Name and Address Organization Details Last Updated DateTime 01/02/2018 177.8 cm 41.4 kg/m2 151909.7 g 120/74 mm[Hg] [facility] 01/02/2018 14:23:18 Date Recorded Pain severity - 0-10 verbal numeric rating [Score] - Reported Provider Name and Address Organization Details Last Updated DateTime 01/02/2018 2 Not Available Replaced by [facility] 10:52:40 Date Recorded Body height Body mass index (BMI) Body weight Systolic And Diastolic Provider Name and Address Organization Details Last Updated DateTime 04/03/2018 177.8 cm 42.4 kg/m2 775537.55 g 120/76 mm[Hg] [facility] 04/03/2018 14:10:53 Date Recorded Pain severity - 0-10 verbal numeric rating [Score] - Reported Provider Name and Address Organization Details Last Updated DateTime 04/03/2018 2 Not Available Replaced by [facility] 8 11:02:03 Date Recorded Body height Body mass index (BMI) Body weight Systolic And Diastolic Provider Name and Address Organization Details Last Updated DateTime 05/15/2018 177.8 cm 42 kg/m2 133014.56 g 116/73 mm[Hg] [facility] 05/15/2018 14:20:53 Date Recorded Pain severity - 0-10 verbal numeric rating [Score] - Reported Provider Name and Address Organization Details Last Updated DateTime 05/15/2018 1 Not Available Replaced by [facility] 11:06:04 Date Recorded Body height Body mass index (BMI) Body weight Systolic And Diastolic Provider Name and Address Organization Details Last Updated DateTime 07/17/2018 177.8 cm 39.6 kg/m2 704208.49 g 112/72 mm[Hg] [facility] 07/17/2018 13:45:28 Date Recorded Pain severity - 0-10 verbal numeric rating [Score] - Reported Provider Name and Address Organization Details Last Updated DateTime 07/17/2018 1 Not [facility] 11:12:20 Date Recorded Body height Body mass index (BMI) Body weight Systolic And Diastolic Provider Name and Address Organization Details Last Updated DateTime 09/16/2018 177.8 cm 39 kg/m2 764742.33 g 120/78 mm[Hg] Deliaryan Arteaga [facility] 09/16/2018 13:48:45 Date Recorded Pain severity - 0-10 verbal numeric rating [Score] - Reported Provider Name and Address Organization Details Last Updated DateTime 09/16/2018 5 Not Available Replaced by [facility] 8 10:32:57 Social History Question Answer Notes LastModified by Organizat ion Details LastModified Time Tobacco Smoking Status Never Smoker Delia Arteaga [facility] 09/26/2017 08:14:43 Accident Related Injury Yes [email or web address] Information not available 11/21/2017 What Is Your Level Of Caffeine Consumption? Heavy Coffee And Soda 60oz Daily [email or web address] Information not available 09/26/2017 Rate The Severity Of Your Symptoms: (0-10 With 0=none And 10=worst Possible) 5 [email or web address] Information not available 09/16/2018 Date Of Injury: 07/04/2017 [email or web address] Informati on not available 04/03/2018 Have You Been Treated For This Problem Before? Yes [email or web address] Information not available 11/21/2017 Will This Be Filed As Workers' Compensation? Yes [email or web address] Information not available 11/21/2017 What Was The Date Of Your Most Recent Tobacco Screening? 09/16/2018 Information not available 11/25/2019 Has Tobacco Cessation Counseling Been Provided? No [email or web address] Information not available 09/16/2018 Work Related Injury? Yes Information not available 11/21/2017 Sex: Unknown Functional Status Question Answer Note LastModified by Organization D etails LastModified Time What is your level of alcohol consumption? None [email or web address] Information not available 09/26/2017 Are you currently employed? Yes [email or web address] Information not available 09/16/2018 What is your occupation? [employer] [email or web address] Information not available 09/16/2018 Mental Status None recorded. Family History Relationship Description Onset Age of this Age Resolved Age Notes LastModified by Organization Details LastModified Time Unspecified Relation Arthritis Not available 09/08 08:13:37 Unspecified Relation Heart disease [email or web address] Not available 07/17 13:45:36 Unspecified Relation Diabetes mellitus [email or web address] Not available 09/26 08:13:51 Unspecified Relation Myocardial infarction [email or web address] Not available 09/08 08:14:01 Unspecified Relation Tuberculosis [email or web address] Not available 1 11/27/2016 08:14:08 Unspecified Relation early in family [email or web address] Not available 07/17/2018 13:45:36 Medical History Condition Response Allergies/Hayfever Y Coronary Artery Disease N Anxiety/Depression N Other N Gout N Thyroid Disease N Chronic Obstructive Pulmonary Disease N Kidney Stones N Heart Conditions Y Hernia N Migraines N COPD N Glaucoma N Pneumonia N Skin Problems N Immune System Disorder N Anesthesia Complications N Heart Attack (SC) N Gastrointestinal Disease N Mental Illness N Neurological Problems N Diabetes N Anticoagulation therapy N Rheumatic Fever N Bleeding Disorder N Seizures/Epilepsy N Arthritis Y Serious Illness or Injuries N Blood Clot Y Tuberculosis N Genetic Disorder N AIDS/HIV N Cancer N Stroke N Asthma Y Peripheral Vascular Disease N Blood Thinners Y Sleep Apnea N Alcohol Overuse/Alcohol Abuse N High Cholesterol N Liver Disease N Included as Review of Systems Y Hypertension Y Osteoporosis N Kidney Disease N Past Encounters Encounter ID Performer Location Encounter Start Date Encounter Closed Date Diagnosis/Indication Diagnosis SNOMED-CT Code Diagnosis ICD10 Code Diagnosis IMO Codes Diagnosis Note [id number] ALBERTO OLSON MD [facility] [address] [place] [address] 09/26/2017 07:44:56 09/26/2017 08:45:50 Localized, secondary osteoarthritis of the ankle and/or foot 170907622 M19.945 [id number] ALBERTO OLSON MD [facility] [address] [place] [address] 11/21/2017 08:54:10 11/21/2017 10:00:56 Localized, secondary osteoarthritis of the ankle and/or foot 483861920 M19.171 M19.172 Ankle pain 141172005 M25 .470 [id number] ALBERTO OLSON MD [facility] [address] [address] 01/02/2018 13:39:34 01/02/2018 14:53:42 Idiopathic osteoarthritis 954432056 M19.91 [id number] ALBERTO OLSON MD [facility] [address] [address] 04/03/2018 13:41:38 04/03/2018 15:24:12 Localized, secondary osteoarthritis of the ankle and/or foot [id number] M19.324 [id number] ALBERTO OLSON MD [facility] [address] [address] 05/15/2018 13:47:35 05/16/2018 07:52:43 Post traumatic osteoarthritis 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 M19.040 [id number] ALBERTO OLSON MD [facility] [address] [address] 07/17/2018 13:34:33 07/18/2018 07:52:20 Pain of left ankle joint [id number] 9176045 M25.572 Localized, secondary osteoarthritis of the ankle and/or foot 046667205 M19.580 [id number] ALBERTO OLSON MD [facility] [address] [address] 09/16/2018 13:40:57 09/16/2018 14:25:10 Pain of left ankle joint [id number] 6318867 M25.572 Health Concerns Section Related Observation LastModified by Organization Detai ls LastModified Time None Recorded Concern Status LastModified by Organization Details LastModified Time None Recorded Advance Directives Directive None Recorded Payers Insurance Date Sequence Insurance Name Policy Number Policy Cancino Covered Member ID Cancino Member ID Guarantor Name 09/01/2020 JADA Wagner Notes Date Note Type Note Provider Name and Address Organization Details Recorded Time 01/02/2018 text/html Has a history of left knee arthritis. Has had multiple injections and also left ankle discomfort over many months. He has recently got some orthoses, which he feels are helpful, especially with a cushioned low shoes that he wears. He does pretty arduous work. He also takes Celebrex for his knee, but receives side benefit for [place], [address], [facility] 01/04/2018 14:05:38 04/03/2018 text/html History of left ankle pain from being at work, standing as part of his job for quite a while. He complains of pain mainly anteriorly in his left ankle. He has been wearing the inserts that we got for him and also taking his Celebrex, both of which he thinks is helpful, but he still has some discomfort[place], [address], [facility] 04/11/2018 11:22:13 05/15/2018 text/html Doing well in a brace since his last visit, over the last month. Reports that he is a little bit improved. Most of his pain is directly anterior. He has been able to walk in his normal work. It bothers his most when he gets up and down a piece of equipment that he drives[place], [address], [facility] 05/16/2018 15:25:47 07/17/2018 text/html He has recently had a gallbladder surgery, so he had not been working for the last month or so. Says his ankle had been improving somewhat even prior to that event. Now, he is not having too much pain in his ankle, feels much improved, but he has not really tested it[place], [address], [facility] 07/22/2018 09:39:06 09/16/2018 text/html Has had a history of left ankle pain. He has been wearing boots, which seems to help better than the brace we have obtained for him. He has had a history of blood clots on a couple of occasions. Takes Eliquis now and had been on Coumadin in the past[place], [address], [facility] 09/18/2018 08:57:48
--- OUTSIDE RECORDS SUMMARY | 2025-10-06 14:57 | XMS_ITS | Clinical Summary ---
[facility] Organization [facility] Address [address] [place] [address] Care Team Providers Care Candle Molder Hand Name Role Phone Aubrey Burton MD Primary Care Provider [phone] Social History Tobacco Use Types Packs/Day Years Used Date Smoking Tobacco: Never Assessed Abuse Screen Answer Date Recorded Unsafe at Home or Work/School Not on file Feels Threatened by Someone? Not on file 06/2023 Does Anyone Keep You from Co ntacting Others or Doint Things Outside the Home? Not on file 07/16/2023 Physical Sign of Abuse Present Not on file 1 Housing Stability Answer Date Recorded Current Living Arrangements Not on file 06/2023 Potentially Unsafe Housing Conditions Not on jordan e 07/16/2023 Family and Community Support Answer Twin e Recorded Help with Day-to-Day Activities Not on file 07/16/2023 Lonely or Isolated Not on file 07/16/2023 Employment Answer Date Recorded Do you want help finding or keeping work or a tracy b? Not on file 07/16/2023 Disabilities Answer Date Recorded Concentrating, Remembering, or Making Decisions Difficulty Not on file 07/16/2023 Doing Errands Independently Difficulty Not on fi le 07/16/2023 Education Answer Date Recorded Help with school or training? Not on file Preferred Language Not on file 07/16/2023 Sex and Gender Information Value Date Recorded Sex Assigned at Not on file Legal Sex Male 12:11 PM EDT Gender Identity Not on file Sexual Orientation Not on file Plan of Treatment Health Maintenance Due Date Last Done Comments TDAP/TD VACCINES (1 - Tdap) 1976 COLOGUARD 2002 COLON CANCER SCREENING 5 YEAR SIGMOIDOSCOPY 2002 COLONOSCOPY [address] CANCER SCREENING 2002 CT COLONOGRAPHY 2002 FECAL OCCULT BLOOD TEST 2002 FIT Testing (1 year) 2002 Pneumococcal Vaccine 50+ (1 of 1 - PCV) 2007 ZOSTER VACCINE (1 of 2) 2007 ANNUAL PHYSICAL 02/25/2018 HEPATITIS C SCREENING 02/25/2018 AAA SCREEN ONCE 2022 INFLUENZA VACCINE 05/08/2025 COVID-19 Vaccine ( season) 2025 Insurance [facility] PPO Care Teams Candle Molder Hand Relationship Specialty Start Date End Date Aubrey Burton MD [address] [facility] [address] [place] [address] PCP - General Family Medicine 02/04/18
--- OUTSIDE RECORDS SUMMARY | 2025-10-06 14:57 | XMS_ITS | Clinical Summary ---
Author Organization [facility] Address [address] [place] [address] Phone [email or web address] Care Team Providers Care Director Of Guidance Name Role Phone Unavailable Primary Care Provider Unavailabl e Allergies No known active allergies Medications Celecoxib (CELEBREX PO) Take by mouth. Active furosemide (LASIX) 20 MG tablet Take 20 mg by mouth 2 (two) times a day. Active bisoprolol (ZEBETA) 5 MG tablet Take 5 mg by mouth 1 (one) time each day. Active gabapentin (NEURONTIN) 100 MG capsule Take 100 mg by mouth 3 (three) times a day. Active omeprazole (PriLOSEC) [address] capsule Take 20 mg by mouth 1 (one) time each day. 09/19/2020 Active Eliquis 2.5 MG tablet 07/26/2020 Active Active Problems Problem Noted Date Diagnosed Date S/P laparoscopic cholecystectomy 07/25/2018 Osteoarthritis of ankle and foot, left 8 Primary localized osteoarthrosis, lower leg 06/09 Overview (03/06/2018): Internal derangement of knee 05/20/2008 Overview (03/06/2018): Resolved Problems Problem Noted Date Diagnosed Date Resolved Date Acute upper respiratory infection 11/11/2010 07/25/2018 Overview (03/06/2018): Routine general medical exam ination at a health care facility 04/26/2010 07/25/2018 Overview (03/06/2018): Pain in joint, shoulder region 03/01/2010 07/25/2018 Overview (03/06/2018): Acute bronchitis 11/18/2009 07/25/2018 Overview (03/06/2018): Screening for hypertension 10/18/2009 1 Overview (03/06/2018): Acute sinusitis 12/14/2008 07/25/2018 Overview (03/06/2018): Health examination of defined subpopulation 04/30/2008 07/25/2018 Overview (03/06/2018): Tachycardia 04/16/2008 07/25/2018 Overview (03/06/2018): Shortness of breath 04/16/2008 07/25/20 Overview (03/06/2018): Other examination of ears and hearing 04/07/2008 07/25/2018 Overview (03/06/2018): Sprain and strain of other s pecified sites of knee and leg 03/09/2008 07/25/2018 Overview (03/06/2018): Immunizations Immunization Administration Dates Next Due COVID-19 (Pfizer [place] 12 yrs+) ([id number]-[id number]) 021,12/24/2020 Social History Tobacco Use Types Packs/Day Years Used Date Smoking Tobacco: Never Smokeless Tobacco: Never Intimate Partner Violence Answer Date R ecorded Insults You Not on file 01/19/2021 Threatens You Not on file 01/19/2021 Screams at You Not on file 01/19/2021 Physically Hurt Not on file 01/19/2021 Intimate Partner Violence Score Not on file 01/19/2021 Stress Answer Date Recorded Stress in your Life Not on file 08/11/2024 Dealing with Stress 3 08/11/2024 Sex and Gender Information Value Date Recorded Sex Assigned at Not on file Legal Sex Male 9:44 AM CDT Gender Identity Not on file Sexual Orientation Not on file Last Filed Vital Signs Vital Sign Reading Time Taken Comments Blood Pressure 114/72 02/16/2021 11:33 AM EDT Pulse 99 02/21/2022 7:13 AM EDT Temperature 38.1 C (100.6 F) 03/02/2022 7:28 AM EDT Respiratory Rate 14 09/18/2018 12:13 PM EST Oxygen Saturation 97% 02/16/2021 11:33 AM EDT Inhaled Oxygen Concentration - - Weight 130 kg (287 lb) 02/16/2021 11:33 AM EDT Height 180.3 cm (5' 11 ) 02/16/2021 11:33 AM EDT Body Mass Index 40.03 02/16/2021 11:33 AM EDT Plan of Treatment Health Maintenance Due Date Last Done Comments CT Colonography 1955 Colonoscopy 1955 Colorectal Cancer Screening Combo 1955 DNA Cologuard 1955 Dental Cleaning/Exam 1955 FIT or FOBT Test 1955 Sigmoidoscopy 1955 Tetanus Diphtheria and Pertussis Immunization (1 - Tdap) 1976 Pneumococcal: 50+ Years (1 o f 1 - PCV) 2007 Zoster Immunization (1 of 2) 2007 Covid-19 Immunization (3 - season) 2025 01/14/2021, 12/24/2020 Influenza Immunization (#1) 2025 HIB Immunization Aged Out No longer e ligible based on patient's age to complete this topic HPV Immunization Aged Out No longer e ligible based on patient's age to complete this topic Hepatitis A Immunization Aged Out No longer eligible based on patient's age to complete this topic Hepatitis B Immunization Aged Out No longer eligible based on patient's age to complete this topic Polio Immunization Aged Out No longer eligible based on patient's age to complete this topic Insurance [address] [place] [address] [facility]
--- OUTSIDE RECORDS SUMMARY | 2025-10-06 14:57 | XMS_ITS | Encounter Summary ---
Author Organization Healthcare Address [address] [place] [address] Care Team Providers Care Chemistry Lab Instructor Name Role Phone Pcp, No Primary Care Provider Unavailabl e Encounter Details Date Type Department Care Team (Latest Contact Info) Description 09/01/2025 Travel Social History Tobacco Use Types Packs/Day Years Used Date Smoking Tobacco: Never Passive Smoke Exposure: Never Smokeless Tobacco: Never Alcohol Use Standard Drinks/Week Comments Never 0 (1 standard drink = 0.6 oz pur e alcohol) Sex and Gender Information Value Date Recorded Sex Assigned at Male 08/28/2021 5:50 PM EST Legal Sex Male 8:41 PM EDT Gender Identity Male 08/28/2021 5:50 PM EST Sexual Orientation Straight 08/28/2021 5: 50 PM EST documented as of this encounter Functional Status * Communicable Disease Screening Question Answer Date of Assessment Author Have you been in contact wit h someone who was sick? No / Unsure 09/01/2025 1:35 PM Juma Cleaning Do you have any of the following new or worsening symptoms? None of these 09/01/2025 1:35 PM Juma Cleaning * Travel Screening Question Answer Date of Assessment Author Have you traveled [place] or domestically in the last month? No 09/01/2025 1:35 PM Juma Wang documented as of this encounter Mental Status * Communicable Disease Screening Question Answer Entry Date Author Have you been in contact wit h someone who was sick? No / Unsure 09/01/2025 1:35 PM Juma Cleaning Do you have any of the following new or worsening symptoms? None of these 09/01/2025 1:35 PM EST Juma Davis * Travel Screening Question Answer Entry Date Author Have you traveled [place] or domestically in the last month? No 09/01/2025 1:35 PM EST Juma Leija documented in this encounter Plan of Treatment Upcoming Encounters Date Type Department Care Team (Late st Contact Info) Description 12/08/2025 2:10 PM EST Office Visit Medical Office Building [facility] [address] [facility], [address] [place] [address] Lamont Lee MD [address] [place] [address] documented as of this encounter Visit Diagnoses Not on filedocumented in this encounter Additional Health Concerns Assessment Noted Time A fall risk assessment has been complete d for the patient 09/01/2025 2:04 PM EST A Body Mass Index follow-up plan has been documented for the patient 09/01/2025 3:16 PM EST documented as of this encounter Care Teams Chemistry Lab Instructor Relationship Specialty Start Date End Date Pcp, No [address] [place] [address] PCP - General Family Medicine 07/11/22 documented as of this encounter
--- OUTSIDE RECORDS SUMMARY | 2025-10-06 14:57 | XMS_ITS | Clinical Summary ---
Author Organization [facility] Address [address] [place] [address] Care Team Providers Care Technical Support Professional Name Role Phone Pcp, No Primary Care Provider Unavailabl e Allergies No known active allergies Medications Eliquis 2.5 MG tablet 1 Active bisoprolol (Zebeta) 5 MG tablet 1 Active celecoxib (CeleBREX) 200 MG capsule 1 Active dicyclomine (Bentyl) 10 MG capsule 1 Active furosemide (Lasix) 20 MG tablet 1 Active gabapentin (Neurontin) 100 MG capsule 1 Active ondansetron ODT (Zofran-ODT) 4 MG disintegrating tablet 5 Active omeprazole (PriLOSEC) [address] capsule 1 Active cefuroxime (Ceftin) 500 MG tablet TAKE 1 TABLET BY MOUTH EVERY 12 HOURS FOR 10 DAYS 2 Active oxyCODONE-acetamino phen (Percocet) 5-325 MG tablet TAKE 1 TO 2 TABLETS BY MOUTH EVERY 4 TO 6 HOURS MAX OF 6 TABLETS PER DAY 3 Active clindamycin (Cleocin) 300 MG capsule Take 1 capsule (300 mg) by mouth. 3 Active amoxicillin (Amoxil) 500 MG capsule Take 1 capsule (500 mg) by mouth. 3 Active raNITIdine (Zantac) 150 MG tablet Take 1 tablet twice a day by oral route. Active fluticasone (Flonase) 50 MCG/ACT nasal spray USE 1 SPRAY(S) IN EACH NOSTRIL ONCE DAILY Active alpha tocopherol (Vitamin E) 400 units capsule 1 (one) time each day at the same time. Active Active Problems Problem Noted Date Diagnosed Date Osteoarthritis of ankle and foot, left 8 S/P laparoscopic cholecystectomy 07/25/2018 Primary localized osteoarthrosis, lower leg 06/09 Overview (08/30/2021): Rotator cuff tear, right 02/05/2014 Rotator cuff tendinitis, right 02/05/2014 Internal derangement of knee 05/20/2008 Overview (08/30/2021): Encounters Date Type Department Care Team Description 09/01/2025 1:40 PM EST Office Visit Medical Office Building [facility] [address] [facility], [address] [place] [address] Lamont Lee MD Primary osteoarthritis of left knee (Primary Dx) 09/01/2025 Travel from Last 3 Months Family History Medical History Relation Name Comments Other cancer Father Cardiac disorder Mother Diabetes Other Relation Name Status Comments Father Mother Other Social History Tobacco Use Types Packs/Day Years [...] Orientation Straight 08/28/2021 5: 50 PM EST Last Filed Vital Signs Vital Sign Reading [...] Mass Index 41.47 09/01/2025 2:04 PM EST Plan of Treatment Upcoming Encounters Date Type Department Care Team (Late st Contact Info) Description 12/08/2025 2:10 PM EST Office Visit Medical Office Building [facility] [address] [facility], [address] [place] [address] Lamont Lee MD [address] [place] [address] Health Maintenance Due Date Last Done Comments [facility]-Depression Screening 1957 [facility]-Hepatitis C Screening 1957 [facility]-Medicare Annual Wellness (AWV) 1955 [facility]-/Child/Adol SDOH Screenings 1957 [facility]- SDOH Screenings 1975 [facility]-Adult SDOH Screenings 1975 CT Colonography 2002 Colonoscopy 2002 FIT-DNA 2002 FIT 2002 FOBT 2002 Sigmoidoscopy 2002 [facility]-Colorectal Cancer Screening 2002 [facility]-RSV Vaccine: 60+ Years or (1 - Risk 50-74 years 1-dose series) 2007 [facility]-Zoster Vaccines (1 of 2) 2007 [facility]-DTaP,Tdap,and Td Vaccines (2 - Td or Tdap) 02/07/2025 02/07/2015 [id number] Vaccine ( season) 2025 06/29/2025, 06/21/2024, 07/08/2023, Additional history exists [facility]-Hepatitis A Vaccines Aged Out 01/14/2019, 06/2018 No longer eligible based on patient's age to complete this topic [facility]-Pneumococcal Vaccine: 50+ Years Completed 07/17/2023, 09/10/2014 [facility]-Influenza Vaccine Completed 06/10/2025 , 06/16/2024, 06/14/2023, Additional history exists [facility]-Obesity Intervention Completed 025, 06/02/2025, 02/24/2025, Additional history exists HPV Vaccines (No Doses Required) Completed [facility]-HIB Vaccines Aged Out No longer e ligible based on patient's age to complete this topic [facility]-IPV Vaccines Aged Out No longer e ligible based on patient's age to complete this topic [facility]-Rotavirus Vaccines Aged Out No lo nger eligible based on patient's age to complete this topic Insurance [facility]ICARE [facility] Care Teams Technical Support Professional Relationship Specialty Start Date End Date Pcp, [place] [address] PCP - General Family Medicine 07/11/22
[2025-10-06 16:40] LABS: Ferritin 106 ng/ml (17.9-464)
== END 2025-10-06 23:59 | disposition home or self-care (01) ==
LOC: LAB 14:54
PROVIDERS: PCP Family Medicine; Visit Provider Specialist
DX: E83.10 Disorder of iron metabolism, unspecified (principal)
CPT/HCPCS: 36415; 82728